=== PATIENT | male | born 1940 | race Caucasian/White ===

== ENCOUNTER 2021-03-08 20:44 | Inpatient (IN) | payer MEDICARE, OTHER ==
[~2021-03-08] VITALS: Ht 177.8 cm; Wt 97.4 kg
--- NOTE | 2021-03-08 20:55 | PDOC2 ---
CONSULT Date of Consult Date of Consult DATE: 03/08/21 TIME: 20:55 Reason for Consult Reason for Consult: Chest pain Referring Physician Referring Physician: Dr. Garcia Identification/Chief Complaint Chief Complaint Chest pain Source Source: Chart review, Patient History of Present Illness Reason for Visit: 80-year-old male without any previous cardiac history presented with chest pain, that he described as sharp in nature, worse with inspiration that began 4 days ago and has been there continuously. He complained of mild associated shortness of breath but denied any orthopnea/PND, palpitations or syncope. Past Medical History Past Medical History Gastroesophageal reflux disease Social History Social History Patient is a non-smoker and a nondrinker Allergies Allergies: Coded Allergies: No Known Drug Allergies (Unverified , 03/08/21) ROS PSYCHOLOGICAL ROS: No: Hallucinations Eyes: No Loss of vision HEENT: No: Epistaxis Respiratory: YES: Shortness of breath; No: Hemoptysis Cardiovascular: yes Chest Pain Gastrointestinal: No Vomiting, No Diarrhea Genitourinary: No Hematuria Neurological: No Seizures Skin: No Rash Physical Exam General: Alert, mild distress HEENT: Atraumatic Lungs: Clear to auscultation Heart: Regular rate Abdomen: Soft Extremities: No edema Neuro: Normal speech Psych/Mental Status: Mood NL Assessment/Plan Assessment/Plan Chest pain with pleuritic features. EKG showed sinus tachycardia with anterior ST depressions. Cannot rule out unstable angina or non-STEMI. Recommend CT chest to rule out PE due to pleuritic nature of his chest pain. Start heparin infusion per protocol. We will trend serial cardiac enzymes and if they are elevated, will consider cardiac catheterization. Thank you for your consultation. ELY TOLEDO MD Mar 08, 2021 20:55
[2021-03-08] MEDS ORDERED: HEPARIN 25,000UTS/250ML PREMIX 250 ML IV ONE (21:00)
[2021-03-08] MEDS ORDERED: fentaNYL PF VIAL 100 MCG/2 ML VIAL IVP ONE (21:00)
--- NOTE | 2021-03-08 21:05 | PHYS DOC ---
General Adult EDM: Chief Complaint: CHEST PAIN HPI: HPI: Patient is a 80 year old male brought in by EMS with report of chest pain which actually began 4 days ago. His pain was much subtle 4 days ago and became much worse this evening. He describes midsternal chest pain/pressure. He denies radiation of pain. He admits to nausea, dizziness and diaphoresis. He reports mild dyspnea and occasional mild pleuritic type chest pain, which is not persistent. He denies cough or hemoptysis. He denies fevers or chills. He denies leg pain or swelling. He denies syncope. He denies recent travel, surgery or hospitalization. He denies any previous similar symptoms. He denies any history of coronary artery disease, LA, or heart disease. He denies any previous history of cardiac evaluation. EMS gave him oral aspirin in route. He was noted to have ischemic changes on EKG. In route he was also noted to be tachycardic and hypotensive. He was given a 500 mL lactated Ringer's bolus in route with EMS. His blood pressure and heart rate are improved currently. EMS did indicate ST elevation in some anterior leads, with some ST depression in inferior leads. Therefore a STEMI was activated from the field. Dr. Machado was notified via phone of the patient's impending arrival, and he met the patient in the room shortly after the patient's arrival, examined him, examined the EKGs and assisted in direction of care. Review of Systems: Review of Systems: Constitutional: Denies fever or chills. [] Eyes: Denies change in visual acuity. [] HENT: Denies nasal congestion or sore throat. [] Respiratory: Denies cough, hemoptysis. Admits to some mild dyspnea. Cardiovascular: Reports chest pain. Denies peripheral edema. GI: Reports nausea and vomiting, though no vomiting in a few days. Denies abd ominal pain or diarrhea or constipation. : Denies urinary symptoms. Musculoskeletal: Denies back pain or joint pain. [] Integument: Denies rash. [] Neurologic: Denies headache, focal weakness or sensory changes. [] Endocrine: Denies polyuria or polydipsia. [] Lymphatic: Denies swollen glands. [] Psychiatric: Denies depression or anxiety. [] Heart Score: C/O Chest Pain: Yes HEART Score for Chest Pain: HEART Score for Chest Pain Response (Comments) Value History Highly Suspicious [address] Depression 2 Age > 65 2 Risk Factors 1 or 2 Risk Factors 1 Troponin >3 x Normal Limit 2 Total 9 Risk Factors: Risk Factors: DM, Current or recent (<one month) smoker, HTN, HLP, family history of CAD, obesity. Risk Scores: Score 0 - 3: 2.5% MACE over next 6 weeks - Discharge Home Score 4 - 6: 20.3% MACE over next 6 weeks - Admit for Clinical Observation Score 7 - 10: 72.7% MACE over next 6 weeks - Early Invasive Strategies Current Medications: Current Medications Medications (Trade) Dose Ordered Sig/Juan Start Time Stop Time Status Last Admin Dose Admin Fentanyl Citrate (Fentanyl 2ml Vial) 50 mcg 1X ONCE 03/08/21 21:00 03/08/21 21:01 UNV Heparin Sodium (Porcine) (Heparin Sodium) 4,000 unit 1X ONCE 03/08/21 21:00 10 21:01 UNV Heparin Sodium/ Dextrose 250 ml @ 0 mls/hr 1X ONCE 03/08/21 21:00 03/08/21 21:01 UNV Physical Exam: PE: Constitutional: Well developed, well nourished, nontoxic, mildly ill-appearing. Awake and alert and conversant on arrival. HENT: Normocephalic, atraumatic, bilateral external ears normal, oropharynx moist, no oral exudates, nose normal. [] Eyes: PERRLA, EOMI, conjunctiva normal, no discharge. [] Neck: Normal range of motion, no tenderness, supple, no stridor. [] Cardiovascular: Tachycardic, regular. +2 radial and posterior tibial pulses bilaterally. Cap refill is brisk, well-perfused appearing. Lungs & Thorax: Bilateral breath sounds clear to auscultation. No rales, rhonchi or wheezes. Equal chest rise. Speaks in full and clear sentences. No evidence of respiratory distress. Abdomen: Bowel sounds normal, soft, no tenderness, no masses, no pulsatile masses. [] Skin: Warm, dry, no erythema, no rash. [] Back: No tenderness, no CVA tenderness. [] Extremities: No tenderness, no cyanosis, no clubbing, ROM intact, no edema. No calf tenderness. Neurologic: Alert and oriented X 3, normal motor function, normal sensory function, no focal deficits noted. [] Psychologic: Affect normal, judgement normal, mood normal. [] EKG: EKG: EKG read at 2046. Rhythm is sinus tachycardia Rate is 113 bpm Frequent PVCs Incomplete right bundle branch block ST depression in anterior lateral leads No STEMI criteria. Second EKG read at 2232 Rhythm is sinus tachycardia Rate is 109 bpm Frequent PVCs No STEMI Radiology/Procedures: Radiology/Procedures: Chest x-ray is noted to demonstrate some mild cephalization, atelectasis in the left lower lobe. No other obvious acute process. Course & Med Decision Making: Course & Med Decision Making Pertinent Labs and Imaging studies reviewed. (See chart for details) Patient is given IV fentanyl and morphine for pain. He had already received oral aspirin. Dr. Machado had recommended heparin protocol, so heparin bolus and drip are initiated. IV magnesium, oral and IV potassium replacement are ordered. The patient is resting comfortably. His tachycardia is improving. His blood pressure is also improved. I have discussed the findings, differential diagnosis and plan of care with the patient. I have explained the plan for admission to the hospital. He verbalized understanding. Pat Disclaimer: Pat Disclaimer: This electronic medical record was generated, in whole or in part, using a voice recognition dictation system. Departure Departure Impression: Primary Impression: ACS (acute coronary syndrome) Disposition: ADMITTED INPATIENT Admitting Physician: SHAINA Condition: IMPROVED BRITTONGINGER DO Mar 08, 2021 21:05
[2021-03-08 21:21] LABS: BASO # 0.2 x10^3/uL (0.0-0.2); BASO % 1 % (0-3); EOS % 0 % (0-3); HEMOGLOBIN 12.4 g/dL (13.0-17.5); LYMPH # 1.6 x10^3/uL (1.0-4.8); LYMPH % 11 % (24-48); MEAN CORPUSCULAR HEMOGLOBIN 29 pg (25-35); MEAN CORPUSCULAR HGB CONC 34 g/dL (31-37); MEAN CORPUSCULAR VOLUME 86 fL (79-100); MONO # 0.9 x10^3/uL (0.0-1.1); MONO % 7 % (0-9); NEUT # 11.9 x10^3/uL (1.8-7.7); NEUT % 82 % (31-73); PLATELET COUNT 385 x10^3/uL (140-400); RED BLOOD COUNT 4.29 x10^6/uL (4.30-5.70); RED CELL DISTRIBUTION WIDTH 16.1 % (11.5-14.5); WHITE BLOOD COUNT 14.6 x10^3/uL (4.0-11.0)
[2021-03-08] MEDS ORDERED: HEPARIN for IV BOLUS 10,000 UNIT/10 ML VIAL. IV ONE (21:30)
[2021-03-08 21:36] LABS: ALBUMIN 2.5 g/dL (3.4-5.0); ALBUMIN/GLOBULIN RATIO 0.6 (1.0-1.7); CALCIUM 8.6 mg/dL (8.5-10.1); CREATININE 1.2 mg/dL (0.7-1.3); GFR 58.3; MAGNESIUM 1.6 mg/dL (1.8-2.4); TOTAL BILIRUBIN 0.7 mg/dL (0.2-1.0); TOTAL PROTEIN 6.7 g/dL (6.4-8.2)
[2021-03-08 21:39] LABS: POTASSIUM 2.6 mmol/L (3.5-5.1)
[2021-03-08] MEDS: HEPARIN 25,000UTS/250ML PREMIX 250 ML IV PRN (21:39)
[2021-03-08] MEDS ORDERED: POTASSIUM CHLORIDE 20MEQ 100 ML IV ONE (21:45)
[2021-03-08] MEDS ORDERED: POTASSIUM CHLORIDE 20 MEQ TABLET.ER. PO ONE (22:00)
[2021-03-08] MEDS ORDERED: MAGNESIUM SULFATE 1GM 100 ML IV ONE (22:00)
[2021-03-08] MEDS ORDERED: ONDANSETRON PF 4 MG/2 ML VIAL. IVP PRN (22:30)
[2021-03-08] MEDS ORDERED: MORPHINE SULFATE 4 MG/ML INJ. IVP ONE (23:00)
[2021-03-08] MEDS ORDERED: IV NORMAL SALINE 500ML BAG 500 ML IV ONE (23:00)
[2021-03-08] MEDS ORDERED: IV NORMAL SALINE 1000ML BAG 1,000 ML IV ONE (23:00)
--- NOTE | 2021-03-08 23:33 | EKG ---
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
--- NOTE | 2021-03-08 23:37 | EKG ---
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
--- NOTE | 2021-03-08 23:38 | RAD ---
INDICATION: Reason: chest pain / Spl. Instructions: / History: COMPARISON: August 2018 FINDINGS: Single view of chest obtained. Hypoexpanded exam. Linear opacity left lung base. Lead is seen projecting over the lower thoracic spi ne. Calcific atherosclerosis. Degenerative changes the spine. Severe degenerative changes left should er. Postoperative changes right shoulder with anchors seen. IMPRESSION: * Hypoexpanded exam with linear opacity at the left lung base which could be from atelectasis or inf iltrate. Electronically signed by: Rajiv Calderon MD (03/08/2021 11:36 PM) [id number]
[2021-03-08 23:40] VITALS: BP 99/75
[2021-03-08] MEDS: POTASSIUM CHLORIDE 10MEQ 100 ML IV SCH (23:54)
[2021-03-09] VITALS (11 sets, daily range): BP systolic 98–158; BP diastolic 61–89
[2021-03-09] MEDS: fentaNYL PF VIAL 100 MCG/2 ML VIAL IVP PRN ×3 (00:34→09:00)
[2021-03-09] MEDS: ANTI-COAG MONITOR BY PHARMACY. MC PRN ×2 (00:49→11:56)
[2021-03-09] MEDS: POTASSIUM CHLORIDE 10MEQ 100 ML IV SCH (01:03)
[2021-03-09] MEDS ORDERED: PRED2.5T PO (04:45)
[2021-03-09] MEDS ORDERED: MEMA10TA PO (04:45)
[2021-03-09] MEDS ORDERED: TRAM50TA PO (04:45)
[2021-03-09] MEDS ORDERED: OMEP20CA16 PO (04:45)
[2021-03-09] MEDS ORDERED: CHOL10004 PO (04:45)
[2021-03-09] MEDS ORDERED: MEGE40TA3 PO (04:45)
[2021-03-09] MEDS ORDERED: CYAN100072 PO (04:45)
[2021-03-09] MEDS ORDERED: ABIR250T PO (04:45)
[2021-03-09] MEDS ORDERED: FOLI0.4T5 PO (04:45)
[2021-03-09] MEDS ORDERED: CALC650T7 PO (04:45)
[2021-03-09 05:01] LABS: BASO % 0 % (0-3); EOS % 0 % (0-3); HEMATOCRIT 33.1 % (39.0-53.0); HEMOGLOBIN 11.2 g/dL (13.0-17.5); LYMPH # 0.8 x10^3/uL (1.0-4.8); LYMPH % 8 % (24-48); MEAN CORPUSCULAR HEMOGLOBIN 29 pg (25-35); MEAN CORPUSCULAR HGB CONC 34 g/dL (31-37); MEAN CORPUSCULAR VOLUME 87 fL (79-100); MONO # 0.8 x10^3/uL (0.0-1.1); MONO % 7 % (0-9); NEUT # 9.1 x10^3/uL (1.8-7.7); NEUT % 84 % (31-73); PLATELET COUNT 327 x10^3/uL (140-400); RED BLOOD COUNT 3.82 x10^6/uL (4.30-5.70); RED CELL DISTRIBUTION WIDTH 15.9 % (11.5-14.5); WHITE BLOOD COUNT 10.8 x10^3/uL (4.0-11.0)
[2021-03-09 05:18] LABS: CREATININE 1.2 mg/dL (0.7-1.3); GFR 58.3; MAGNESIUM 2.2 mg/dL (1.8-2.4)
[2021-03-09 05:34] LABS: CHOLESTEROL/HDL RATIO 5.4
[2021-03-09] MEDS: HEPARIN for IV BOLUS 10,000 UNIT/10 ML VIAL. IV PRN (09:19)
[2021-03-09] MEDS ORDERED: traMADol 50 MG TABLET PO PRN (09:30)
[2021-03-09] MEDS ORDERED: ONDANSETRON PF 4 MG/2 ML VIAL. IVP PRN (09:45)
[2021-03-09] MEDS ORDERED: CALCIUM CARBONATE 500 MG TAB.CHEW PO PRN (09:45)
[2021-03-09] MEDS ORDERED: ELECTROLYTE (NON-ICU) PROTOCOL. MC PRN (09:45)
[2021-03-09] MEDS ORDERED: IOHEXOL 350 MG/ML 100 ML VIAL. IV ONE (09:45)
--- NOTE | 2021-03-09 09:54 | PDOC1 ---
History and Physical Date of Service: DOS: DATE: 03/09/21 TIME: 09:37 Chief Complaint: Problems: (1) ACS (acute coronary syndrome) Chief Complain: Chest pain History of Present Illness: HPI: Patient is an 80-year-old white male was brought into the EMS overnight due to 4-day history of mid substernal chest pain. Says the pain started 4 days ago and at that point as it was not bothering her he just noticed that however last night he noticed it was getting much worse decided present. Describes the pain as more pleuritic than a crushing chest pain denies any recent illnesses. Denies any sort of cardiac history. He does report a history of prostate cancer currently in remission, he does have a lot of back pain from this. On presentation emergency room was found to have elevated troponin and some ST changes on his EKG thus heparin drip started cardiology consulted troponins t rended overnight appear to have peaked. Given pleuritic nature of chest pain will perform CTA of the chest. Continue heparin drip. Past Medical/Surgical History: PMH/PSH: Metastatic prostate cancer Allergies: Allergies: Coded Allergies: No Known Drug Allergies (Unverified , 03/08/21) Family History: Family History: Reviewed with patient no known Social History: Social History: Denies alcohol tobacco drug use Current Medications: Current Medications Current Medications Heparin Sodium (Porcine) (Heparin Sodium) 4,000 unit 1X ONCE IV Last administered on 03/08/21at 21:37; Start 03/08/21 at 21:30; Stop 03/08/21 at 21:31; Status DC Heparin Sodium/ Dextrose 250 ml @ 0 mls/hr 1X ONCE IV ; Start 03/08/21 at 21:00; Stop 03/08/21 at 21:01; Status UNV Fentanyl Citrate (Fentanyl 2ml Vial) 50 mcg 1X ONCE IVP Last administered on 03/08/21at 21:41; Start 03/08/21 at 21:00; Stop 03/08/21 at 21:21; Status DC Heparin Sodium/ Dextrose 250 ml @ 10 mls/hr CONT PRN IV PER PROTOCOL Last administered on 03/08/21at 21:39; Start 03/08/21 at 21:30 Heparin Sodium (Porcine) (Heparin Sodium) 2,250 unit PRN Q6HRS PRN IV FOR UFH LEVEL LESS THAN 0.2 Last administered on 03/09/21 09:19; Start 03/08/21 at 21:30 Info (Anti-Coagulation Monitoring By Pharmacy) 1 each PRN DAILY PRN MC PER PROTOCOL Last administered on 03/09/21at 00:49; Start 03/08/21 at 21:30 Potassium Chloride (Klor-Con) 40 meq 1X ONCE PO Last administered on 03/08/21 22:22; Start 03/08/21 at 22:00; Stop 03/08/21 at 22:01; Status DC Magnesium Sulfate/ Dextrose 100 ml @ 100 mls/hr 1X ONCE IV Last administered on 03/08/21 22:23; Start 03/08/21 at 22:00; Stop 03/08/21 at 22:59; Status DC Potassium Chloride/Water 100 ml @ 50 mls/hr 1X ONCE IV ; Start 03/08/21 at 21:45; Stop 03/08/21 at 23:44; Status UNV Potassium Chloride/Water 100 ml @ 100 mls/hr Q1H IV Last administered on 03/09/21at 01:03; Start 03/08/21 at 22:00; Stop 03/08/21 at 23:59; Status DC Ondansetron HCl (Zofran) 4 mg PRN Q8HRS PRN IVP NAUSEA/VOMITING 1ST CHOICE; Start 03/08/21 at 22:30; Stop 03/09/21 at 22:29 Fentanyl Citrate (Fentanyl 2ml Vial) 50 mcg PRN Q2HRS PRN IVP CHEST PAIN Last administered on 03/09/21 09:00; Start 03/08/21 at 22:30 Sodium Chloride 1,000 ml @ 75 mls/hr 1X ONCE IV Last administered on 03/09/21at 01:48; Start 03/08/21 at 23:00; Stop 03/09/21 at 12:19 Sodium Chloride 500 ml @ 500 mls/hr 1X ONCE IV Last administered on 03/08/21at 22:48; Start 03/08/21 at 23:00; Stop 03/08/21 at 23:59; Status DC Morphine Sulfate (Morphine Sulfate) 4 mg 1X ONCE IVP Last administered on 03/08/21at 22:47; Start 03/08/21 at 23:00; Stop 03/08/21 at 23:01; Status DC Vitamin D (Vitamin D3) 1,000 unit DAILY PO ; Start 03/09/21 at 10:00 Cyanocobalamin (Vitamin B-12) 1,000 mcg DAILY PO ; Start 03/09/21 at 10:00 Memantine (Namenda) 5 mg BID PO ; Start 03/09/21 at 10:00 Tramadol HCl (Ultram) 50 mg PRN BID PRN PO PAIN; Start 03/09/21 at 09:30; Stop 03/09/21 at 09:32; Status DC Megestrol Acetate (Megace) 40 mg BID PO ; Start 03/09/21 at 10:00 Pantoprazole Sodium (Protonix) 40 mg DAILYAC PO ; Start 03/09/21 at 10:00 Tramadol HCl (Ultram) 50 mg PRN Q6HRS PRN PO PAIN; Start 03/09/21 at 09:30 Ondansetron HCl (Zofran) 4 mg PRN Q6HRS PRN IVP NAUSEA/VOMITING; Start 03/09/21 at 09:45; Status UNV Calcium Carbonate/ Glycine (Tums) 500 mg PRN Q3HRS PRN PO UPSET STOMACH; Start 03/09/21 at 09:45; Status UNV Zolpidem Tartrate (Ambien) 5 mg PRN QHS PRN PO INSOMNIA, MAY REPEAT IN 1HR; Start 03/09/21 at 09:45; Status UNV Info (Non-Icu Electrolyte Protocol) 1 ea PRN DAILY PRN MC SEE COMMENTS; Start 03/09/21 at 09:45; Status UNV Oxycodone HCl (Roxicodone) 5 mg PRN Q3HRS PRN PO BREAKTHROUGH PAIN; Start 03/09/21 at 09:45; Status UNV Acetaminophen (Tylenol) 650 mg PRN Q6HRS PRN PO Headaches, Temp > 101.5F; Start 03/09/21 at 09:45; Status UNV Senna/Docusate Sodium (Senna Plus) 1 tab BID PO ; Start 03/09/21 at 21:00; Status UNV Iohexol (Omnipaque 350 Mg/ml) 90 ml 1X ONCE IV ; Start 03/09/21 at 09:45; Stop 03/09/21 at 09:46; Status UNV Active Scripts Active Reported Vitamin D3 (Vitamin D) 25 Mcg Tablet 25 Mcg PO DAILY 1,000 UNITS = 25 MCG B-12 (Cyanocobalamin (Vitamin B-12)) 1,000 Mcg Tablet 1,000 Mcg PO DAILY Folic Acid 0.4 Mg Tablet 1 Mg PO DAILY Tramadol Hcl 50 Mg Tablet 50 Mg PO PRN BID PRN Calcium Carbonate 650 Mg Tablet 2 Tab PO DAILY 30 Days Megestrol Acetate 40 Mg Tablet 40 Mg PO BID Namenda (Memantine Hcl) 10 Mg Tablet 5 Mg PO BID Omeprazole 20 Mg Capsule.dr 20 Mg PO DAILY Prednisone 2.5 Mg Tablet 5 Mg PO BID Zytiga (Abiraterone Acetate) 250 Mg Tablet 4 Tab PO DAILY 30 Days ROS: Review of Systems Review of System Unless noted in HPI 14 point review of systems was negative Physical Exam: Vital Signs: Vital Signs Date Time Temp Pulse Resp B/P (MAP) Pulse Ox O2 Delivery O2 Flow Rate FiO2 03/09/21 09:34 97 2.0 03/09/21 07:00 99.6 94 20 136/80 (98) Nasal Cannula 99.6 Physcial Exam: GEN: No apparent distress. Alert and oriented HEENT: Normal cephalic, atraumatic, external auditory canals are patent EYES: Extraocular muscles are intact, pupil are equally round and reactive to light and accommodation MUSCULOSKELETAL: Well developed , well nourished, good range of motion ENDOCRINE: No thyromegaly was palpated LYMPHATICS: No cervical chain or axillary nodes were noted HEMATOPOIETIC: No bruising NECK: Supple, no JVD, no thyromegaly was noted LUNGS: Clear to auscultation in all lung yancey without rhonchi or wheezing HEART: RRR, S!, S2 present. Peripheral pulses intact, no obvious murmurs noted ABDOMEN: Soft, nontender. Positive bowel sounds, no organomegaly, normal bowel sounds EXTREMITIES: Without clubbing, cyanosis, or edema. Pedal pulses intact. NEUROLOGIC: Normal speech and tone. A&O x 3, moves all extremities, no obvious focal deficits PSYCHIATRIC: Normal affect, normal mood. Stable SKIN: No ulcerations or rashes, good skin turgor, no jaundice VASCULAR: Good capillary refill, neurovascular bundle appears to be intact Labs: Labs: Laboratory Tests Test 03/08/21 20:45 03/08/21 23:08 03/09/21 01:00 03/09/21 04:30 White Blood Count 14.6 x10^3/uL (4.0-11.0) 10.8 x10^3/uL (4.0-11.0) Red Blood Count 4.29 x10^6/uL (4.30-5.70) 3.82 x10^6/uL (4.30-5.70) Hemoglobin 12.4 g/dL (13.0-17.5) 11.2 g/dL (13.0-17.5) Hematocrit 37.0 % (39.0-53.0) 33.1 % (39.0-53.0) Mean Corpuscular Volume 86 fL (79-100) 87 fL (79-100) Mean Corpuscular Hemoglobin 29 pg (25-35) 29 pg (25-35) Mean Corpuscular Hemoglobin Concent 34 g/dL (31-37) 34 g/dL (31-37) Red Cell Distribution Width 16.1 % (11.5-14.5) 15.9 % (11.5-14.5) Platelet Count 385 x10^3/uL (140-400) 327 x10^3/uL (140-400) Neutrophils (%) (Auto) 82 % (31-73) 84 % (31-73) Lymphocytes (%) (Auto) 11 % (24-48) 8 % (24-48) Monocytes (%) (Auto) 7 % (0-9) 7 % (0-9) Eosinophils (%) (Auto) 0 % (0-3) 0 % (0-3) Basophils (%) (Auto) 1 % (0-3) 0 % (0-3) Neutrophils # (Auto) 11.9 x10^3/uL (1.8-7.7) 9.1 x10^3/uL (1.8-7.7) Lymphocytes # (Auto) 1.6 x10^3/uL (1.0-4.8) 0.8 x10^3/uL (1.0-4.8) Monocytes # (Auto) 0.9 x10^3/uL (0.0-1.1) 0.8 x10^3/uL (0.0-1.1) Eosinophils # (Auto) 0.0 x10^3/uL (0.0-0.7) 0.0 x10^3/uL (0.0-0.7) Basophils # (Auto) 0.2 x10^3/uL (0.0-0.2) 0.0 x10^3/uL (0.0-0.2) D-Dimer (Belle) < 0.27 ug/mlFEU Sodium Level 140 mmol/L (136-145) 141 mmol/L (136-145) Potassium Level 2.6 mmol/L (3.5-5.1) 4.0 mmol/L (3.5-5.1) Chloride Level 103 mmol/L (98-107) 105 mmol/L (98-107) Carbon Dioxide Level 26 mmol/L (21-32) 27 mmol/L (21-32) Anion Gap 11 (6-14) 9 (6-14) Blood Urea Nitrogen 11 mg/dL (8-26) 14 mg/dL (8-26) Creatinine 1.2 mg/dL (0.7-1.3) 1.2 mg/dL (0.7-1.3) Estimated GFR (Cockcroft-Gault) 58.3 58.3 BUN/Creatinine Ratio 9 (6-20) Glucose Level 159 mg/dL (70-99) 121 mg/dL (70-99) Calcium Level 8.6 mg/dL (8.5-10.1) 8.0 mg/dL (8.5-10.1) Magnesium Level 1.6 mg/dL (1.8-2.4) 2.2 mg/dL (1.8-2.4) Total Bilirubin 0.7 mg/dL (0.2-1.0) Aspartate Amino Transf (AST/SGOT) 30 U/L (15-37) Alanine Aminotransferase (ALT/SGPT) 20 U/L (16-63) Alkaline Phosphatase 77 U/L (46-116) Troponin I Quantitative 9.188 ng/mL (0.000-0.055) 7.271 ng/mL (0.000-0.055) 6.557 ng/mL (0.000-0.055) VP-Ibq-M-Type Natriuretic Peptide 1228 pg/mL (0-449) Total Protein 6.7 g/dL (6.4-8.2) Albumin 2.5 g/dL (3.4-5.0) Albumin/Globulin Ratio 0.6 (1.0-1.7) Lipase 58 U/L (73-393) SARS-CoV-2 Antigen (Rapid) Negative (NEGATIVE) Heparin Anti-Xa Act, Unfractionated 0.17 IU/mL (0.30-0.70) Triglycerides Level 140 mg/dL (0-150) Cholesterol Level 166 mg/dL (0-200) LDL Cholesterol, Calculated 107 mg/dL (0-100) VLDL Cholesterol, Calculated 28 mg/dL (0-40) Non-HDL Cholesterol Calculated 135 mg/dL (0-129) HDL Cholesterol 31 mg/dL (40-60) Cholesterol/HDL Ratio 5.4 Laboratory Tests Test 03/08/21 20:45 03/08/21 23:08 03/09/21 01:00 03/09/21 04:30 White Blood Count 14.6 x10^3/uL (4.0-11.0) 10.8 x10^3/uL (4.0-11.0) Red Blood Count 4.29 x10^6/uL (4.30-5.70) 3.82 x10^6/uL (4.30-5.70) Hemoglobin 12.4 g/dL (13.0-17.5) 11.2 g/dL (13.0-17.5) Hematocrit 37.0 % (39.0-53.0) 33.1 % (39.0-53.0) Mean Corpuscular Volume 86 fL (79-100) 87 fL (79-100) Mean Corpuscular Hemoglobin 29 pg (25-35) 29 pg (25-35) Mean Corpuscular Hemoglobin Concent 34 g/dL (31-37) 34 g/dL (31-37) Red Cell Distribution Width 16.1 % (11.5-14.5) 15.9 % (11.5-14.5) Platelet Count 385 x10^3/uL (140-400) 327 x10^3/uL (140-400) Neutrophils (%) (Auto) 82 % (31-73) 84 % (31-73) Lymphocytes (%) (Auto) 11 % (24-48) 8 % (24-48) Monocytes (%) (Auto) 7 % (0-9) 7 % (0-9) Eosinophils (%) (Auto) 0 % (0-3) 0 % (0-3) Basophils (%) (Auto) 1 % (0-3) 0 % (0-3) Neutrophils # (Auto) 11.9 x10^3/uL (1.8-7.7) 9.1 x10^3/uL (1.8-7.7) Lymphocytes # (Auto) 1.6 x10^3/uL (1.0-4.8) 0.8 x10^3/uL (1.0-4.8) Monocytes # (Auto) 0.9 x10^3/uL (0.0-1.1) 0.8 x10^3/uL (0.0-1.1) Eosinophils # (Auto) 0.0 x10^3/uL (0.0-0.7) 0.0 x10^3/uL (0.0-0.7) Basophils # (Auto) 0.2 x10^3/uL (0.0-0.2) 0.0 x10^3/uL (0.0-0.2) D-Dimer (Belle) < 0.27 ug/mlFEU Sodium Level 140 mmol/L (136-145) 141 mmol/L (136-145) Potassium Level 2.6 mmol/L (3.5-5.1) 4.0 mmol/L (3.5-5.1) Chloride Level 103 mmol/L (98-107) 105 mmol/L (98-107) Carbon Dioxide Level 26 mmol/L (21-32) 27 mmol/L (21-32) Anion Gap 11 (6-14) 9 (6-14) Blood Urea Nitrogen 11 mg/dL (8-26) 14 mg/dL (8-26) Creatinine 1.2 mg/dL (0.7-1.3) 1.2 mg/dL (0.7-1.3) Estimated GFR (Cockcroft-Gault) 58.3 58.3 BUN/Creatinine Ratio 9 (6-20) Glucose Level 159 mg/dL (70-99) 121 mg/dL (70-99) Calcium Level 8.6 mg/dL (8.5-10.1) 8.0 mg/dL (8.5-10.1) Magnesium Level 1.6 mg/dL (1.8-2.4) 2.2 mg/dL (1.8-2.4) Total Bilirubin 0.7 mg/dL (0.2-1.0) Aspartate Amino Transf (AST/SGOT) 30 U/L (15-37) Alanine Aminotransferase (ALT/SGPT) 20 U/L (16-63) Alkaline Phosphatase 77 U/L (46-116) Troponin I Quantitative 9.188 ng/mL (0.000-0.055) 7.271 ng/mL (0.000-0.055) 6.557 ng/mL (0.000-0.055) VI-Bpk-Y-Type Natriuretic Peptide 1228 pg/mL (0-449) Total Protein 6.7 g/dL (6.4-8.2) Albumin 2.5 g/dL (3.4-5.0) Albumin/Globulin Ratio 0.6 (1.0-1.7) Lipase 58 U/L (73-393) SARS-CoV-2 Antigen (Rapid) Negative (NEGATIVE) Heparin Anti-Xa Act, Unfractionated 0.17 IU/mL (0.30-0.70) Triglycerides Level 140 mg/dL (0-150) Cholesterol Level 166 mg/dL (0-200) LDL Cholesterol, Calculated 107 mg/dL (0-100) VLDL Cholesterol, Calculated 28 mg/dL (0-40) Non-HDL Cholesterol Calculated 135 mg/dL (0-129) HDL Cholesterol 31 mg/dL (40-60) Cholesterol/HDL Ratio 5.4 Assessment/Plan Assessment/Plan ACS, history metastatic prostate cancer -Admitted after 4-day history of chest pain -EKG changes in emergency room, significantly elevated troponin. Cardiology consulted -Continue heparin drip. Received 325 aspirin in ED last night -Discussed case with Dr. Machado -CT PE ordered given patient's pleuritic nature of chest pain -Home meds resumed as indicated -Heparin drip starting as DVT prophylaxis -Cardiac diet I spent approximately 15 minutes discussing CODE STATUS and advanced care planning with patient and family member at bedside Justifications for Admission Other Justification ZENIA MIGUEL MD Mar 09, 2021 09:54
[2021-03-09] MEDS: MEGESTROL 20 MG TABLET. PO SCH ×2 (10:00→20:59)
--- NOTE | 2021-03-09 10:38 | RAD ---
Examination: CT angiography chest with IV contrast HISTORY: History of pulmonary embolism, shortness of breath COMPARISON: None available TECHNIQUE: Axial CT angiographic images of chest were performed with IV contrast. Coronal and sagitta l 3-D MIP reformats are performed Exposure: One or more of the following individualized dose reduction techniques were utilized for thi s examination: 1. Automated exposure control 2. Adjustment of the mA and/or kV according to patient size 3. Use of iterative reconstruction technique FINDINGS: Enlarged left lobe of the thyroid gland with large hypodensity measuring 4.6 cm likely large thyroid nodule. The central airways are patent. The caliber of the aorta grossly appears unremarkable. There is no evidence of filling defect identified in the main pulmonary arterial trunk and right and left m ain pulmonary arteries and the visualized lobar, segmental branches of the pulmonary arteries. Small pericardial effusion is identified. Mild bilateral lung emphysematous changes. There are mild patchy airspace opacities bibasilar lungs likely atelectasis or infiltrates. Small focal consolidation left lung base. There is a 1.2 cm hypodensity identified in the right lobe of the liver. The spleen, adren als grossly appears unremarkable. Moderate degenerative changes thoracic spine. Spinal stimulator projects in the mid thoracic vertebra l level IMPRESSION: 1. No evidence of pulmonary embolism. 2. Mild pericardial effusion. 3. Mild patchy airspace opacities bibasilar lungs likely atelectasis or infiltrates. Small focal con solidation left lung base could be atelectasis or pneumonia. Follow-up to resolution. 4. Enlarged left lobe of the thyroid gland with large hypodensity measuring 4.6 cm likely large thyr oid nodule. Follow-up nonemergent ultrasound thyroid gland can be considered. 5. 1.2 cm hypodensity identified in the right lobe of the liver could be a cyst or cystic lesion or hemangioma. Nonemergent MRI can be considered. Electronically signed by: Valentin العراقي MD (03/09/2021 10:36 AM) [id number]
--- NOTE | 2021-03-09 11:30 | PDOC ---
PROGRESS NOTES Date of Service: DATE: 03/09/21 TIME: 11:30 Subjective Subjective Continues to complain of atypical, sharp/stabbing chest pain worse with deep inspiration. Objective Objective Vital Signs Date Time Temp Pulse Resp B/P (MAP) Pulse Ox O2 Delivery O2 Flow Rate FiO2 03/09/21 09:34 97 2.0 03/09/21 07:00 99.6 94 20 136/80 (98) Nasal Cannula 99.6 Intake and Output 03/09/21 07:00 Intake Total 0 ml Balance 0 ml Intake Oral 0 ml Physical Exam Abdomen: Soft Heart: Regular rate Extremities: No edema General: Alert, mild distress HEENT: Atraumatic Lungs: Clear to auscultation Neuro: Normal speech Psych/Mental Status: Mood NL Assessment Assessment 1. Non-STEMI with atypical chest pain. His chest pain appears to be pleuritic. CT chest did not show any acute pulmonary embolism. Chest x-ray suggestive of pneumonia. Agree with initiation of intravenous antibiotics. Continue heparin infusion per protocol. Consider cardiac catheterization tomorrow/Thursday to rule out any significant coronary artery disease. 2. GERD: Continue proton pump inhibitors. 3. Dementia Plan Plan of Care Problems Medical Problems: (1) ACS (acute coronary syndrome) Status: Acute Comment Review of Relevant I have reviewed the following items lindy (where applicable) has been applied. Labs Laboratory Tests Test 03/08/21 20:45 03/08/21 23:08 03/09/21 01:00 03/09/21 04:30 White Blood Count 14.6 x10^3/uL (4.0-11.0) 10.8 x10^3/uL (4.0-11.0) Red Blood Count 4.29 x10^6/uL (4.30-5.70) 3.82 x10^6/uL (4.30-5.70) Hemoglobin 12.4 g/dL (13.0-17.5) 11.2 g/dL (13.0-17.5) Hematocrit 37.0 % (39.0-53.0) 33.1 % (39.0-53.0) Mean Corpuscular Volume 86 fL (79-100) 87 fL (79-100) Mean Corpuscular Hemoglobin 29 pg (25-35) 29 pg (25-35) Mean Corpuscular Hemoglobin Concent 34 g/dL (31-37) 34 g/dL (31-37) Red Cell Distribution Width 16.1 % (11.5-14.5) 15.9 % (11.5-14.5) Platelet Count 385 x10^3/uL (140-400) 327 x10^3/uL (140-400) Neutrophils (%) (Auto) 82 % (31-73) 84 % (31-73) Lymphocytes (%) (Auto) 11 % (24-48) 8 % (24-48) Monocytes (%) (Auto) 7 % (0-9) 7 % (0-9) Eosinophils (%) (Auto) 0 % (0-3) 0 % (0-3) Basophils (%) (Auto) 1 % (0-3) 0 % (0-3) Neutrophils # (Auto) 11.9 x10^3/uL (1.8-7.7) 9.1 x10^3/uL (1.8-7.7) Lymphocytes # (Auto) 1.6 x10^3/uL (1.0-4.8) 0.8 x10^3/uL (1.0-4.8) Monocytes # (Auto) 0.9 x10^3/uL (0.0-1.1) 0.8 x10^3/uL (0.0-1.1) Eosinophils # (Auto) 0.0 x10^3/uL (0.0-0.7) 0.0 x10^3/uL (0.0-0.7) Basophils # (Auto) 0.2 x10^3/uL (0.0-0.2) 0.0 x10^3/uL (0.0-0.2) D-Dimer (Belle) < 0.27 ug/mlFEU Sodium Level 140 mmol/L (136-145) 141 mmol/L (136-145) Potassium Level 2.6 mmol/L (3.5-5.1) 4.0 mmol/L (3.5-5.1) Chloride Level 103 mmol/L (98-107) 105 mmol/L (98-107) Carbon Dioxide Level 26 mmol/L (21-32) 27 mmol/L (21-32) Anion Gap 11 (6-14) 9 (6-14) Blood Urea Nitrogen 11 mg/dL (8-26) 14 mg/dL (8-26) Creatinine 1.2 mg/dL (0.7-1.3) 1.2 mg/dL (0.7-1.3) Estimated GFR (Cockcroft-Gault) 58.3 58.3 BUN/Creatinine Ratio 9 (6-20) Glucose Level 159 mg/dL (70-99) 121 mg/dL (70-99) Calcium Level 8.6 mg/dL (8.5-10.1) 8.0 mg/dL (8.5-10.1) Magnesium Level 1.6 mg/dL (1.8-2.4) 2.2 mg/dL (1.8-2.4) Total Bilirubin 0.7 mg/dL (0.2-1.0) Aspartate Amino Transf (AST/SGOT) 30 U/L (15-37) Alanine Aminotransferase (ALT/SGPT) 20 U/L (16-63) Alkaline Phosphatase 77 U/L (46-116) Troponin I Quantitative 9.188 ng/mL (0.000-0.055) 7.271 ng/mL (0.000-0.055) 6.557 ng/mL (0.000-0.055) TB-Jke-H-Type Natriuretic Peptide 1228 pg/mL (0-449) Total Protein 6.7 g/dL (6.4-8.2) Albumin 2.5 g/dL (3.4-5.0) Albumin/Globulin Ratio 0.6 (1.0-1.7) Lipase 58 U/L (73-393) SARS-CoV-2 Antigen (Rapid) Negative (NEGATIVE) Heparin Anti-Xa Act, Unfractionated 0.17 IU/mL (0.30-0.70) Triglycerides Level 140 mg/dL (0-150) Cholesterol Level 166 mg/dL (0-200) LDL Cholesterol, Calculated 107 mg/dL (0-100) VLDL Cholesterol, Calculated 28 mg/dL (0-40) Non-HDL Cholesterol Calculated 135 mg/dL (0-129) HDL Cholesterol 31 mg/dL (40-60) Cholesterol/HDL Ratio 5.4 Medications Current Medications Acetaminophen (Tylenol) 650 mg PRN Q6HRS PRN PO Headaches, Temp > 101.5F; Start 03/09/21 at 09:45 Calcium Carbonate/ Glycine (Tums) 500 mg PRN Q3HRS PRN PO UPSET STOMACH; Start 03/09/21 at 09:45 Cyanocobalamin (Vitamin B-12) 1,000 mcg DAILY PO ; Start 03/09/21 at 10:00 Fentanyl Citrate (Fentanyl 2ml Vial) 50 mcg 1X ONCE IVP Last administered on 03/08/21at 21:41; Start 03/08/21 at 21:00; Stop 03/08/21 at 21:21; Status DC Fentanyl Citrate (Fentanyl 2ml Vial) 50 mcg PRN Q2HRS PRN IVP CHEST PAIN Last administered on 03/09/21at 09:00; Start 03/08/21 at 22:30 Heparin Sodium (Porcine) (Heparin Sodium) 2,250 unit PRN Q6HRS PRN IV FOR UFH LEVEL LESS THAN 0.2 Last administered on 03/09/21at 09:19; Start 03/08/21 at 21:30 Heparin Sodium (Porcine) (Heparin Sodium) 4,000 unit 1X ONCE IV Last administered on 03/08/21at 21:37; Start 03/08/21 at 21:30; Stop 03/08/21 at 21:31; Status DC Heparin Sodium/ Dextrose 250 ml @ 10 mls/hr CONT PRN IV PER PROTOCOL Last ad ministered on 03/08/21at 21:39; Start 03/08/21 at 21:30 Heparin Sodium/ Dextrose 250 ml @ 0 mls/hr 1X ONCE IV ; Start 03/08/21 at 21:00; Stop 03/08/21 at 21:01; Status UNV Info (Anti-Coagulation Monitoring By Pharmacy) 1 each PRN DAILY PRN MC PER PROTOCOL Last administered on 03/09/21at 00:49; Start 03/08/21 at 21:30 Info (Non-Icu Electrolyte Protocol) 1 ea PRN DAILY PRN MC SEE COMMENTS; Start 03/09/21 at 09:45 Iohexol (Omnipaque 350 Mg/ml) 90 ml 1X ONCE IV Last administered on 03/09/21at 09:50; Start 03/09/21 at 09:45; Stop 03/09/21 at 09:46; Status DC Magnesium Sulfate/ Dextrose 100 ml @ 100 mls/hr 1X ONCE IV Last administered on 03/08/21at 22:23; Start 03/08/21 at 22:00; Stop 03/08/21 at 22:59; Status DC Megestrol Acetate (Megace) 40 mg BID PO ; Start 03/09/21 at 10:00 Memantine (Namenda) 5 mg BID PO ; Start 03/09/21 at 10:00 Morphine Sulfate (Morphine Sulfate) 4 mg 1X ONCE IVP Last administered on 03/08/21at 22:47; Start 03/08/21 at 23:00; Stop 03/08/21 at 23:01; Status DC Morphine Sulfate (Morphine Sulfate) 4 mg PRN Q2HR PRN IV PAIN; Start 03/09/21 at 09:45 Nitroglycerin (Nitro-Dur 0.4mg) 1 patch DAILY TD ; Start 03/09/21 at 10:00 Non-Formulary Medication (Abiraterone Acetate (Zytiga)) 4 tab DAILYAC PO ; Start 03/09/21 at 11:30 Ondansetron HCl (Zofran) 4 mg PRN Q6HRS PRN IVP NAUSEA/VOMITING; Start 03/09/21 at 09:45 Ondansetron HCl (Zofran) 4 mg PRN Q8HRS PRN IVP NAUSEA/VOMITING 1ST CHOICE; Start 03/08/21 at 22:30; Stop 03/09/21 at 22:29 Oxycodone HCl (Roxicodone) 5 mg PRN Q3HRS PRN PO BREAKTHROUGH PAIN; Start 03/09/21 at 09:45 Pantoprazole Sodium (Protonix) 40 mg DAILYAC PO ; Start 03/09/21 at 10:00 Potassium Chloride/Water 100 ml @ 50 mls/hr 1X ONCE IV ; Start 03/08/21 at 21:45; Stop 03/08/21 at 23:44; Status UNV Potassium Chloride/Water 100 ml @ 100 mls/hr Q1H IV Last administered on 03/09/21at 01:03; Start 03/08/21 at 22:00; Stop 03/08/21 at 23:59; Status DC Potassium Chloride (Klor-Con) 40 meq 1X ONCE PO Last administered on 03/08/21at 22:22; Start 03/08/21 at 22:00; Stop 03/08/21 at 22:01; Status DC Senna/Docusate Sodium (Senna Plus) 1 tab BID PO ; Start 03/09/21 at 21:00 Sodium Chloride 500 ml @ 500 mls/hr 1X ONCE IV Last administered on 03/08/21at 22:48; Start 03/08/21 at 23:00; Stop 03/08/21 at 23:59; Status DC Sodium Chloride 1,000 ml @ 75 mls/hr 1X ONCE IV Last administered on 03/09/21at 01:48; Start 03/08/21 at 23:00; Stop 03/09/21 at 12:19 Tramadol HCl (Ultram) 50 mg PRN BID PRN PO PAIN; Start 03/09/21 at 09:30; Stop 03/09/21 at 09:32; Status DC Tramadol HCl (Ultram) 50 mg PRN Q6HRS PRN PO PAIN; Start 03/09/21 at 09:30 Vitamin D (Vitamin D3) 1,000 unit DAILY PO ; Start 03/09/21 at 10:00 Zolpidem Tartrate (Ambien) 5 mg PRN QHS PRN PO INSOMNIA, MAY REPEAT IN 1HR; Start 03/09/21 at 09:45 Vitals/I & O Vital Sign - Last 24 Hours 03/08/21 03/08/21 03/08/21 03/08/21 20:44 21:09 21:39 21:41 Temp 98.4 98.4 Pulse 107 115 111 Resp 18 18 B/P (MAP) 107/73 (84) 101/68 (79) 102/73 (83) Pulse Ox 98 97 98 98 O2 Delivery Room Air Room Air Room Air Room Air 03/08/21 03/08/21 03/08/21 03/08/21 21:54 22:24 22:47 23:09 Pulse 110 103 104 Resp 22 B/P (MAP) 113/57 (75) 115/66 (82) 103/75 (84) Pulse Ox 98 97 97 97 O2 Delivery Room Air Room Air Room Air 03/08/21 03/08/21 03/09/21 03/09/21 23:24 23:40 00:34 03:30 Temp 98.4 98.4 98.4 98.4 Pulse 101 105 98 Resp 21 24 B/P (MAP) 113/71 (85) 99/75 (83) 134/84 (101) Pulse Ox 97 96 93 O2 Delivery Room Air Room Air Room Air Room Air 03/09/21 03/09/21 03/09/21 07:00 09:00 09:34 Temp 99.6 99.6 Pulse 94 Resp 20 B/P (MAP) 136/80 (98) Pulse Ox 97 97 97 O2 Delivery Nasal Cannula O2 Flow Rate 2.0 2.0 2.0 Intake and Output 03/08/21 03/08/21 03/09/21 15:00 23:00 07:00 Intake Total 0 ml Balance 0 ml ELY TOLEDO MD Mar 09, 2021 11:30
[2021-03-09] MEDS: CHOLECALCIFEROL (VITAMIN D3) 1,000 UNIT TABLET PO SCH (11:31)
[2021-03-09] MEDS: oxyCODONE IR 5 MG TABLET PO PRN ×3 (11:31→20:50)
[2021-03-09] MEDS: CYANOCOBALAMIN (VITAMIN B-12) 1,000 MCG TABLET. PO SCH (11:31)
[2021-03-09] MEDS: MEMANTINE 5 MG TABLET. PO SCH ×2 (11:31→20:49)
[2021-03-09] MEDS: PANTOPRAZOLE 40 MG TABLET.DR. PO SCH (11:41)
[2021-03-09] MEDS: ABIRATERONE ACETATE PO SCH (11:46)
[2021-03-09] MEDS: NITROGLYCERIN 0.4MG/HR PATCH. TD SCH (11:47)
[2021-03-09] MEDS: MORPHINE SULFATE 4 MG/ML INJ. IV PRN ×3 (11:58→20:51)
--- NOTE | 2021-03-09 13:06 | EKG ---
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
[2021-03-09] MEDS: AMPICILLIN/SULBACTAM 1.5 GM in IV NORMAL SALINE 50ML 50 ML IV SCH ×3 (13:19→23:48)
[2021-03-09] MEDS: DOXYCYCLINE HYCLATE 100 MG TABLET PO SCH ×2 (13:19→20:49)
[2021-03-09] MEDS: HEPARIN 25,000UTS/250ML PREMIX 250 ML IV PRN (17:52)
[2021-03-09] MEDS ORDERED: NITROGLYCERIN SUBLINGUAL 0.4 MG BOTTLE OF 25. SL PRN (18:00)
[2021-03-09] MEDS ORDERED: NITROGLYCERIN SUBLINGUAL 0.4 MG BOTTLE OF 25. SL ONE (18:02)
[2021-03-09] MEDS: traMADol 50 MG TABLET PO PRN (18:03)
[2021-03-09] MEDS ORDERED: NITROGLYCERIN PREMIX 250 ML IV PRN (18:30)
[2021-03-09] MEDS: SENNOSIDES/DOCUSATE 8.6/50MG TABLET. PO SCH (20:49)
[2021-03-09] MEDS: ZOLPIDEM 5 MG TABLET. PO PRN (20:49)
[2021-03-10] VITALS (35 sets, daily range): BP systolic 89–144; BP diastolic 53–81
[2021-03-10] MEDS ORDERED: DIGOXIN IV 500 MCG/2 ML AMPUL. IV ONE ×2 (03:30→05:00)
[2021-03-10] MEDS: AMPICILLIN/SULBACTAM 1.5 GM in IV NORMAL SALINE 50ML 50 ML IV SCH ×3 (04:52→18:29)
[2021-03-10 05:55] LABS: CALCIUM 8.4 mg/dL (8.5-10.1); CREATININE 1.1 mg/dL (0.7-1.3); GFR 64.4; POTASSIUM 3.2 mmol/L (3.5-5.1)
[2021-03-10 05:56] LABS: BASO % 1 % (0-3); EOS % 0 % (0-3); HEMATOCRIT 31.7 % (39.0-53.0); HEMOGLOBIN 10.4 g/dL (13.0-17.5); LYMPH # 1.2 x10^3/uL (1.0-4.8); LYMPH % 14 % (24-48); MEAN CORPUSCULAR HEMOGLOBIN 29 pg (25-35); MEAN CORPUSCULAR HGB CONC 33 g/dL (31-37); MEAN CORPUSCULAR VOLUME 87 fL (79-100); MONO # 0.8 x10^3/uL (0.0-1.1); MONO % 10 % (0-9); NEUT # 6.4 x10^3/uL (1.8-7.7); NEUT % 75 % (31-73); PLATELET COUNT 297 x10^3/uL (140-400); RED BLOOD COUNT 3.63 x10^6/uL (4.30-5.70); RED CELL DISTRIBUTION WIDTH 15.8 % (11.5-14.5); WHITE BLOOD COUNT 8.5 x10^3/uL (4.0-11.0)
[2021-03-10] MEDS: HEPARIN for IV BOLUS 10,000 UNIT/10 ML VIAL. IV PRN (06:46)
[2021-03-10] MEDS ORDERED: LIDOCAINE 1% PF 2 ML VIAL. ONE (07:56)
[2021-03-10] MEDS ORDERED: IODIXANOL 320 MG/ML 100 ML VIAL. ONE (07:56)
[2021-03-10] MEDS ORDERED: MIDAZOLAM HCL/PF 2 MG/2 ML VIAL. ONE (08:10)
[2021-03-10] MEDS ORDERED: fentaNYL PF VIAL 100 MCG/2 ML VIAL ONE (08:10)
[2021-03-10] MEDS ORDERED: NITROGLYCERIN 200 MCG/2 ML SYRINGE FOR CATH/VASC LAB. ONE (08:11)
[2021-03-10] MEDS ORDERED: HEPARIN for IV BOLUS 10,000 UNIT/10 ML VIAL. ONE (08:11)
[2021-03-10] MEDS ORDERED: VERAPAMIL 5 MG/2 ML VIAL. ONE (08:11)
[2021-03-10] MEDS ORDERED: HEPARIN for IV BOLUS 10,000 UNIT/10 ML VIAL. IART ONE (08:30)
[2021-03-10] MEDS ORDERED: VERAPAMIL 5 MG/2 ML VIAL. IART ONE (08:30)
[2021-03-10] MEDS ORDERED: fentaNYL PF VIAL 100 MCG/2 ML VIAL IV ONE (08:30)
[2021-03-10] MEDS ORDERED: LIDOCAINE 1% PF 2 ML VIAL. INJ ONE (08:30)
[2021-03-10] MEDS ORDERED: MIDAZOLAM HCL/PF 2 MG/2 ML VIAL. IV ONE (08:30)
[2021-03-10] MEDS ORDERED: IODIXANOL 320 MG/ML 100 ML VIAL. IART ONE (08:30)
[2021-03-10] MEDS ORDERED: NITROGLYCERIN 200 MCG/2 ML SYRINGE FOR CATH/VASC LAB. IART ONE (08:30)
--- NOTE | 2021-03-10 09:31 | PDOC ---
MODERATE SEDATION ASSESSMENT RISKS/ALTERNATIVES Risks/Alternatives Risks and alternatives of this type of sedation and procedure discussed with: RISK/ALTERNATIVES: Patient H & P ON CHART H & P H & P on chart and reviewed for co-morbid conditions and appropriate labs. H&P ON CHART: Yes STATUS PREG STATUS ASSESSED: N/A MEDS/ALLERGIES REVIEWED Meds/Allergies Reviewed Medications and Allergies including time and route of recently administered narcotics and sedatives. MEDS/ALLERGIES REVIEWED: Yes ASA RATING ASA RATING: II AIRWAY ASSESSMENT Airway Assessment Airway patency, oral function limitations, presence of caps, crowns, dentures, partials, and ability to extend neck assessed. AIRWAY ASSESSMENT: Yes MALLAMPATI SCORE MALLAMPATI SCORE: II PRE-SEDATION ASSESSMENT PRE-SEDATION ASSESSMENT: Yes ELY TOLEDO MD Mar 10, 2021 09:31
[2021-03-10] MEDS: MEMANTINE 5 MG TABLET. PO SCH ×2 (09:34→20:55)
[2021-03-10] MEDS: DOXYCYCLINE HYCLATE 100 MG TABLET PO SCH ×2 (09:34→20:55)
[2021-03-10] MEDS: PANTOPRAZOLE 40 MG TABLET.DR. PO SCH (09:34)
[2021-03-10] MEDS: CHOLECALCIFEROL (VITAMIN D3) 1,000 UNIT TABLET PO SCH (09:34)
[2021-03-10] MEDS: SENNOSIDES/DOCUSATE 8.6/50MG TABLET. PO SCH ×2 (09:34→20:55)
[2021-03-10] MEDS: MEGESTROL 20 MG TABLET. PO SCH ×2 (09:34→20:56)
[2021-03-10] MEDS: CYANOCOBALAMIN (VITAMIN B-12) 1,000 MCG TABLET. PO SCH (09:34)
[2021-03-10] MEDS: NITROGLYCERIN 0.4MG/HR PATCH. TD SCH (09:37)
[2021-03-10] MEDS: ABIRATERONE ACETATE PO SCH (09:38)
--- NOTE | 2021-03-10 09:43 | CARD ---
MR#: [id number] Date of Study: 03/10/2021 Ordering Physician: ELY TOLEDO, Referring Physician: ELY TOLEDO, Tech: RT Favian(R)() APPROVED REPORT Technologist: RT Favian(R)() Nurse: Alexandrea Zavala RN Procedure(s) performed: Left heart catheterization, selective coronary angiography and left ventricul ography via right transradial approach FLOURO TIME: 5.0 MINUTES DOSE: 76.37 Gycm2 CONTRAST: 93 CC'S VISIPAQUE MODERATE SEDATION: 32 MINUTES HISTORY The patient is a year-old : with a history of . INDICATION The indication(s) include : non-STEMI . [facility] Clinical Frailty Scale [facility] Clinical Frailty Scale: Moderately Frail Heart Failure Heart Failure: No CASE TECHNIQUE IV conscious sedation was used throughout procedure with appropriate monitoring and was performed in the presence of a registered nurse who was an independent trained observer other than the physician p erforming the procedure. During this case, Fluoroscopy and low osmolar contrast were used for imaging . Specimen(s) Removed: No Estimated Blood loss: 15 cc's. PROCEDURE NARRATIVE After explaining the risks, benefits and alternative options, informed consent was obtained from sebastian ent. Patient was brought to the cardiac Lithographic Retoucher Apprentice and right wrist was prepped and draped in the usual fashion after confirming a positive modified Fahad's test. Arterial access was obtained in the righ t radial artery and a 6 Eritrean sheath was inserted. 6 Eritrean Bib catheter was used to perform treva ective angiography of the left and right coronary arteries. 6 [place]rean pigtail catheter was used to pe rform left ventriculography. Patient tolerated the procedure well. Hemostasis was achieved using TR band. There were no immediate complications. The following findings were noted. FINDINGS 1. Hemodynamics: Left ventricular end-diastolic pressure of 12 mmHg. No pullback gradient across th e aortic valve. 2. Left ventriculography: Normal left ventricle systolic function with ejection fraction estimated at 55%. No significant mitral regurgitation seen. 3. Coronary angiography: a. The left main coronary artery arose from the left sinus of Valsalva, gave rise to the left anteri or descending and left circumflex arteries and did not show any significant stenosis. b. The left anterior descending artery did not show any significant stenosis. c. The left circumflex artery showed 100% occlusion in the mid segment of a small to medium caliber obtuse marginal branch. d. The right coronary artery was a large and dominant vessel arising from the right sinus of Valsalv a that showed 30% stenosis in the midsegment. Conclusion 1. 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 No other significant coronary artery stenosis was noted. 2. Normal left ventricle systolic function with ejection fraction estimated at 55%. Recommendations Due to late presentation of non-STEMI (4-6 days), troponin level trending down and the culprit vessel being small to medium caliber obtuse marginal branch, I would recommend medical management. The anna st pain patient is currently describing is very atypical and pleuritic in nature. Signed by : Ely Toledo, Electronically Approved : 03/10/2021 09:43:25
[2021-03-10] MEDS ORDERED: CLOPIDOGREL BISULFATE 75 MG TABLET PO ONE (09:45)
[2021-03-10] MEDS: IV 1/2 NORMAL SALINE 1,000 ML IV SCH ×2 (09:45→23:05)
[2021-03-10] MEDS: METOPROLOL TART IMMED RELEASE 25 MG TABLET. PO SCH ×2 (10:47→20:56)
--- NOTE | 2021-03-10 11:49 | PDOC ---
PROGRESS NOTES Date of Service: DATE: 03/10/21 TIME: 11:49 Subjective Subjective Continues to complain of atypical pleuritic chest pain. Had atrial fib with RVR last night but back in SR Objective Objective Vital Signs Date Time Temp Pulse Resp B/P (MAP) Pulse Ox O2 Delivery O2 Flow Rate FiO2 03/10/21 11:47 93 Nasal Cannula 2.0 03/10/21 11:10 97.9 106 22 97/75 (82) 97.9 Intake and Output 03/10/21 07:00 Intake Total 1650 ml Output Total 1800 ml Balance -150 ml Intake Oral 1650 ml Output Urine Total 1800 ml # Voids 1 Physical Exam Abdomen: Soft Heart: Regular rate Extremities: No edema General: Alert, mild distress HEENT: Atraumatic Lungs: Clear to auscultation Neuro: Normal speech Psych/Mental Status: Mood NL Assessment Assessment 1. Non-STEMI. Cardiac cath showed 100% occlusion of small to medium caliber obtuse marginal branch of LCX. Since this was late presentation, troponins were trending down and his CP was atypical and pleuritic, we will manage this medically. LVEF preserved. Continue ASA/Plavix. CT chest did not show any acute pulmonary embolism. Chest x-ray suggestive of pneumonia. Continue intravenous antibiotics. Continue heparin infusion per protocol. Consider cardiac catheterization tomorrow/Thursday to rule out any significant coronary artery disease. 2. Atrial fibrillation last night, presently back in SR. Stop CZM and start metoprolol. Plan outpatient event monitor recording to guide antiarrhythmic/anticoagulation therapies 3. GERD, Dementia: per IM Plan Plan of Care Problems Medical Problems: (1) ACS (acute coronary syndrome) Status: Acute Comment Review of Relevant I have reviewed the following items lindy (where applicable) has been applied. Labs Laboratory Tests Test 03/09/21 15:00 03/09/21 18:20 03/09/21 21:15 03/10/21 04:55 Heparin Anti-Xa Act, Unfractionated 0.37 IU/mL (0.30-0.70) 0.24 IU/mL (0.30-0.70) < 0.10 IU/mL (0.30-0.70) Troponin I Quantitative 7.231 ng/mL (0.000-0.055) 7.155 ng/mL (0.000-0.055) Test 03/10/21 05:00 White Blood Count 8.5 x10^3/uL (4.0-11.0) Red Blood Count 3.63 x10^6/uL (4.30-5.70) Hemoglobin 10.4 g/dL (13.0-17.5) Hematocrit 31.7 % (39.0-53.0) Mean Corpuscular Volume 87 fL (79-100) Mean Corpuscular Hemoglobin 29 pg (25-35) Mean Corpuscular Hemoglobin Concent 33 g/dL (31-37) Red Cell Distribution Width 15.8 % (11.5-14.5) Platelet Count 297 x10^3/uL (140-400) Neutrophils (%) (Auto) 75 % (31-73) Lymphocytes (%) (Auto) 14 % (24-48) Monocytes (%) (Auto) 10 % (0-9) Eosinophils (%) (Auto) 0 % (0-3) Basophils (%) (Auto) 1 % (0-3) Neutrophils # (Auto) 6.4 x10^3/uL (1.8-7.7) Lymphocytes # (Auto) 1.2 x10^3/uL (1.0-4.8) Monocytes # (Auto) 0.8 x10^3/uL (0.0-1.1) Eosinophils # (Auto) 0.0 x10^3/uL (0.0-0.7) Basophils # (Auto) 0.0 x10^3/uL (0.0-0.2) Sodium Level 140 mmol/L (136-145) Potassium Level 3.2 mmol/L (3.5-5.1) Chloride Level 104 mmol/L (98-107) Carbon Dioxide Level 28 mmol/L (21-32) Anion Gap 8 (6-14) Blood Urea Nitrogen 11 mg/dL (8-26) Creatinine 1.1 mg/dL (0.7-1.3) Estimated GFR (Cockcroft-Gault) 64.4 Glucose Level 130 mg/dL (70-99) Calcium Level 8.4 mg/dL (8.5-10.1) Troponin I Quantitative 6.468 ng/mL (0.000-0.055) Medications Current Medications Ampicillin Sodium/ Sulbactam Sodium 1.5 gm/Sodium Chloride 50 ml @ 100 mls/hr Q6HRS IV Last administered on 03/10/21at 10:48; Start 03/09/21 at 14:00 Aspirin (Ecotrin) 325 mg DAILYWBKFT PO ; Start 03/11/21 at 08:00 Atorvastatin Calcium (Lipitor) 40 mg QHS PO ; Start 03/10/21 at 21:00 Clopidogrel Bisulfate (Plavix) 75 mg DAILYWBKFT PO ; Start 03/11/21 at 08:00 Clopidogrel Bisulfate (Plavix) 300 mg 1X ONCE PO Last administered on 03/10/21at 09:43; Start 03/10/21 at 09:45; Stop 03/10/21 at 09:46; Status DC Digoxin (Lanoxin) 250 mcg 1X ONCE IV Last administered on 03/10/21at 04:51; Start 03/10/21 at 05:00; Stop 03/10/21 at 05:01; Status DC Digoxin (Lanoxin) 500 mcg 1X ONCE IV Last administered on 03/10/21at 03:13; Start 03/10/21 at 03:30; Stop 03/10/21 at 03:31; Status DC Diltiazem HCl 125 mg/Sodium Chloride 125 ml @ 5 mls/hr CONT PRN IV PER PROTOCOL Last administered on 03/10/21at 06:13; Start 03/10/21 at 04:45; Stop 03/10/21 at 09:36; Status DC Doxycycline Hyclate (Vibra-Tab) 100 mg BID PO Last administered on 03/10/21at 09:34; Start 03/09/21 at 13:00 Fentanyl Citrate (Fentanyl 2ml Vial) 100 mcg 1X ONCE IV Last administered on 03/10/21at 08:30; Start 03/10/21 at 08:30; Stop 03/10/21 at 08:31; Status DC Fentanyl Citrate (Fentanyl 2ml Vial) 100 mcg STK-MED ONCE .ROUTE ; Start 03/10/21 at 08:10; Stop 03/10/21 at 08:10; Status DC Heparin Sodium (Porcine) (Heparin Sodium) 2,500 unit 1X ONCE IART Last administered on 03/10/21at 08:30; Start 03/10/21 at 08:30; Stop 03/10/21 at 08:31; Status DC Heparin Sodium (Porcine) (Heparin Sodium) 10,000 unit STK-MED ONCE .ROUTE ; Start 03/10/21 at 08:11; Stop 03/10/21 at 08:11; Status DC Heparin Sodium/ Sodium Chloride 1,000 ml @ As Directed STK-MED ONCE .ROUTE ; Start 03/10/21 at 07:56; Stop 03/10/21 at 07:56; Status DC Heparin Sodium/ Sodium Chloride (HEPARIN for ARTERIAL LINE FLUSH) 1,000 unit 1X ONCE IART Last administered on 03/10/21at 08:30; Start 03/10/21 at 08:30; Stop 03/10/21 at 08:31; Status DC Iodixanol (Visipaque 320) 100 ml 1X ONCE IART Last administered on 03/10/21at 08:30; Start 03/10/21 at 08:30; Stop 03/10/21 at 08:31; Status DC Iodixanol (Visipaque 320) 100 ml STK-MED ONCE .ROUTE ; Start 03/10/21 at 07:56; Stop 03/10/21 at 07:56; Status DC Lidocaine HCl (Xylocaine-Mpf 1% 2ml Vial) 2 ml 1X ONCE INJ Last administered on 03/10/21at 08:30; Start 03/10/21 at 08:30; Stop 03/10/21 at 08:31; Status DC Lidocaine HCl (Xylocaine-Mpf 1% 2ml Vial) 2 ml STK-MED ONCE .ROUTE ; Start 03/10/21 at 07:56; Stop 03/10/21 at 07:56; Status DC Metoprolol Tartrate (Lopressor) 25 mg BID PO Last administered on 03/10/21at 10:47; Start 03/10/21 at 10:30 Midazolam HCl (Versed) 2 mg 1X ONCE IV Last administered on 03/10/21at 08:30; Start 03/10/21 at 08:30; Stop 03/10/21 at 08:31; Status DC Midazolam HCl (Versed) 2 mg STK-MED ONCE .ROUTE ; Start 03/10/21 at 08:10; Stop 03/10/21 at 08:11; Status DC Nitroglycerin (Nitroglycerin) 200 mcg 1X ONCE IART Last administered on 03/10/21at 08:30; Start 03/10/21 at 08:30; Stop 03/10/21 at 08:31; Status DC Nitroglycerin (Nitroglycerin) 200 mcg STK-MED ONCE .ROUTE ; Start 03/10/21 at 08:11; Stop 03/10/21 at 08:11; Status DC Nitroglycerin (Nitrostat) 0.4 mg PRN Q5MIN PRN SL CHEST PAIN Last administered on 03/09/21at 18:04; Start 03/09/21 at 18:00 Nitroglycerin (Nitrostat) 0.4 mg STK-MED ONCE SL ; Start 03/09/21 at 18:02; Stop 03/09/21 at 18:02; Status DC Nitroglycerin/ Dextrose 250 ml @ 1.5 mls/hr CONT PRN IV SEE I/O RECORD Last administered on 03/09/21at 20:52; Start 03/09/21 at 18:30 Senna/Docusate Sodium (Senna Plus) 1 tab BID PO Last administered on 03/10/21at 09:34; Start 03/09/21 at 21:00 Sodium Chloride 1,000 ml @ 75 mls/hr [id number] IV Last administered on 03/10/21at 09:45; Start 03/10/21 at 09:45 Verapamil HCl (Verapamil) 2.5 mg 1X ONCE IART Last administered on 03/10/21at 08:30; Start 03/10/21 at 08:30; Stop 03/10/21 at 08:31; Status DC Verapamil HCl (Verapamil) 5 mg STK-MED ONCE .ROUTE ; Start 03/10/21 at 08:11; Stop 03/10/21 at 08:11; Status DC Vitals/I & O Vital Sign - Last 24 Hours 03/09/21 03/09/21 03/09/21 03/09/21 11:58 12:25 12:25 15:27 Temp 99.8 99.8 Pulse 100 Resp 20 B/P (MAP) 108/68 (81) Pulse Ox 98 98 98 96 O2 Delivery Nasal Cannula O2 Flow Rate 2.0 2.0 2.0 2.0 03/09/21 03/09/21 03/09/21 03/09/21 16:11 16:11 16:43 16:43 Pulse Ox 96 96 96 96 O2 Flow Rate 2.0 2.0 2.0 2.0 03/09/21 03/09/21 03/09/21 03/09/21 18:03 18:04 19:40 20:14 Temp 99.8 99.8 Pulse 100 110 Resp 18 B/P (MAP) 108/68 152/78 (102) Pulse Ox 96 97 O2 Delivery Nasal Cannula Room Air Nasal Cannula O2 Flow Rate 2.0 2.0 03/09/21 03/09/21 03/09/21 03/09/21 20:50 20:51 21:00 21:15 Resp 20 20 B/P (MAP) 158/89 (112) 98/81 (87) O2 Delivery Room Air Room Air 03/09/21 03/09/21 03/09/21 03/09/21 21:30 21:45 22:00 22:30 Pulse 117 Resp 24 B/P (MAP) 119/76 (90) 120/70 (87) 120/77 (91) Pulse Ox 97 O2 Delivery Nasal Cannula O2 Flow Rate 2.0 03/09/21 03/10/21 03/10/21 03/10/21 23:00 00:01 01:00 02:00 B/P (MAP) 129/61 (83) 125/74 (91) 124/76 (92) 144/79 (100) 03/10/21 03/10/21 03/10/21 03/10/21 03:00 03:05 03:13 03:30 Temp 99.3 99.3 Pulse 148 142 165 161 Resp 24 B/P (MAP) 89/64 (72) 116/68 (84) 116/68 116/68 (84) Pulse Ox 90 O2 Delivery Nasal Cannula O2 Flow Rate 2.0 03/10/21 03/10/21 03/10/21 03/10/21 04:00 04:51 05:00 05:15 Pulse 154 160 156 154 B/P (MAP) 110/77 (88) 110/77 106/78 (87) 102/81 (88) 03/10/21 03/10/21 03/10/21 03/10/21 05:30 05:45 06:00 06:15 Pulse 150 150 148 160 B/P (MAP) 109/74 (86) 92/69 (77) 142/71 (94) 120/59 (79) 03/10/21 03/10/21 03/10/21 03/10/21 06:30 06:45 07:00 07:12 Temp 99.0 99.0 Pulse 100 158 158 155 Resp 22 B/P (MAP) 96/67 (77) 119/69 (86) 104/66 (79) 110/53 (72) Pulse Ox 92 O2 Delivery Nasal Cannula O2 Flow Rate 2.0 03/10/21 03/10/21 03/10/21 03/10/21 07:15 08:30 08:30 09:08 Pulse 150 98 95 Resp 18 17 B/P (MAP) 112/73 (86) Pulse Ox 97 96 O2 Delivery Nasal Cannula Nasal Cannula O2 Flow Rate 2.0 2.0 03/10/21 03/10/21 03/10/21 10:47 11:10 11:47 Temp 97.9 97.9 Pulse 78 106 Resp 22 B/P (MAP) 108/65 97/75 (82) Pulse Ox 93 93 O2 Delivery Nasal Cannula Nasal Cannula O2 Flow Rate 2.0 2.0 Intake and Output 03/09/21 03/09/21 03/10/21 15:00 23:00 07:00 Intake Total 300 ml 1200 ml 150 ml Output Total 1800 ml Balance 300 ml -600 ml 150 ml ELY TOLEDO MD Mar 10, 2021 11:49
[2021-03-10] MEDS ORDERED: POTASSIUM CHLORIDE 20 MEQ TABLET.ER. PO ONE (13:00)
--- NOTE | 2021-03-10 13:02 | PDOC ---
[facility] PROGRESS NOTE Date of Service DOS: DATE: 03/10/21 TIME: 13:00 Chief Complaint Chief Complaint Chest pain History of Present Illness History of Present Illness HPI: Patient is an 80-year-old white male was brought into the EMS overnight due to 4-day history of mid substernal chest pain. Says the pain started 4 days ago and at that point as it was not bothering her he just noticed that however last night he noticed it was getting much worse decided present. Describes the pain as more pleuritic than a crushing chest pain denies any recent illnesses. Denies any sort of cardiac history. He does report a history of prostate cancer currently in remission, he does have a lot of back pain from this. On presentation emergency room was found to have elevated troponin and some ST changes on his EKG thus heparin drip started cardiology consulted troponins trended overnight appear to have peaked. Given pleuritic nature of chest pain will perform CTA of the chest. Continue heparin drip. 03/10 Patient evaluated and examined at bedside. CTA performed yesterday negative for PE. Discussed with cardiology team today and agree that his chest pain sounds much more like pleurisy. Either way cardiology planning for cath today. Patient agreeable. Continue antibiotics. Will follow up after cath. Vitals/I&O Vitals/I&O: Vital Signs Date Time Temp Pulse Resp B/P (MAP) Pulse Ox O2 Delivery O2 Flow Rate FiO2 03/10/21 11:47 93 Nasal Cannula 2.0 03/10/21 11:10 97.9 106 22 97/75 (82) 97.9 I & O 03/09/21 03/09/21 03/10/21 15:00 23:00 07:00 Intake Total 300 ml 1200 ml 150 ml Output Total 1800 ml Balance 300 ml -600 ml 150 ml Physical Exam General: Alert, mild distress Heart: Regular rate Abdomen: Soft Extremities: No edema Labs Labs: Laboratory Tests Test 03/09/21 15:00 03/09/21 18:20 03/09/21 21:15 03/10/21 04:55 Heparin Anti-Xa Act, Unfractionated 0.37 IU/mL (0.30-0.70) 0.24 IU/mL (0.30-0.70) < 0.10 IU/mL (0.30-0.70) Troponin I Quantitative 7.231 ng/mL (0.000-0.055) 7.155 ng/mL (0.000-0.055) Test 03/10/21 05:00 White Blood Count 8.5 x10^3/uL (4.0-11.0) Red Blood Count 3.63 x10^6/uL (4.30-5.70) Hemoglobin 10.4 g/dL (13.0-17.5) Hematocrit 31.7 % (39.0-53.0) Mean Corpuscular Volume 87 fL (79-100) Mean Corpuscular Hemoglobin 29 pg (25-35) Mean Corpuscular Hemoglobin Concent 33 g/dL (31-37) Red Cell Distribution Width 15.8 % (11.5-14.5) Platelet Count 297 x10^3/uL (140-400) Neutrophils (%) (Auto) 75 % (31-73) Lymphocytes (%) (Auto) 14 % (24-48) Monocytes (%) (Auto) 10 % (0-9) Eosinophils (%) (Auto) 0 % (0-3) Basophils (%) (Auto) 1 % (0-3) Neutrophils # (Auto) 6.4 x10^3/uL (1.8-7.7) Lymphocytes # (Auto) 1.2 x10^3/uL (1.0-4.8) Monocytes # (Auto) 0.8 x10^3/uL (0.0-1.1) Eosinophils # (Auto) 0.0 x10^3/uL (0.0-0.7) Basophils # (Auto) 0.0 x10^3/uL (0.0-0.2) Sodium Level 140 mmol/L (136-145) Potassium Level 3.2 mmol/L (3.5-5.1) Chloride Level 104 mmol/L (98-107) Carbon Dioxide Level 28 mmol/L (21-32) Anion Gap 8 (6-14) Blood Urea Nitrogen 11 mg/dL (8-26) Creatinine 1.1 mg/dL (0.7-1.3) Estimated GFR (Cockcroft-Gault) 64.4 Glucose Level 130 mg/dL (70-99) Calcium Level 8.4 mg/dL (8.5-10.1) Troponin I Quantitative 6.468 ng/mL (0.000-0.055) Assessment and Plan Assessmemt and Plan Problems Medical Problems: (1) ACS (acute coronary syndrome) Status: Acute ACS, history metastatic prostate cancer -Admitted after 4-day history of chest pain -EKG changes in emergency room, significantly elevated troponin. Cardiology consulted -Continue heparin drip. Received 325 aspirin in ED last night -Discussed case with Dr. Machado --> planning for cardiac catheterization today -CT PE ordered given patient's pleuritic nature of chest pain -Home meds resumed as indicated -Heparin drip starting as DVT prophylaxis -Cardiac diet Comment Review of Relevant I have reviewed the following items lindy (where applicable) has been applied. Medications: Current Medications Medications (Trade) Dose Ordered Sig/Juan Route PRN Reason Start Time Stop Time Status Last Admin Dose Admin Senna/Docusate Sodium (Senna Plus) 1 tab BID PO 03/09/21 21:00 03/10/21 09:34 Ampicillin Sodium/ Sulbactam Sodium 1.5 gm/Sodium Chloride 50 ml @ 100 mls/hr Q6HRS IV 03/09/21 14:00 03/10/21 10:48 Nitroglycerin (Nitrostat) 0.4 mg PRN Q5MIN PRN SL CHEST PAIN 03/09/21 18:00 03/09/21 18:04 Nitroglycerin/ Dextrose 250 ml @ 1.5 mls/hr CONT PRN IV SEE I/O RECORD 03/09/21 18:30 03/09/21 20:52 Digoxin (Lanoxin) 500 mcg 1X ONCE IV 03/10/21 03:30 03/10/21 03:31 DC 03/10/21 03:13 Digoxin (Lanoxin) 250 mcg 1X ONCE IV 03/10/21 05:00 03/10/21 05:01 DC 03/10/21 04:51 Diltiazem HCl 125 mg/Sodium Chloride 125 ml @ 5 mls/hr CONT PRN IV PER PROTOCOL 03/10/21 04:45 03/10/21 09:36 DC 03/10/21 06:13 Nitroglycerin (Nitroglycerin) 200 mcg 1X ONCE IART 03/10/21 08:30 03/10/21 08:31 DC 03/10/21 08:30 Verapamil HCl (Verapamil) 2.5 mg 1X ONCE IART 03/10/21 08:30 03/10/21 08:31 DC 03/10/21 08:30 Heparin Sodium (Porcine) (Heparin Sodium) 2,500 unit 1X ONCE IART 03/10/21 08:30 03/10/21 08:31 DC 03/10/21 08:30 Heparin Sodium/ Sodium Chloride (HEPARIN for ARTERIAL LINE FLUSH) 1,000 unit 1X ONCE IART 03/10/21 08:30 03/10/21 08:31 DC 03/10/21 08:30 Midazolam HCl (Versed) 2 mg 1X ONCE IV 03/10/21 08:30 03/10/21 08:31 DC 03/10/21 08:30 Fentanyl Citrate (Fentanyl 2ml Vial) 100 mcg 1X ONCE IV 03/10/21 08:30 03/10/21 08:31 DC 03/10/21 08:30 Iodixanol (Visipaque 320) 100 ml 1X ONCE IART 03/10/21 08:30 03/10/21 08:31 DC 03/10/21 08:30 Lidocaine HCl (Xylocaine-Mpf 1% 2ml Vial) 2 ml 1X ONCE INJ 03/10/21 08:30 03/10/21 08:31 DC 03/10/21 08:30 Sodium Chloride 1,000 ml @ 75 mls/hr [id number] IV 03/10/21 09:45 03/10/21 09:45 Metoprolol Tartrate (Lopressor) 25 mg BID PO 03/10/21 10:30 03/10/21 10:47 Clopidogrel Bisulfate (Plavix) 300 mg 1X ONCE PO 03/10/21 09:45 03/10/21 09:46 DC 03/10/21 09:43 Justifications for Admission Other Justification ZENIA MIGUEL MD Mar 10, 2021 13:02
[2021-03-10] MEDS: ACETAMINOPHEN 325 MG TABLET. PO PRN (20:55)
[2021-03-10] MEDS: ATORVASTATIN CALCIUM 40 MG TABLET. PO SCH (20:55)
[2021-03-10] MEDS: ZOLPIDEM 5 MG TABLET. PO PRN (20:55)
[2021-03-11] MEDS: AMPICILLIN/SULBACTAM 1.5 GM in IV NORMAL SALINE 50ML 50 ML IV SCH ×3 (01:13→11:41)
[2021-03-11 03:20] VITALS: BP 126/72
[2021-03-11 07:00] VITALS: BP 133/68
[2021-03-11] MEDS: PANTOPRAZOLE 40 MG TABLET.DR. PO SCH (07:26)
[2021-03-11] MEDS: ABIRATERONE ACETATE PO SCH (07:28)
[2021-03-11] MEDS ORDERED: ASPIRIN ENTERIC COATED 325 MG TABLET.DR. PO SCH (08:00)
[2021-03-11] MEDS: CYANOCOBALAMIN (VITAMIN B-12) 1,000 MCG TABLET. PO SCH (08:44)
[2021-03-11] MEDS: CHOLECALCIFEROL (VITAMIN D3) 1,000 UNIT TABLET PO SCH (08:44)
[2021-03-11] MEDS: MEMANTINE 5 MG TABLET. PO SCH ×2 (08:44→21:52)
[2021-03-11] MEDS: NITROGLYCERIN 0.4MG/HR PATCH. TD SCH (08:44)
[2021-03-11] MEDS: DOXYCYCLINE HYCLATE 100 MG TABLET PO SCH ×2 (08:45→21:52)
[2021-03-11] MEDS: CLOPIDOGREL BISULFATE 75 MG TABLET PO SCH (08:45)
[2021-03-11] MEDS: MEGESTROL 20 MG TABLET. PO SCH ×2 (08:51→21:52)
[2021-03-11] MEDS: SENNOSIDES/DOCUSATE 8.6/50MG TABLET. PO SCH ×2 (08:51→21:52)
[2021-03-11] MEDS: METOPROLOL TART IMMED RELEASE 25 MG TABLET. PO SCH (09:00)
--- NOTE | 2021-03-11 10:04 | PDOC ---
HANS MOLINA [employer] 03/11/21 1004: CARDIO Progress Notes Date and Time Date of Service 03/11/21 Time of Evaluation 1000 Subjective Subjective: Other (s/o bilateral LE weakness,pain wtih R > L) Vitals Vitals Vital Signs Date Time Temp Pulse Resp B/P (MAP) Pulse Ox O2 Delivery O2 Flow Rate FiO2 03/11/21 07:00 98.1 109 20 133/68 (89) 96 Nasal Cannula 2.0 98.1 Weight Weight [ ] Input and Output Intake and Output Intake and Output 03/11/21 07:00 Intake Total 1150 ml Output Total 700 ml Balance 450 ml Intake Oral 1100 ml IV Total 50 ml Output Urine Total 700 ml # Voids 1 Physical Exam HEENT: Neck Supple W Full Motion Chest: Symmetric LUNGS: Clear to Auscultation Heart: RRR Abdomen: Soft N/T Extremities: No Edema, Other (right radial arteriotomy site soft, clean, and dry. no hematoma present. Neurovascualr status intact ) Neurology: alert, oriented, follow commands Assessment Assessment 1. Non-STEMI; trop peak 9 2. CAD; LHC showed 100% occlusion of small to medium caliber OM branch of LCX. Managed medically as this was late presentation, troponins were trending down, and his CP was atypical. LVEF preserved. CT chest negative for acute PE 3. PAFIB; having intermittent RVR. Also periods of sinus bradycardia and a pause of 4 seconds overnight on metoprolol. presently back in SR 4. Hyperlipidemia; statin 5. GERD 6. LE pain, weakness with h/o spinal stenosis. as per IM 7. Hypokalemia; replaced 8. Dyspnea with probable PNA. S/p recent COVID infection (01/19) Recommendations Discontinue metoprolol. Avoid AV landon blocking agents Start Amiodarone per protocol for rhythm maintenance Will start Eliquis for stroke prophylaxis Secondary prevention DAPT with ASA/Plavix. (ASA x 30 days then discontinue as patient is on Eliquis) Outpatient event monitor to guide therapy, assess for tachybrady Supportive care Cardiac rehab referral Justicifation of Admission Dx: Justifications for Admission: Justification of Admission Dx: Yes CHF: Cardiac Arrhythmias HI: Acute NSTEMI ELY TOLEDO MD 03/11/212: CARDIO Progress Notes Assessment Assessment Patient seen and examined. Agree with FOOD DEMONSTRATOR's assessment and plan. Patient continues to complain of atypical pleuritic CP Cardiac cath and echo results noted above - cont medical managment He continues to have AFib/flutter paroxysms on tele and some significant pauses suspicious for SSS Start amiodarone infusion per protocol for rhythm maintenance. Stop BB/CCB and start eliquis for stroke prophylaxis If he continues to have significant pauses, we will consider PPM implantation HANS MOLINA APRN Mar 11, 2021 10:04 ELY TOLEDO MD Mar 11, 2021 21:12
[2021-03-11 10:49] VITALS: BP 134/80
[2021-03-11] MEDS ORDERED: AMIODARONE 150 MG in IV DEXTROSE 5% 100ML 100 ML IV ONE (11:30)
[2021-03-11] MEDS ORDERED: ANTI-COAG MONITOR BY PHARMACY. MC PRN (11:45)
[2021-03-11] MEDS: IV 1/2 NORMAL SALINE 1,000 ML IV SCH (12:25)
[2021-03-11] MEDS: APIXABAN 5 MG TABLET. PO SCH ×2 (13:08→21:52)
[2021-03-11] MEDS: AMIODARONE 450 MG in IV DEXTROSE 5% 250 ML IV PRN ×2 (13:10→22:44)
[2021-03-11] MEDS: ACETAMINOPHEN 325 MG TABLET. PO PRN ×2 (14:16→23:30)
--- NOTE | 2021-03-11 14:49 | PDOC ---
[facility] PROGRESS NOTE Date of Service DOS: DATE: 03/11/21 TIME: 14:45 Chief Complaint Chief Complaint NSTEMI Atypical chest pain Community-acquired pneumonia, possibly gram-negative or possibly gram-positive organism History of Present Illness History of Present Illness HPI: Patient is an 80-year-old white male was brought into the EMS overnight due to 4-day history of mid substernal chest pain. Says the pain started 4 days ago and at that point as it was not bothering her he just noticed that however last night he noticed it was getting much worse decided present. Describes the pain as more pleuritic than a crushing chest pain denies any recent illnesses. Denies any sort of cardiac history. He does report a history of prostate cancer currently in remission, he does have a lot of back pain from this. On presentation emergency room was found to have elevated troponin and some ST changes on his EKG thus heparin drip started cardiology consulted troponins trended overnight appear to have peaked. Given pleuritic nature of chest pain will perform CTA of the chest. Continue heparin drip. 03/10 Patient evaluated and examined at bedside. CTA performed yesterday negative for PE. Discussed with cardiology team today and agree that his chest pain sounds much more like pleurisy. Either way cardiology planning for cath today. Patient agreeable. Continue antibiotics. Will follow up after cath. 03/11: Patient had left heart cath yesterday that showed 100% occlusion of a small to medium caliber obtuse marginal branch of left circumflex artery, normal left ventricle systolic function with ejection fraction estimated at 55%. Due to his late presentation of NSTEMI and culprit vessel being small to medium caliber obtuse marginal branch, he was recommended medical management. Will discontinue IV Unasyn and place on Augmentin. Obtain morning procalcitonin. Continue Eliquis and IV amiodarone, per cardiology. Patient with complaint of right lower extremity pain and weakness today. Reports pain in his right knee and right ankle with movement; also notes pain in his lumbar spine when he lays supine. He does admit to history of lumbar spinal due to his history of lumbar spinal stenosis, denies any prior history of similar right knee or right ankle pain. Febrile this afternoon with T-max 101.5 F. Given history of lumbar spinal stenosis, will obtain CT lumbar spine. Will obtain influenza A & B, blood cultures. Vitals/I&O Vitals/I&O: Vital Signs Date Time Temp Pulse Resp B/P (MAP) Pulse Ox O2 Delivery O2 Flow Rate FiO2 03/11/21 13:08 96 134/80 03/11/21 10:49 99.9 22 98 Nasal Cannula 2.0 99.9 I & O 03/10/21 03/10/21 03/11/21 15:00 23:00 07:00 Intake Total 450 ml 600 ml 100 ml Output Total 300 ml 400 ml Balance 150 ml 200 ml 100 ml Physical Exam General: Alert, No acute distress Heart: Regular rate Lungs: Crackles Abdomen: Soft Extremities: No edema Skin: No rashes, No breakdown Assessment and Plan Assessmemt and Plan Problems Medical Problems: (1) ACS (acute coronary syndrome) Status: Acute Comment Review of Relevant I have reviewed the following items lindy (where applicable) has been applied. Medications: Current Medications Medications (Trade) Dose Ordered Sig/Juan Route PRN Reason Start Time Stop Time Status Last Admin Dose Admin Aspirin (Ecotrin) 325 mg DAILYWBKFT PO 03/11/21 08:00 03/11/21 11:24 DC 03/11/21 08:44 Clopidogrel Bisulfate (Plavix) 75 mg DAILYWBKFT PO 03/11/21 08:00 03/11/21 08:45 Atorvastatin Calcium (Lipitor) 40 mg QHS PO 03/10/21 21:00 03/10/21 20:55 Amiodarone HCl 150 mg/Dextrose 103 ml @ 600 mls/hr 1X ONCE IV 03/11/21 11:30 03/11/21 11:40 DC 03/11/21 13:08 Amiodarone HCl 450 mg/Dextrose 259 ml @ 0 mls/hr CONT PRN IV SEE I/O RECORD 03/11/21 11:30 03/12/21 11:29 03/11/21 13:10 Apixaban (Eliquis) 5 mg BID PO 03/11/21 12:00 03/11/21 13:08 Justifications for Admission Other Justification TEOFILO TOUSSAINT MD Mar 11, 2021 14:49
[2021-03-11 14:50] VITALS: BP 137/76
--- NOTE | 2021-03-11 15:22 | NUR ---
SS following for discharge planning. SS reviewed pt chart and discussed with pt RN. Pt is from home with spouse and is currently requiring oxygen at two liters nasal canula. COVID19 negative. Pt has no home oxygen. Pt had heart cath on 03/10/2021. Pt on PO Augmentin and Amiodarone drip. PT/OT ordered. SS will continue to follow for discharge planning.
[2021-03-11] MEDS ORDERED: POTASSIUM CHLORIDE 20 MEQ TABLET.ER. PO ONE (17:00)
--- NOTE | 2021-03-11 17:23 | CARD ---
MR#: [id number] Date of Study: 03/11/2021 Ordering Physician: ELY MACHADO, Referring Physician: ELY MACHADO, Tech: Irene Gonzales [facility] APPROVED REPORT EXAM: Two-dimensional and M-mode echocardiogram with Doppler and color Doppler. Other Information Technically limited study due to INDICATION Non STEMI Elevated Troponin 2D DIMENSIONS Left Atrium(2D)2.9 (1.6-4.0cm)IVSd1.2 (0.7-1.1cm) Aortic Root(2D)3.0 (2.0-3.7cm)LVDd4.7 (3.9-5.9cm) LVOT Diameter2.2 (1.8-2.4cm)PWd1.0 (0.7-1.1cm) LVDs3.4 (2.5-4.0cm)FS (%) 27.4 % SV53.8 mlLVEF(%)53.3 (>50%) Aortic Valve AoV Peak Moisés.172.9cm/sAoV VTI26.7cm AO Peak GR.12.0mmHgLVOT VTI 20.74cm AO Mean GR.7mmHg Mitral Valve MV E Csbbnlds57.9cm/sMV E Peak Gr.3mmHg MV DECEL ANIB555csWK A Jxgivxlq96.2cm/s MV E Mean Gr.2mmHgE/A Ratio1.0 TDI Lateral E' P. V10.81cm/sMedial E' P. V13.26cm/s E/Lateral E'8.0E/Medial E'6.6 Tricuspid Valve TR P. Qkklbxki454zi/sRAP [id number] TR Peak Gr.40soQjAWPD92kwAk Pulmonary Vein S1 Fqevcgyr74.2cm/sS2 Uvjcglpk83.55cm/s D2 Woxodpfw65.5cm/sPVa ihwwtnle880hwhy LEFT VENTRICLE The left ventricle is normal size. There is borderline to mild concentric left ventricular hypertroph y. Posterobasal wall hypokinesis. The Ejection Fraction is 55-60%. Transmitral Doppler flow pattern i s Grade II-pseudonormal filling dynamics. RIGHT VENTRICLE The right ventricle is normal size. There is normal right ventricular wall thickness. The right ventr icular systolic function is normal. ATRIA The left atrium size is normal. The right atrium size is normal. The interatrial septum is intact wit h no evidence for an atrial septal defect or patent foramen ovale as noted on 2-D or Doppler imaging. AORTIC VALVE The aortic valve is not well visualized. Doppler and Color Flow revealed no significant aortic regurg itation. Calculated aortic valve area is 2.55 cm2 with maximum pressure gradient of 17 mmHg and mean pressure gradient of 8 mmHg. MITRAL VALVE The mitral valve is normal in structure and function. There is no evidence of mitral valve prolapse. There is no mitral valve stenosis. Doppler and Color Flow revealed no mitral valve regurgitation note d. TRICUSPID VALVE The tricuspid valve is normal in structure and function. Doppler and Color Flow revealed trace tricus pid regurgitation with an estimated PAP of 51 mmHg. There is no tricuspid valve stenosis. PULMONIC VALVE The pulmonic valve is not well visualized. GREAT VESSELS The aortic root is normal in size. The ascending aorta is normal in size. The IVC is dilated and areli apses <50% with inspiration. PERICARDIAL EFFUSION There is a trace pericardial effusion. Critical Notification Critical Value: No <Conclusion> Posterobasal wall hypokinesis. The Ejection Fraction is 55-60%. Trace tricuspid regurgitation with an estimated PAP of 51 mmHg. There is a trace pericardial effusion. Signed by : Ely Machado, Electronically Approved : 03/11/2021 17:23:09
[2021-03-11 18:21] LABS: INFLUENZA A PATIENT NEGATIVE (NEGATIVE); INFLUENZA B PATIENT NEGATIVE (NEGATIVE)
[2021-03-11 19:40] VITALS: BP 142/71
[2021-03-11] MEDS ORDERED: AMOXICILLIN/K CLAV 875/125MG TABLET. PO SCH (21:00)
[2021-03-11] MEDS: ATORVASTATIN CALCIUM 40 MG TABLET. PO SCH (21:52)
[2021-03-11 23:15] VITALS: BP 93/64
[2021-03-12] MEDS: IV 1/2 NORMAL SALINE 1,000 ML IV SCH ×3 (01:45→23:54)
[2021-03-12 03:25] VITALS: BP 118/60
[2021-03-12] MEDS: PANTOPRAZOLE 40 MG TABLET.DR. PO SCH (06:13)
[2021-03-12] MEDS: ABIRATERONE ACETATE PO SCH (06:14)
[2021-03-12] MEDS ORDERED: PIP/TAZO PER PHARMACY MC PRN (06:45)
--- NOTE | 2021-03-12 06:50 | PDOC ---
[employer] PROGRESS NOTE Date of Service DOS: DATE: 03/12/21 TIME: 06:47 Chief Complaint Chief Complaint NSTEMI Atypical chest pain Community-acquired pneumonia, possibly gram-negative or possibly gram-positive organism History of Present Illness History of Present Illness HPI: Patient is an 80-year-old white male was brought into the EMS overnight due to 4-day history of mid substernal chest pain. Says the pain started 4 days ago and at that point as it was not bothering her he just noticed that however last night he noticed it was getting much worse decided present. Describes the pain as more pleuritic than a crushing chest pain denies any recent illnesses. Denies any sort of cardiac history. He does report a history of prostate cancer currently in remission, he does have a lot of back pain from this. On presentation emergency room was found to have elevated troponin and some ST changes on his EKG thus heparin drip started cardiology consulted troponins trended overnight appear to have peaked. Given pleuritic nature of chest pain will perform CTA of the chest. Continue heparin drip. 03/10 Patient evaluated and examined at bedside. CTA performed yesterday negative for PE. Discussed with cardiology team today and agree that his chest pain sounds much more like pleurisy. Either way cardiology planning for cath today. Patient agreeable. Continue antibiotics. Will follow up after cath. 03/11: Patient had left heart cath yesterday that showed 100% occlusion of a small to medium caliber obtuse marginal branch of left circumflex artery, normal left ventricle systolic function with ejection fraction estimated at 55%. Due to his late presentation of NSTEMI and culprit vessel being small to medium caliber obtuse marginal branch, he was recommended medical management. Will discontinue IV Unasyn and place on Augmentin. Obtain morning procalcitonin. Continue Eliquis and IV amiodarone, per cardiology. Patient with complaint of right lower extremity pain and weakness today. Reports pain in his right knee and right ankle with movement; also notes pain in his lumbar spine when he lays supine. He does admit to history of lumbar spinal due to his history of lumbar spinal stenosis, denies any prior history of similar right knee or right ankle pain. Febrile this afternoon with T-max 101.5 F. Given history of lumbar spinal stenosis, will obtain CT lumbar spine. Will obtain influenza A & B, blood cultures. 03/12: Febrile overnight, T-max 101.7F. Given persistent fever will repeat COVID-19 testing and broaden antibiotic coverage with Zosyn; continue doxycycline to cover for atypical organisms. Influenza A&B negative; UA, MRSA PCR, and blood cultures pending, although patient has being on antibiotics since 03/09. Will obtain right knee and right ankle x-ray, as well as CT lumbar spine today. Per cardiology, continue amiodarone infusion for A. fib/flutter paroxysms; stop beta-evy due to significant pauses and concern for SSS. Continue Eliquis for stroke prophylaxis. Hypokalemia and hypomagnesemia noted today, will replace. Is curious why he has not been getting his home prednisone; he takes for his back pain related to his history of prostate cancer. Resume home prednisone. Vitals/I&O Vitals/I&O: Vital Signs Date Time Temp Pulse Resp B/P (MAP) Pulse Ox O2 Delivery O2 Flow Rate FiO2 03/12/21 03:25 98.8 80 20 118/60 (79) 97 Nasal Cannula 2.0 98.8 I & O 03/11/21 03/11/21 03/12/21 15:00 23:00 07:00 Intake Total 175 ml 360 ml 400 ml Output Total 800 ml 200 ml Balance 175 ml -440 ml 200 ml Physical Exam General: Alert, Oriented X3, Cooperative, No acute distress Heart: Regular rate Lungs: Crackles Abdomen: Soft Extremities: No edema Skin: No rashes, No breakdown Labs Labs: Laboratory Tests Test 03/11/21 17:40 Influenza Type A Antigen Negative (NEGATIVE) Influenza Type B Antigen Negative (NEGATIVE) Assessment and Plan Assessmemt and Plan Problems Medical Problems: (1) ACS (acute coronary syndrome) Status: Acute Comment Review of Relevant I have reviewed the following items lindy (where applicable) has been applied. Medications: Current Medications Medications (Trade) Dose Ordered Sig/Juan Route PRN Reason Start Time Stop Time Status Last Admin Dose Admin Aspirin (Ecotrin) 325 mg DAILYWBKFT PO 03/11/21 08:00 03/11/21 11:24 DC 03/11/21 08:44 Clopidogrel Bisulfate (Plavix) 75 mg DAILYWBKFT PO 03/11/21 08:00 03/11/21 08:45 Amiodarone HCl 150 mg/Dextrose 103 ml @ 600 mls/hr 1X ONCE IV 03/11/21 11:30 03/11/21 11:40 DC 03/11/21 13:08 Amiodarone HCl 450 mg/Dextrose 259 ml @ 0 mls/hr CONT PRN IV SEE I/O RECORD 03/11/21 11:30 03/12/21 11:29 03/11/21 22:44 Apixaban (Eliquis) 5 mg BID PO 03/11/21 12:00 03/11/21 21:52 Amoxicillin/ Clavulanate Potassium (Augmentin 875/ 125mg) 1 tab BID PO 03/11/21 21:00 03/16/21 20:59 03/11/21 21:52 Justifications for Admission Other Justification TEOFILO TOUSSAINT MD Mar 12, 2021 06:50
[2021-03-12 07:00] VITALS: BP 107/74
[2021-03-12 07:56] LABS: BASO % 0 % (0-3); EOS % 0 % (0-3); HEMATOCRIT 28.5 % (39.0-53.0); HEMOGLOBIN 9.5 g/dL (13.0-17.5); LYMPH # 0.7 x10^3/uL (1.0-4.8); LYMPH % 7 % (24-48); MEAN CORPUSCULAR HEMOGLOBIN 29 pg (25-35); MEAN CORPUSCULAR HGB CONC 33 g/dL (31-37); MEAN CORPUSCULAR VOLUME 87 fL (79-100); MONO # 0.7 x10^3/uL (0.0-1.1); MONO % 8 % (0-9); NEUT # 7.5 x10^3/uL (1.8-7.7); NEUT % 84 % (31-73); PLATELET COUNT 328 x10^3/uL (140-400); RED BLOOD COUNT 3.28 x10^6/uL (4.30-5.70); RED CELL DISTRIBUTION WIDTH 15.2 % (11.5-14.5); WHITE BLOOD COUNT 8.9 x10^3/uL (4.0-11.0)
[2021-03-12 08:55] LABS: CALCIUM 7.7 mg/dL (8.5-10.1); GFR 71.9; MAGNESIUM 1.6 mg/dL (1.8-2.4)
[2021-03-12] MEDS: SENNOSIDES/DOCUSATE 8.6/50MG TABLET. PO SCH ×3 (09:00→20:28)
[2021-03-12 09:02] LABS: POTASSIUM 2.8 mmol/L (3.5-5.1)
--- NOTE | 2021-03-12 09:24 | RAD ---
EXAM: Right ankle, 2 views. HISTORY: Pain. COMPARISON: None. FINDINGS: 2 views of the right ankle are obtained. There is diffuse soft tissue swelling. There are c orticated ossicles inferior to the medial and lateral malleolus, likely due to the sequela of remote injury. The ankle mortise is intact. There is no osteochondral lesion. There is a small amount calcif ication along the plantar fascia. There are vascular calcifications. IMPRESSION: 1. Soft tissue edema. 2. Suspected tiny chronic avulsion fracture fragment inferior to the medial and lateral malleoli and small amount calcification along the plantar fascia suggesting plantar fasciitis. Electronically signed by: Rajwinder Courtney MD (03/12/2021 9:21 AM) [facility]
[2021-03-12] MEDS ORDERED: POTASSIUM CHLORIDE 20 MEQ TABLET.ER. PO ONE (09:30)
[2021-03-12] MEDS: PIPERACILLIN/TAZOBACTAM 4.5 GM in IV NORMAL SALINE 100ML 100 ML IV SCH ×4 (09:36→23:53)
[2021-03-12] MEDS: NITROGLYCERIN 0.4MG/HR PATCH. TD SCH (09:36)
[2021-03-12] MEDS: APIXABAN 5 MG TABLET. PO SCH ×2 (09:37→20:28)
[2021-03-12] MEDS: CYANOCOBALAMIN (VITAMIN B-12) 1,000 MCG TABLET. PO SCH (09:37)
[2021-03-12] MEDS: MEGESTROL 20 MG TABLET. PO SCH ×2 (09:38→20:27)
[2021-03-12] MEDS: DOXYCYCLINE HYCLATE 100 MG TABLET PO SCH ×2 (09:38→20:28)
[2021-03-12] MEDS: CHOLECALCIFEROL (VITAMIN D3) 1,000 UNIT TABLET PO SCH (09:38)
[2021-03-12] MEDS: CLOPIDOGREL BISULFATE 75 MG TABLET PO SCH (09:38)
[2021-03-12] MEDS: MEMANTINE 5 MG TABLET. PO SCH ×2 (09:38→20:28)
[2021-03-12] MEDS ORDERED: MAGNESIUM SULFATE 1GM 100 ML IV ONE (10:00)
[2021-03-12] MEDS ORDERED: METOPROLOL IV PUSH 5 MG/5 ML VIAL. IVP ONE (11:00)
--- NOTE | 2021-03-12 11:08 | RAD ---
EXAM: AP and lateral views of the right knee. DATE: 03/12/2021 8:53 AM INDICATION: Reason: Nontraumatic knee pain / Spl. Instructions: / History: COMPARISON: No Prior FINDINGS: No acute fracture or dislocation. Moderate joint effusion. Moderate medial compartment joint space na rrowing with tricompartmental osteophytes. Chondrocalcinosis. Atherosclerotic vascular calcifications are seen. Small joint body in the suprapatellar recess. Decreased bone mineral density. IMPRESSION: 1. No acute fracture or dislocation. 2. Moderate right knee joint effusion. 3. Severe right knee joint osteoarthritis. Chondrocalcinosis suggests component of CPPD arthropathy. Electronically signed by: Bigg Lowe MD (03/12/2021 11:05 AM) [id number]
[2021-03-12 11:11] VITALS: BP 115/79
--- NOTE | 2021-03-12 11:48 | PDOC ---
HANS MOLINA LEGAL RESEARCH ANALYST 03/12/21 1148: CARDIO Progress Notes Date and Time Date of Service 03/12/21 Time of Evaluation 1130 Subjective Subjective: No Chest Pain, No shortness of breath, Other (c/o right ankle pain ) Vitals Vitals Vital Signs Date Time Temp Pulse Resp B/P (MAP) Pulse Ox O2 Delivery O2 Flow Rate FiO2 03/12/21 11:12 140 115/79 03/12/21 11:11 101.3 20 97 Nasal Cannula 2.0 101.3 Weight Weight [ ] Input and Output Intake and Output Intake and Output 03/12/21 07:00 Intake Total 935 ml Output Total 1000 ml Balance -65 ml Intake Oral 935 ml Output Urine Total 1000 ml # Voids 1 Laboratory Labs Laboratory Tests Test 03/11/21 17:40 03/12/21 06:55 03/12/21 10:20 Influenza Type A Antigen Negative (NEGATIVE) Influenza Type B Antigen Negative (NEGATIVE) White Blood Count 8.9 x10^3/uL (4.0-11.0) Red Blood Count 3.28 x10^6/uL (4.30-5.70) Hemoglobin 9.5 g/dL (13.0-17.5) Hematocrit 28.5 % (39.0-53.0) Mean Corpuscular Volume 87 fL (79-100) Mean Corpuscular Hemoglobin 29 pg (25-35) Mean Corpuscular Hemoglobin Concent 33 g/dL (31-37) Red Cell Distribution Width 15.2 % (11.5-14.5) Platelet Count 328 x10^3/uL (140-400) Neutrophils (%) (Auto) 84 % (31-73) Lymphocytes (%) (Auto) 7 % (24-48) Monocytes (%) (Auto) 8 % (0-9) Eosinophils (%) (Auto) 0 % (0-3) Basophils (%) (Auto) 0 % (0-3) Neutrophils # (Auto) 7.5 x10^3/uL (1.8-7.7) Lymphocytes # (Auto) 0.7 x10^3/uL (1.0-4.8) Monocytes # (Auto) 0.7 x10^3/uL (0.0-1.1) Eosinophils # (Auto) 0.0 x10^3/uL (0.0-0.7) Basophils # (Auto) 0.0 x10^3/uL (0.0-0.2) Sodium Level 137 mmol/L (136-145) Potassium Level 2.8 mmol/L (3.5-5.1) Chloride Level 101 mmol/L (98-107) Carbon Dioxide Level 24 mmol/L (21-32) Anion Gap 12 (6-14) Blood Urea Nitrogen 6 mg/dL (8-26) Creatinine 1.0 mg/dL (0.7-1.3) Estimated GFR (Cockcroft-Gault) 71.9 Glucose Level 153 mg/dL (70-99) Calcium Level 7.7 mg/dL (8.5-10.1) Magnesium Level 1.6 mg/dL (1.8-2.4) Procalcitonin 0.22 ng/mL (0.00-0.10) Thyroid Stimulating Hormone (TSH) 0.513 uIU/mL (0.358-3.74) SARS-CoV-2 Antigen (Rapid) Negative (NEGATIVE) Physical Exam HEENT: Neck Supple W Full Motion Chest: Symmetric LUNGS: Clear to Auscultation Heart: RRR Abdomen: Soft N/T Extremities: No Edema, Other (right radial arteriotomy site soft, clean, and dry. no hematoma present. Neurovascualr status intact ) Neurology: alert, oriented, follow commands, other (forgetful ) Assessment Assessment 1. Non-STEMI; trop peak 9 2. CAD; LHC showed 100% occlusion of small to medium caliber OM branch of LCX. Managed medically as this was late presentation, troponins were trending down, and his CP was atypical. LVEF preserved. CT chest negative for acute PE 3. PAFIB; on amiodarone gtt. went back into AFIB with RVR this am. s/p IV metoprolol x1. Converted back to SR. paroxysmal RVR likely in the setting of fevers, infection 4. Bradycardia, ? SSS; sinus bradycardia and a pause of 4 seconds on scheduled metoprolol. presently back in SR. 4. Hyperlipidemia; statin 5. GERD 6. LE pain, weakness with h/o spinal stenosis. as per IM 7. Hypokalemia, hypomagnesemia; replace 8. Dyspnea with probable PNA. S/p recent COVID infection (01/19) 9. Dementia Recommendations Start oral amiodarone when 24hr loading protocol complete Unable to start scheduled BB due to periods of bradycardia, pause Monitor tele. May ultimately require PPM implantation Eliquis for stroke prophylaxis Secondary prevention DAPT with ASA/Plavix. (ASA x 30 days then discontinue as patient is on Eliquis) Supportive care Ongoing antibiotic therapy, lung optimization Justicifation of Admission Dx: Justifications for Admission: Justification of Admission Dx: Yes CHF: Cardiac Arrhythmias CO: Acute NSTEMI ELY TOLEDO MD 03/13/21 0641: CARDIO Progress Notes Assessment Assessment Patient seen and examined 03/12/21. Agree with SOAKER's assessment and plan. NSTEMI with pleuritic CP, Cardiac cath and echo results noted above - cont medical managment He continues to have AFib/flutter paroxysms on tele - continue to monitor for significant pauses Continue amiodarone for rhythm maintenance and eliquis for stroke prophylaxis If he continues to have significant pauses, we will consider PPM implantation HANS MOLINA APRN Mar 12, 2021 11:48 ELY TOLEDO MD Mar 13, 2021 06:41
[2021-03-12] MEDS: ACETAMINOPHEN 325 MG TABLET. PO PRN ×2 (12:28→20:30)
--- NOTE | 2021-03-12 12:42 | NUR ---
SS following up with discharge planning. SS reviewed pt chart and discussed with pt RN. Pt is currently requiring oxygen at two liters nasal canula. COVID19 negative. Pt has no home oxygen. Pt had heart cath on 03/10/2021. Pt on IV Zosyn and PO Doxycycline. Amiodarone drip being discontinued. PT/OT ordered. SS will continue to follow for discharge planning.
[2021-03-12 12:58] LABS: C-REACTIVE PROTEIN 310.1 mg/L (0-3.3)
[2021-03-12] MEDS: predniSONE 5 MG TABLET PO SCH ×2 (13:05→20:27)
[2021-03-12 15:00] VITALS: BP 119/76
--- NOTE | 2021-03-12 15:12 | RAD ---
EXAM: Lumbar spine CT without contrast. HISTORY: Pain and right lower extremity weakness. Spinal stenosis. TECHNIQUE: Computed tomographic images of the lumbar spine were obtained without contrast. Multiplana r reformatting was performed. *One or more of the following individualized dose reduction techniques were utilized for this examina tion: 1. Automated exposure control. 2. Adjustment of the mA and/or kV according to patient size. 3. Use of iterative reconstruction technique. COMPARISON: 06/08/2020. FINDINGS: There is moderate levoscoliosis centered at L3. There is slight leftward lateral translatio n of L4 on L5. There is near complete loss of the disc space and associated disc space calcification at L5-S1. There is severe degenerative endplate remodeling at the remainder of the lower thoracic and lumbar levels. There is vacuum phenomenon at multiple levels. There is 3 mm grade 1 anterolisthesis of T11 on T12, 2 mm grade 1 anterolisthesis of L1 on L2, 3 mm retrolisthesis of L2 on L3 and 2 mm ret rolisthesis of L3 on L4. There are stable small sclerotic lesions within the left superior aspect of T11. There is a stable sm all lucent lesion within the posterior inferior left aspect of T12. There is cortical trabecular thic kening throughout the entire L1 vertebral body and posterior elements and chronic mild decreased vert ebral body height at L1, stable in appearance. There are dorsal column stimulator leads entering the dorsal aspect of the central canal at T11-T12 and exiting cephalad beyond the ktyaq-ap-ziat. There is bone demineralization. There is a left pleural effusion, partially included on the jwxvm-xj-uauv. There is degenerative subc hondral sclerosis and vacuum phenomenon involving the sacroiliac joints. There is instrumentation wit hin both hips. There is a small left bladder diverticulum, partially included on the [id number]-fiwp. At T10-T11, there is a left paracentral to lateral recess disc protrusion and osteophyte complex supe rimposed on a left lateral predominant disc bulge and endplate osteophytosis. There is mild right and severe left facet arthropathy. There is moderate right and severe left foraminal stenosis. There is moderate central canal stenosis. At T11-T12, there is a left foraminal to extraforaminal disc protrusion superimposed on a left latera l predominant disc bulge and endplate osteophytosis. There is severe left greater than right facet ar thropathy. There is severe left foraminal stenosis. There is moderate to severe central canal stenosi s. At T12-L1, there is a left lateral predominant disc bulge and endplate osteophytosis. There is mild b ilateral facet arthropathy. There is fjif-ph-ktirxcpc left foraminal stenosis. There is moderate cent ral canal stenosis. At L1-L2, there is a disc bulge and endplate remodeling. There is moderate right and mild left facet arthropathy. There is mild right foraminal stenosis. At L2-L3, there is a right foraminal to lateral disc protrusion superimposed on a right lateral predo minant disc bulge and endplate osteophytosis. There is mild bilateral facet arthropathy. There is sev ere right and moderate left foraminal stenosis. There is moderate to severe central canal stenosis. At L3-L4, there is a right lateral recess to lateral disc protrusion superimposed on a right lateral predominant disc bulge and endplate osteophytosis. There is severe right greater than left facet arth ropathy. There is severe right and moderate left foraminal stenosis. There is severe central canal st enosis. At L4-L5, there is a disc bulge and endplate osteophytosis. There is severe bilateral facet arthropat hy. There is moderate to severe bilateral foraminal stenosis. There is moderate to severe central can al stenosis. At L5-S1, there is near complete loss of the disc space. There is endplate osteophytosis. There is mi ld to moderate lateral facet arthropathy. There is moderate left foraminal stenosis. IMPRESSION: 1. Multilevel degenerative change involving the lumbar spine, described in detail above. This results in significant stenosis at the aforementioned levels. These findings are not significantly changed c ompared to the prior study. 2. Lumbar scoliosis and multilevel degenerative listhesis. 3. Stable diffuse cortical and trabecular thickening involving the L1 vertebral segment and chronic m ild L1 compression deformity. The imaging appearance favors Paget's disease. There are additional scl erotic and lucent lesions within the vertebral column which may be due to osseous metastases in this patient with a history of prostate cancer. Correlate with PSA levels and bone scintigraphy. 4. Partial visualization of a dorsal column stimulator, extending cephalad beyond the rmgeg-xn-oflt. Electronically signed by: Rajwinder Courtney MD (03/12/2021 3:10 PM) [facility]
[2021-03-12 16:18] LABS: BILIRUBIN,URINE SMALL (NEG); CLARITY,URINE TURBID; COLOR,URINE YELLOW; NITRITE,URINE NEGATIVE (NEG); PH,URINE 5.5 (<5.0-8.0); PROTEIN,URINE 100 mg/dL (NEG-TRACE)
[2021-03-12] MEDS: AMIODARONE HCL 200 MG TABLET. PO SCH (16:39)
[2021-03-12 16:48] LABS: GRANULAR CASTS,URINE OCCASIONAL /HPF
[2021-03-12 16:49] LABS: AMORPHOUS SEDIMENT,UR PRESENT /HPF; BACTERIA,URINE 0 /HPF (0-FEW); RBC,URINE OCC /HPF (0-2); WBC,URINE OCC /HPF (0-4)
--- NOTE | 2021-03-12 18:25 | RAD ---
AP chest. HISTORY: Pneumonia AP view of the chest was compared with a study from March 08. Right lung appears clear. There are le ft perihilar and basilar infiltrates. There is a small left pleural effusion. There is arthritis in b oth shoulders. Heart is normal in size. IMPRESSION: 1. Persistent left lung infiltrates. 2. Small left effusion. Electronically signed by: Zachery Cadena MD (03/12/2021 6:22 PM) [facility]
[2021-03-12] MEDS ORDERED: IV NORMAL SALINE 1000ML BAG 1,000 ML IV ONE (19:30)
[2021-03-12 19:35] VITALS: BP 111/65
[2021-03-12] MEDS: ATORVASTATIN CALCIUM 40 MG TABLET. PO SCH (20:28)
[2021-03-12 23:10] VITALS: BP 119/66
[2021-03-13 03:35] VITALS: BP 109/73
[2021-03-13 04:25] LABS: BASO % 0 % (0-3); EOS % 0 % (0-3); LYMPH # 0.5 x10^3/uL (1.0-4.8); LYMPH % 4 % (24-48); MEAN CORPUSCULAR HEMOGLOBIN 28 pg (25-35); MEAN CORPUSCULAR HGB CONC 33 g/dL (31-37); MEAN CORPUSCULAR VOLUME 85 fL (79-100); MONO # 0.8 x10^3/uL (0.0-1.1); MONO % 7 % (0-9); NEUT # 10.6 x10^3/uL (1.8-7.7); NEUT % 89 % (31-73); PLATELET COUNT 393 x10^3/uL (140-400); RED BLOOD COUNT 3.52 x10^6/uL (4.30-5.70); RED CELL DISTRIBUTION WIDTH 15.4 % (11.5-14.5); WHITE BLOOD COUNT 11.9 x10^3/uL (4.0-11.0)
[2021-03-13 04:40] LABS: CALCIUM 7.9 mg/dL (8.5-10.1); GFR 71.9
[2021-03-13 04:49] LABS: POTASSIUM 2.7 mmol/L (3.5-5.1)
[2021-03-13] MEDS: POTASSIUM CHLORIDE 20 MEQ TABLET.ER. PO SCH ×2 (05:00→08:20)
[2021-03-13 05:18] LABS: % LYMPHS 4 % (24-48); % MONOS 2 % (0-10); % SEGS 94 % (35-66); PLT ESTIMATE ADEQUATE (ADEQUATE); TOXIC GRANULATION SLIGHT
[2021-03-13] MEDS: PIPERACILLIN/TAZOBACTAM 4.5 GM in IV NORMAL SALINE 100ML 100 ML IV SCH ×3 (06:00→19:00)
[2021-03-13] MEDS: ABIRATERONE ACETATE PO SCH (06:28)
[2021-03-13] MEDS: PANTOPRAZOLE 40 MG TABLET.DR. PO SCH (06:28)
[2021-03-13 07:00] VITALS: BP 119/62
[2021-03-13] MEDS ORDERED: VANCOMYCIN PER PHARMACY MC PRN (08:00)
[2021-03-13] MEDS: MEMANTINE 5 MG TABLET. PO SCH ×2 (08:12→21:46)
[2021-03-13] MEDS: CHOLECALCIFEROL (VITAMIN D3) 1,000 UNIT TABLET PO SCH (08:13)
[2021-03-13] MEDS: CLOPIDOGREL BISULFATE 75 MG TABLET PO SCH (08:13)
[2021-03-13] MEDS: ASPIRIN ENTERIC COATED 81 MG TABLET.DR. PO SCH (08:13)
[2021-03-13] MEDS: CYANOCOBALAMIN (VITAMIN B-12) 1,000 MCG TABLET. PO SCH (08:13)
[2021-03-13] MEDS: APIXABAN 5 MG TABLET. PO SCH ×2 (08:13→21:46)
[2021-03-13] MEDS: MEGESTROL 20 MG TABLET. PO SCH ×2 (08:13→21:00)
[2021-03-13] MEDS: DOXYCYCLINE HYCLATE 100 MG TABLET PO SCH ×2 (08:14→21:46)
[2021-03-13] MEDS: predniSONE 5 MG TABLET PO SCH ×2 (08:14→21:44)
[2021-03-13] MEDS: AMIODARONE HCL 200 MG TABLET. PO SCH (08:19)
[2021-03-13] MEDS: NITROGLYCERIN 0.4MG/HR PATCH. TD SCH (08:20)
[2021-03-13] MEDS: ACETAMINOPHEN 325 MG TABLET. PO PRN ×2 (08:21→21:45)
--- NOTE | 2021-03-13 08:26 | RAD ---
EXAM: THYROID ULTRASOUND. HISTORY: Thyroid nodule. COMPARISON: 03/09/2021 CT. FINDINGS: Sonographic evaluation of the thyroid gland was performed and evaluated using ACR TI-RADS c riteria. Right lobe: The right lobe measures 2.7 x 2.6 cm. The parenchyma is heterogeneous and hyperechoic. Left lobe: The left lobe measures 7.4 x 3.9 x 3.8. It contains a solid dominant nodule measuring 3.5 x 3.1 x 2.9 cm cm. The parenchyma is heterogeneous and hypoechoic. Isthmus: The isthmus measures 8 mm. A 2.8 x 2.4 cm nodule along the inferior aspect of the isthmus on CT is not well visualized currently. IMPRESSION/RECOMMENDATION: 1. Solid nodules within the left thyroid lobe and along the inferior aspect of the isthmus are TI-RAD S 4. Ultrasound-guided fine-needle aspiration is recommended to confirm benignity at the size. Electronically signed by: Margarita Gomez MD (03/13/2021 8:23 AM) [id number]
--- NOTE | 2021-03-13 08:57 | NUR ---
Pharmacy Vancomycin Dosing Note S:Consulted to monitor and dose vancomycin started 03/13/21. O:SAMANTHA CAMPBELL is a 80 year old M with Pneumonia. Height: 5 feet, 10 inches Weight: 94.6 kg [place] Body Weight: 73.00 Adjusted Body Weight: 81.64 Dosing Weight: Actual Other Antibiotics: zosyn LABS: Last BUN: 7 Last Creatinine: 1 Creatinine Clearance: 68 mL/min Last WBC: 11.9 Last Procalcitonin: 0.22 Tmax (past 24 hours): 101.2 Microbiology: 03/11 blood cx: NGTD I/O: 939 /570 Last dose given 03/13/21 at 0819 Vancomycin Dosing: Loading Dose: 2000 mg x1 Dosing Weight: Actual Target Trough: 15-20 A: Based on: patient's age, weight and renal function. P: 1. Begin Vancomycin 1500 mg IV q12h. 2. Follow up Trough level on 03/14/21 at 1930. 3. Pharmacy will continue to monitor, follow and adjust therapy as needed. [facility], 03/13/21 0857
[2021-03-13] MEDS: SENNOSIDES/DOCUSATE 8.6/50MG TABLET. PO SCH ×2 (09:00→21:45)
[2021-03-13] MEDS ORDERED: VANCOMYCIN 2 GM in IV NORMAL SALINE 500ML BAG 500 ML IV ONE (09:00)
[2021-03-13 10:58] VITALS: BP 126/66
--- NOTE | 2021-03-13 11:15 | PDOC ---
HANS MOLINA [employer]IVER 03/13/21 1115: CARDIO Progress Notes Date and Time Date of Service 03/13/21 Time of Evaluation 1112 Subjective Subjective: No Chest Pain, No shortness of breath, No Palpitations Vitals Vitals Vital Signs Date Time Temp Pulse Resp B/P (MAP) Pulse Ox O2 Delivery O2 Flow Rate FiO2 03/13/21 10:58 98.5 86 20 126/66 (86) 96 Nasal Cannula 2.0 98.5 Weight Weight [ ] Input and Output Intake and Output Intake and Output 03/13/21 07:00 Intake Total 939 ml Output Total 570 ml Balance 369 ml Intake Oral 580 ml IV Total 359 ml Output Urine Total 570 ml # Voids 2 # Bowel Movements 1 Laboratory Labs Laboratory Tests Test 03/12/21 16:00 03/13/21 03:40 Urine Collection Type Unknown Urine Color Yellow Urine Clarity Turbid Urine pH 5.5 (<5.0-8.0) Urine Specific [place] 1.025 (1.000-1.030) Urine Protein 100 mg/dL (NEG-TRACE) Urine Glucose (UA) Negative mg/dL (NEG) Urine Ketones (Stick) 40 mg/dL (NEG) Urine Blood Small (NEG) Urine Nitrite Negative (NEG) Urine Bilirubin Small (NEG) Urine Urobilinogen Dipstick 1.0 mg/dL (0.2 mg/dL) Urine Leukocyte Esterase Negative (NEG) Urine RBC Occ /HPF (0-2) Urine WBC Occ /HPF (0-4) Urine Amorphous Sediment Present /HPF Urine Bacteria 0 /HPF (0-FEW) Urine Granular Casts Occasional /HPF Urine Mucus Mod /LPF White Blood Count 11.9 x10^3/uL (4.0-11.0) Red Blood Count 3.52 x10^6/uL (4.30-5.70) Hemoglobin 10.0 g/dL (13.0-17.5) Hematocrit 30.0 % (39.0-53.0) Mean Corpuscular Volume 85 fL (79-100) Mean Corpuscular Hemoglobin 28 pg (25-35) Mean Corpuscular Hemoglobin Concent 33 g/dL (31-37) Red Cell Distribution Width 15.4 % (11.5-14.5) Platelet Count 393 x10^3/uL (140-400) Neutrophils (%) (Auto) 89 % (31-73) Lymphocytes (%) (Auto) 4 % (24-48) Monocytes (%) (Auto) 7 % (0-9) Eosinophils (%) (Auto) 0 % (0-3) Basophils (%) (Auto) 0 % (0-3) Neutrophils # (Auto) 10.6 x10^3/uL (1.8-7.7) Lymphocytes # (Auto) 0.5 x10^3/uL (1.0-4.8) Monocytes # (Auto) 0.8 x10^3/uL (0.0-1.1) Eosinophils # (Auto) 0.0 x10^3/uL (0.0-0.7) Basophils # (Auto) 0.0 x10^3/uL (0.0-0.2) Segmented Neutrophils % 94 % (35-66) Lymphocytes % 4 % (24-48) Monocytes % 2 % (0-10) Toxic Granulation Slight Platelet Estimate Adequate (ADEQUATE) Sodium Level 139 mmol/L (136-145) Potassium Level 2.7 mmol/L (3.5-5.1) Chloride Level 105 mmol/L (98-107) Carbon Dioxide Level 25 mmol/L (21-32) Anion Gap 9 (6-14) Blood Urea Nitrogen 7 mg/dL (8-26) Creatinine 1.0 mg/dL (0.7-1.3) Estimated GFR (Cockcroft-Gault) 71.9 Glucose Level 108 mg/dL (70-99) Calcium Level 7.9 mg/dL (8.5-10.1) Microbiology Micro Microbiology 03/11/21 Blood Culture - Preliminary, Resulted NO GROWTH AFTER 1 DAY Physical Exam HEENT: Neck Supple W Full Motion Chest: Symmetric LUNGS: Clear to Auscultation Heart: RRR Abdomen: Soft N/T Extremities: No Edema, Other (right radial arteriotomy site soft. no hematoma present. Neurovascualr status intact ) Neurology: alert, oriented, follow commands, other (forgetful ) Assessment Assessment 1. Non-STEMI; trop peak 9 2. CAD; LHC showed 100% occlusion of small to medium caliber OM branch of LCX. Managed medically as this was late presentation, troponins were trending down, and his CP was atypical. LVEF preserved. CT chest negative for acute PE 3. PAFIB; on amiodarone gtt. continues to periods of AFIB with RVR intermittently. presently SR 4. Bradycardia, ? SSS; sinus bradycardia and pause noted on scheduled metoprolol. No further pauses overnight noted or reports by nursing staff 4. Hyperlipidemia; statin 5. GERD 6. LE pain, weakness with h/o spinal stenosis. as per IM 7. Hypokalemia, hypomagnesemia; replace 8. Dyspnea with probable PNA. S/p recent COVID infection (01/19) 9. Fevers 10. Dementia 11. Thyroid nodule Recommendations Continue amiodarone for rhythm maintenance Unable to start scheduled BB due to periods of bradycardia, pause Monitor tele. May ultimately require PPM implantation, but not ideal at this time due to persistent fevers. Eliquis for stroke prophylaxis. Secondary prevention DAPT with ASA/Plavix. (ASA x 30 days then discontinue as patient is on Eliquis) Ongoing antibiotic therapy, lung optimization Justicifation of Admission Dx: Justifications for Admission: Justification of Admission Dx: Yes CHF: Cardiac Arrhythmias OR: Acute NSTEMI ELY TOLEDO MD 03/13/212057: CARDIO Progress Notes Assessment Assessment Patient seen and examined. Agree with CLINICAL INFORMATICS EDUCATOR's assessment and plan. NSTEMI with pleuritic CP, Cardiac cath and echo results noted above - cont medical management He continues to have AFib/flutter paroxysms on tele - presently in SR - continue to monitor for significant pauses Continue amiodarone for rhythm maintenance and eliquis for stroke prophylaxis Patient might need PPM implantation for tachy-jn syndrome but will have to wait till he remains afebrile OK for transfer to per patient's family's wishes HANS MOLINA APRN Mar 13, 2021 11:15 ELY TOLEOD MD Mar 13, 2021 20:58
--- NOTE | 2021-03-13 13:14 | PDOC ---
[facility] PROGRESS NOTE Date of Service DOS: DATE: 03/13/21 TIME: 13:10 Chief Complaint Chief Complaint NSTEMI Atypical chest pain Community-acquired pneumonia, possibly gram-negative or possibly gram-positive organism History of Present Illness History of Present Illness HPI: Patient is an 80-year-old white male was brought into the EMS overnight due to 4-day history of mid substernal chest pain. Says the pain started 4 days ago and at that point as it was not bothering her he just noticed that however last night he noticed it was getting much worse decided present. Describes the pain as more pleuritic than a crushing chest pain denies any recent illnesses. Denies any sort of cardiac history. He does report a history of prostate cancer currently in remission, he does have a lot of back pain from this. On presentation emergency room was found to have elevated troponin and some ST changes on his EKG thus heparin drip started cardiology consulted troponins trended overnight appear to have peaked. Given pleuritic nature of chest pain will perform CTA of the chest. Continue heparin drip. 03/10 Patient evaluated and examined at bedside. CTA performed yesterday negative for PE. Discussed with cardiology team today and agree that his chest pain sounds much more like pleurisy. Either way cardiology planning for cath today. Patient agreeable. Continue antibiotics. Will follow up after cath. 03/11: Patient had left heart cath yesterday that showed 100% occlusion of a small to medium caliber obtuse marginal branch of left circumflex artery, normal left ventricle systolic function with ejection fraction estimated at 55%. Due to his late presentation of NSTEMI and culprit vessel being small to medium caliber obtuse marginal branch, he was recommended medical management. Will discontinue IV Unasyn and place on Augmentin. Obtain morning procalcitonin. Continue Eliquis and IV amiodarone, per cardiology. Patient with complaint of right lower extremity pain and weakness today. Reports pain in his right knee and right ankle with movement; also notes pain in his lumbar spine when he lays supine. He does admit to history of lumbar spinal due to his history of lumbar spinal stenosis, denies any prior history of similar right knee or right ankle pain. Febrile this afternoon with T-max 101.5 F. Given history of lumbar spinal stenosis, will obtain CT lumbar spine. Will obtain influenza A & B, blood cultures. 03/12: Febrile overnight, T-max 101.7F. Given persistent fever will repeat COVID-19 testing and broaden antibiotic coverage with Zosyn; continue doxycycline to cover for atypical organisms. Influenza A&B negative; UA, MRSA PCR, and blood cultures pending, although patient has being on antibiotics since 03/09. Will obtain right knee and right ankle x-ray, as well as CT lumbar spine today. Per cardiology, continue amiodarone infusion for A. fib/flutter paroxysms; stop beta-evy due to significant pauses and concern for SSS. Continue Eliquis for stroke prophylaxis. Hypokalemia and hypomagnesemia noted today, will replace. Is curious why he has not been getting his home prednisone; he takes for his back pain related to his history of prostate cancer. Resume home prednisone. 03/13: Afebrile today. Patient states he feels well. and family have some concerns about his right lower extremity pain and mobility. X-ray showed extensive osteoarthritis, but no fractures or new concerning findings. Patient admits to some worsening swelling in his knee and foot for the past several months prior to admission. Discussed with family that these could be consistent with worsening osteoarthritis as well. would like to speak with social secretary to see if it would be possible to have him transferred to or [facility] where his election watcher is located. Continue treatment with IV antibiotics. Vitals/I&O Vitals/I&O: Vital Signs Date Time Temp Pulse Resp B/P (MAP) Pulse Ox O2 Delivery O2 Flow Rate FiO2 03/13/21 10:58 98.5 86 20 126/66 (86) 96 Nasal Cannula 2.0 98.5 I & O 03/12/21 03/12/21 03/13/21 15:00 23:00 07:00 Intake Total 719 ml 100 ml 120 ml Output Total 470 ml 100 ml Balance 719 ml -370 ml 20 ml Physical Exam General: Alert, Oriented X3, Cooperative, No acute distress Heart: Regular rate Lungs: Crackles Abdomen: Soft Extremities: No edema Skin: No rashes, No breakdown Labs Labs: Laboratory Tests Test 03/12/21 16:00 03/13/21 03:40 Urine Collection Type Unknown Urine Color Yellow Urine Clarity Turbid Urine pH 5.5 (<5.0-8.0) Urine Specific [place] 1.025 (1.000-1.030) Urine Protein 100 mg/dL (NEG-TRACE) Urine Glucose (UA) Negative mg/dL (NEG) Urine Ketones (Stick) 40 mg/dL (NEG) Urine Blood Small (NEG) Urine Nitrite Negative (NEG) Urine Bilirubin Small (NEG) Urine Urobilinogen Dipstick 1.0 mg/dL (0.2 mg/dL) Urine Leukocyte Esterase Negative (NEG) Urine RBC Occ /HPF (0-2) Urine WBC Occ /HPF (0-4) Urine Amorphous Sediment Present /HPF Urine Bacteria 0 /HPF (0-FEW) Urine Granular Casts Occasional /HPF Urine Mucus Mod /LPF White Blood Count 11.9 x10^3/uL (4.0-11.0) Red Blood Count 3.52 x10^6/uL (4.30-5.70) Hemoglobin 10.0 g/dL (13.0-17.5) Hematocrit 30.0 % (39.0-53.0) Mean Corpuscular Volume 85 fL (79-100) Mean Corpuscular Hemoglobin 28 pg (25-35) Mean Corpuscular Hemoglobin Concent 33 g/dL (31-37) Red Cell Distribution Width 15.4 % (11.5-14.5) Platelet Count 393 x10^3/uL (140-400) Neutrophils (%) (Auto) 89 % (31-73) Lymphocytes (%) (Auto) 4 % (24-48) Monocytes (%) (Auto) 7 % (0-9) Eosinophils (%) (Auto) 0 % (0-3) Basophils (%) (Auto) 0 % (0-3) Neutrophils # (Auto) 10.6 x10^3/uL (1.8-7.7) Lymphocytes # (Auto) 0.5 x10^3/uL (1.0-4.8) Monocytes # (Auto) 0.8 x10^3/uL (0.0-1.1) Eosinophils # (Auto) 0.0 x10^3/uL (0.0-0.7) Basophils # (Auto) 0.0 x10^3/uL (0.0-0.2) Segmented Neutrophils % 94 % (35-66) Lymphocytes % 4 % (24-48) Monocytes % 2 % (0-10) Toxic Granulation Slight Platelet Estimate Adequate (ADEQUATE) Sodium Level 139 mmol/L (136-145) Potassium Level 2.7 mmol/L (3.5-5.1) Chloride Level 105 mmol/L (98-107) Carbon Dioxide Level 25 mmol/L (21-32) Anion Gap 9 (6-14) Blood Urea Nitrogen 7 mg/dL (8-26) Creatinine 1.0 mg/dL (0.7-1.3) Estimated GFR (Cockcroft-Gault) 71.9 Glucose Level 108 mg/dL (70-99) Calcium Level 7.9 mg/dL (8.5-10.1) Magnesium Level 1.9 mg/dL (1.8-2.4) Assessment and Plan Assessmemt and Plan Problems Medical Problems: (1) ACS (acute coronary syndrome) Status: Acute Comment Review of Relevant I have reviewed the following items lindy (where applicable) has been applied. Medications: Current Medications Medications (Trade) Dose Ordered Sig/Juan Route PRN Reason Start Time Stop Time Status Last Admin Dose Admin Aspirin (Ecotrin) 81 mg DAILYWBKFT PO 03/13/21 08:00 03/13/21 08:13 Amiodarone HCl (Cordarone) 200 mg DAILY PO 03/12/21 16:00 03/13/21 08:19 Sodium Chloride 1,000 ml @ 100 mls/hr 1X ONCE IV 03/12/21 19:30 03/13/21 05:29 DC 03/12/21 20:30 Potassium Chloride (Klor-Con) 40 meq Q4H PO 03/13/21 05:00 03/13/21 09:01 DC 03/13/21 08:20 Piperacillin Sod/ Tazobactam Sod 4.5 gm/Sodium Chloride 100 ml @ 200 mls/hr Q6HRS IV 03/13/21 12:00 03/13/21 13:06 Vancomycin HCl (Vanco Per Pharmacy) 1 each PRN DAILY PRN MC SEE COMMENTS 03/13/21 08:00 03/13/21 08:56 Vancomycin HCl 2 gm/Sodium Chloride 500 ml @ 250 mls/hr 1X ONCE IV 03/13/21 09:00 03/13/21 10:59 DC 03/13/21 08:19 Justifications for Admission Other Justification TEOFILO TOUSSAINT MD Mar 13, 2021 13:14
--- NOTE | 2021-03-13 14:03 | RAD ---
EXAM: Right lower extremity venous Doppler. HISTORY: Right lower extremity pain/swelling. COMPARISON: None. FINDINGS: Grayscale and Doppler analysis of the right lower extremity deep venous system was performe d with graded compression and augmentation. The common femoral, greater saphenous, superficial femora l, popliteal and calf veins were assessed. There is no evidence of deep venous thrombosis. IMPRESSION: 1. No evidence of deep venous thrombosis. Electronically signed by: Margarita Gomez MD (03/13/2021 2:01 PM) [id number]
--- NOTE | 2021-03-13 14:29 | NUR ---
SS following up with discharge planning. SS reviewed pt chart and discussed with pt RN. Pt is currently requiring oxygen at two liters nasal canula. COVID19 negative. Pt on IV Vancomycin, IV Zosyn, and PO Doxycycline. PT/OT recommended fpc unit. Physician met with pt and spouse in room and pt and spouse requesting transfer to or [facility] at this time. SS contacted transfer team, , and spoke with Kellee, [phone]; fax [phone], and made request for transfer. Images clouded to . SS faxed records as requested. SS contacted [facility] transfer team, ; fax [phone], and made request for transfer. Images clouded to [facility]. SS faxed records as requested. Packet placed on chart. SS will continue to follow for discharge planning. Addendum: 03/13/21 at 1556 by ZI WILLARD [facility] reported that they have no beds available at this time. reported that they are closed to inpatient transfers at this time.
[2021-03-13 14:33] VITALS: BP 115/73
[2021-03-13] MEDS: IV 1/2 NORMAL SALINE 1,000 ML IV SCH (16:26)
[2021-03-13 19:00] VITALS: BP 92/72
[2021-03-13] MEDS ORDERED: POTASSIUM CHLORIDE 20 MEQ TABLET.ER. PO ONE (20:00)
[2021-03-13] MEDS ORDERED: VANCOMYCIN 1.5 GM in IV NORMAL SALINE 500ML BAG 500 ML IV SCH (20:00)
[2021-03-13] MEDS: ATORVASTATIN CALCIUM 40 MG TABLET. PO SCH (21:45)
[2021-03-13 22:08] LABS: THYROPEROXIDASE ANTIBODY 7 IU/mL (0-34)
[2021-03-13 23:00] VITALS: BP 121/73
[2021-03-14 03:00] VITALS: BP 103/72
[2021-03-14 04:53] LABS: BASO % 0 % (0-3); EOS % 0 % (0-3); HEMATOCRIT 27.6 % (39.0-53.0); HEMOGLOBIN 9.4 g/dL (13.0-17.5); LYMPH # 0.5 x10^3/uL (1.0-4.8); LYMPH % 5 % (24-48); MEAN CORPUSCULAR HEMOGLOBIN 29 pg (25-35); MEAN CORPUSCULAR HGB CONC 34 g/dL (31-37); MEAN CORPUSCULAR VOLUME 85 fL (79-100); MONO # 0.5 x10^3/uL (0.0-1.1); MONO % 5 % (0-9); NEUT # 9.2 x10^3/uL (1.8-7.7); NEUT % 90 % (31-73); PLATELET COUNT 401 x10^3/uL (140-400); RED BLOOD COUNT 3.25 x10^6/uL (4.30-5.70); RED CELL DISTRIBUTION WIDTH 15.5 % (11.5-14.5); WHITE BLOOD COUNT 10.2 x10^3/uL (4.0-11.0)
[2021-03-14 05:09] LABS: CALCIUM 7.5 mg/dL (8.5-10.1); CREATININE 0.9 mg/dL (0.7-1.3); GFR 81.2; POTASSIUM 3.1 mmol/L (3.5-5.1)
[2021-03-14] MEDS: PIPERACILLIN/TAZOBACTAM 4.5 GM in IV NORMAL SALINE 100ML 100 ML IV SCH ×5 (06:00→23:36)
--- NOTE | 2021-03-14 06:16 | PDOC ---
[employer] [facility] PROGRESS NOTE Date of Service DOS: DATE: 03/14/21 TIME: 06:11 Chief Complaint Chief Complaint NSTEMI Atypical chest pain Community-acquired pneumonia, possibly gram-negative or possibly gram-positive organism History of Present Illness History of Present Illness HPI: Patient is an 80-year-old white male was brought into the EMS overnight due to 4-day history of mid substernal chest pain. Says the pain started 4 days ago and at that point as it was not bothering her he just noticed that however last night he noticed it was getting much worse decided present. Describes the pain as more pleuritic than a crushing chest pain denies any recent illnesses. Denies any sort of cardiac history. He does report a history of prostate cancer currently in remission, he does have a lot of back pain from this. On presentation emergency room was found to have elevated troponin and some ST changes on his EKG thus heparin drip started cardiology consulted troponins trended overnight appear to have peaked. Given pleuritic nature of chest pain will perform CTA of the chest. Continue heparin drip. 03/10 Patient evaluated and examined at bedside. CTA performed yesterday negative for PE. Discussed with cardiology team today and agree that his chest pain sounds much more like pleurisy. Either way cardiology planning for cath today. Patient agreeable. Continue antibiotics. Will follow up after cath. 03/11: Patient had left heart cath yesterday that showed 100% occlusion of a small to medium caliber obtuse marginal branch of left circumflex artery, normal left ventricle systolic function with ejection fraction estimated at 55%. Due to his late presentation of NSTEMI and culprit vessel being small to medium caliber obtuse marginal branch, he was recommended medical management. Will discontinue IV Unasyn and place on Augmentin. Obtain morning procalcitonin. Continue Eliquis and IV amiodarone, per cardiology. Patient with complaint of right lower extremity pain and weakness today. Reports pain in his right knee and right ankle with movement; also notes pain in his lumbar spine when he lays supine. He does admit to history of lumbar spinal due to his history of lumbar spinal stenosis, denies any prior history of similar right knee or right ankle pain. Febrile this afternoon with T-max 101.5 F. Given history of lumbar spinal stenosis, will obtain CT lumbar spine. Will obtain influenza A & B, blood cultures. 03/12: Febrile overnight, T-max 101.7F. Given persistent fever will repeat COVID-19 testing and broaden antibiotic coverage with Zosyn; continue doxycycline to cover for atypical organisms. Influenza A&B negative; UA, MRSA PCR, and blood cultures pending, although patient has being on antibiotics since 03/09. Will obtain right knee and right ankle x-ray, as well as CT lumbar spine today. Per cardiology, continue amiodarone infusion for A. fib/flutter paroxysms; stop beta-evy due to significant pauses and concern for SSS. Continue Eliquis for stroke prophylaxis. Hypokalemia and hypomagnesemia noted today, will replace. Is curious why he has not been getting his home prednisone; he takes for his back pain related to his history of prostate cancer. Resume home prednisone. 03/13: Afebrile today. Patient states he feels well. and family have some concerns about his right lower extremity pain and mobility. X-ray showed extensive osteoarthritis, but no fractures or new concerning findings. Patient admits to some worsening swelling in his knee and foot for the past several months prior to admission. Discussed with family that these could be consistent with worsening osteoarthritis as well. 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 Continue treatment with IV antibiotics. 03/14: Afebrile overnight, still breathing on 2 L nasal cannula. Had ultrasound yesterday of right lower extremity was negative for DVT. Potassium remains persistently low secondary to diarrhea. Still with complaint of right knee i mmobility. X-ray suggestive of severe osteoarthritis. Consulted Dr. Cervantes and we evaluated the patient together bedside. Patient's mobility has improved. Right knee joint injection planned for today, per Dr. Cervantes. Will also obtain CT of right ankle. Will obtain uric acid to evaluate possible gout. MRSA screen negative, will discontinue vancomycin. PT notes recommending SNU. Will continue treatment of pneumonia with IV antibiotics. Continue medical management of CAD, per cardiology. Vitals/I&O Vitals/I&O: Vital Signs Date Time Temp Pulse Resp B/P (MAP) Pulse Ox O2 Delivery O2 Flow Rate FiO2 03/14/21 03:00 99.1 122 20 103/72 (82) 95 Nasal Cannula 2.0 99.1 I & O 03/13/21 03/13/21 03/14/21 15:00 23:00 07:00 Intake Total 1050 ml 300 ml Output Total 250 ml 300 ml Balance 1050 ml 50 ml -300 ml Physical Exam General: Alert, Oriented X3, Cooperative, No acute distress Heart: Regular rate Lungs: Crackles Abdomen: Soft Extremities: Other (Mild edema to right foot and right knee) Skin: No rashes, No breakdown Labs Labs: Laboratory Tests Test 03/13/21 17:45 03/14/21 04:05 Potassium Level 3.3 mmol/L (3.5-5.1) 3.1 mmol/L (3.5-5.1) White Blood Count 10.2 x10^3/uL (4.0-11.0) Red Blood Count 3.25 x10^6/uL (4.30-5.70) Hemoglobin 9.4 g/dL (13.0-17.5) Hematocrit 27.6 % (39.0-53.0) Mean Corpuscular Volume 85 fL (79-100) Mean Corpuscular Hemoglobin 29 pg (25-35) Mean Corpuscular Hemoglobin Concent 34 g/dL (31-37) Red Cell Distribution Width 15.5 % (11.5-14.5) Platelet Count 401 x10^3/uL (140-400) Neutrophils (%) (Auto) 90 % (31-73) Lymphocytes (%) (Auto) 5 % (24-48) Monocytes (%) (Auto) 5 % (0-9) Eosinophils (%) (Auto) 0 % (0-3) Basophils (%) (Auto) 0 % (0-3) Neutrophils # (Auto) 9.2 x10^3/uL (1.8-7.7) Lymphocytes # (Auto) 0.5 x10^3/uL (1.0-4.8) Monocytes # (Auto) 0.5 x10^3/uL (0.0-1.1) Eosinophils # (Auto) 0.0 x10^3/uL (0.0-0.7) Basophils # (Auto) 0.0 x10^3/uL (0.0-0.2) Sodium Level 140 mmol/L (136-145) Chloride Level 108 mmol/L (98-107) Carbon Dioxide Level 25 mmol/L (21-32) Anion Gap 7 (6-14) Blood Urea Nitrogen 7 mg/dL (8-26) Creatinine 0.9 mg/dL (0.7-1.3) Estimated GFR (Cockcroft-Gault) 81.2 Glucose Level 102 mg/dL (70-99) Calcium Level 7.5 mg/dL (8.5-10.1) Assessment and Plan Assessmemt and Plan Problems Medical Problems: (1) ACS (acute coronary syndrome) Status: Acute Comment Review of Relevant I have reviewed the following items lindy (where applicable) has been applied. Medications: Current Medications Medications (Trade) Dose Ordered Sig/Juan Route PRN Reason Start Time Stop Time Status Last Admin Dose Admin Aspirin (Ecotrin) 81 mg DAILYWBKFT PO 03/13/21 08:00 03/13/21 08:13 Piperacillin Sod/ Tazobactam Sod 4.5 gm/Sodium Chloride 100 ml @ 200 mls/hr Q6HRS IV 03/13/21 12:00 03/14/21 00:00 Vancomycin HCl (Vanco Per Pharmacy) 1 each PRN DAILY PRN MC SEE COMMENTS 03/13/21 08:00 03/13/21 08:56 Vancomycin HCl 2 gm/Sodium Chloride 500 ml @ 250 mls/hr 1X ONCE IV 03/13/21 09:00 03/13/21 10:59 DC 03/13/21 08:19 Vancomycin HCl 1.5 gm/Sodium Chloride 500 ml @ 250 mls/hr Q12H IV 03/13/21 20:00 03/13/21 22:03 Potassium Chloride (Klor-Con) 20 meq 1X ONCE PO 03/13/21 20:00 03/13/21 20:12 DC 03/13/21 22:03 Justifications for Admission Other Justification TEOFILO TOUSSAINT MD Mar 14, 2021 06:16
[2021-03-14 07:00] VITALS: BP 101/63
[2021-03-14] MEDS: IV 1/2 NORMAL SALINE 1,000 ML IV SCH ×2 (07:05→20:25)
[2021-03-14] MEDS: ABIRATERONE ACETATE PO SCH (07:24)
[2021-03-14] MEDS: PANTOPRAZOLE 40 MG TABLET.DR. PO SCH (07:28)
[2021-03-14] MEDS: SENNOSIDES/DOCUSATE 8.6/50MG TABLET. PO SCH ×2 (07:50→21:19)
[2021-03-14] MEDS: ASPIRIN ENTERIC COATED 81 MG TABLET.DR. PO SCH (08:44)
[2021-03-14] MEDS: MEMANTINE 5 MG TABLET. PO SCH ×2 (08:44→21:18)
[2021-03-14] MEDS: DOXYCYCLINE HYCLATE 100 MG TABLET PO SCH ×2 (08:44→21:19)
[2021-03-14] MEDS: CLOPIDOGREL BISULFATE 75 MG TABLET PO SCH (08:44)
[2021-03-14] MEDS: CHOLECALCIFEROL (VITAMIN D3) 1,000 UNIT TABLET PO SCH (08:44)
[2021-03-14] MEDS: AMIODARONE HCL 200 MG TABLET. PO SCH (08:45)
[2021-03-14] MEDS: MEGESTROL 20 MG TABLET. PO SCH ×2 (08:45→21:19)
[2021-03-14] MEDS: APIXABAN 5 MG TABLET. PO SCH (08:45)
[2021-03-14] MEDS: predniSONE 5 MG TABLET PO SCH ×2 (08:45→21:18)
[2021-03-14] MEDS: CYANOCOBALAMIN (VITAMIN B-12) 1,000 MCG TABLET. PO SCH (08:45)
[2021-03-14] MEDS: NITROGLYCERIN 0.4MG/HR PATCH. TD SCH (09:00)
[2021-03-14] MEDS ORDERED: methylPREDNISolone ACETATE 40 MG/ML VIAL. IM ONE (10:00)
[2021-03-14] MEDS ORDERED: BUPIVACAINE MPF 0.25% 10 ML VIAL. IJ ONE (10:00)
[2021-03-14] MEDS ORDERED: POTASSIUM CHLORIDE 20 MEQ TABLET.ER. PO ONE (10:45)
[2021-03-14 11:00] VITALS: BP 119/69
--- NOTE | 2021-03-14 11:59 | PDOC ---
HANS MOLINA ALENA 03/14/21 1159: CARDIO Progress Notes Date and Time Date of Service 03/14/21 Time of Evaluation 1200 Subjective Subjective: No Chest Pain, No shortness of breath, No Palpitations, Other (c/o RLE edema ) Vitals Vitals Vital Signs Date Time Temp Pulse Resp B/P (MAP) Pulse Ox O2 Delivery O2 Flow Rate FiO2 03/14/21 11:00 98.9 93 18 119/69 (86) 94 Room Air 98.9 03/14/21 03:00 2.0 Weight Weight [ ] Input and Output Intake and Output Intake and Output 03/14/21 07:00 Intake Total 1350 ml Output Total 550 ml Balance 800 ml Intake Oral 450 ml IV Total 900 ml Output Urine Total 550 ml # Voids 3 # Bowel Movements 2 Laboratory Labs Laboratory Tests Test 03/13/21 17:45 03/14/21 04:05 Potassium Level 3.3 mmol/L (3.5-5.1) 3.1 mmol/L (3.5-5.1) White Blood Count 10.2 x10^3/uL (4.0-11.0) Red Blood Count 3.25 x10^6/uL (4.30-5.70) Hemoglobin 9.4 g/dL (13.0-17.5) Hematocrit 27.6 % (39.0-53.0) Mean Corpuscular Volume 85 fL (79-100) Mean Corpuscular Hemoglobin 29 pg (25-35) Mean Corpuscular Hemoglobin Concent 34 g/dL (31-37) Red Cell Distribution Width 15.5 % (11.5-14.5) Platelet Count 401 x10^3/uL (140-400) Neutrophils (%) (Auto) 90 % (31-73) Lymphocytes (%) (Auto) 5 % (24-48) Monocytes (%) (Auto) 5 % (0-9) Eosinophils (%) (Auto) 0 % (0-3) Basophils (%) (Auto) 0 % (0-3) Neutrophils # (Auto) 9.2 x10^3/uL (1.8-7.7) Lymphocytes # (Auto) 0.5 x10^3/uL (1.0-4.8) Monocytes # (Auto) 0.5 x10^3/uL (0.0-1.1) Eosinophils # (Auto) 0.0 x10^3/uL (0.0-0.7) Basophils # (Auto) 0.0 x10^3/uL (0.0-0.2) Sodium Level 140 mmol/L (136-145) Chloride Level 108 mmol/L (98-107) Carbon Dioxide Level 25 mmol/L (21-32) Anion Gap 7 (6-14) Blood Urea Nitrogen 7 mg/dL (8-26) Creatinine 0.9 mg/dL (0.7-1.3) Estimated GFR (Cockcroft-Gault) 81.2 Glucose Level 102 mg/dL (70-99) Uric Acid 2.3 mg/dL (3.5-7.2) Calcium Level 7.5 mg/dL (8.5-10.1) Microbiology Micro Microbiology 03/11/21 Blood Culture - Preliminary, Resulted NO GROWTH AFTER 2 DAYS Physical Exam HEENT: Neck Supple W Full Motion Chest: Symmetric LUNGS: Clear to Auscultation Heart: RRR (SR, intermittent AFIB with RVR overnight ) Abdomen: Soft N/T Extremities: No Edema Neurology: alert, oriented, follow commands Assessment Assessment 1. Non-STEMI; trop peak 9 2. CAD; LHC showed 100% occlusion of small to medium caliber OM branch of LCX. Managed medically as this was late presentation, troponins were trending down, and his CP was atypical. LVEF preserved. CT chest negative for acute PE 3. PAFIB; on amiodarone gtt. continues to periods of AFIB with RVR intermittently. presently SR 4. SSS, tachybrady; sinus bradycardia and pause noted on scheduled metoprolol, but continue to have periods of AFIB with RVR despite metoprolol 4. Hyperlipidemia; statin 5. GERD 6. LE pain, weakness with h/o spinal stenosis. as per IM 7. Hypokalemia, hypomagnesemia; replace 8. Dyspnea with probable PNA. S/p recent COVID infection (01/19) 9. Fevers 10. Dementia 11. Thyroid nodule Recommendations Continue amiodarone for rhythm maintenance Unable to start scheduled BB due to periods of bradycardia, pause Will need pacemaker implantation for SSS. R/b/a discussed with and patient and they are agreeable. Will ask for clearance from ID given recent fevers. Hold Eliquis Secondary prevention Ongoing antibiotic therapy, lung optimization Supportive care NPO p MN Justicifation of Admission Dx: Justifications for Admission: Justification of Admission Dx: Yes CHF: Cardiac Arrhythmias AL: Acute NSTEMI ELY TOLEDO MD 03/14/212033: CARDIO Progress Notes Assessment Assessment Patient seen and examined. Agree with [facility]'s assessment and plan. NSTEMI with pleuritic CP, Cardiac cath and echo results noted above - cont medical management He continues to have AFib/flutter paroxysms with RVR on tele despite being on amiodarone Any rate controlling agents causing jn/pauses c/w tachy/jn syndrome/SSS Option of PPM implantation followed by titrating rate lowering agents discussed and patient and family agreeable We will get clearance from ID team due to intermittent fevers AHNS MOLINA APRN Mar 14, 2021 11:59 ELY TOLEDO MD Mar 14, 2021 20:34
[2021-03-14] MEDS: ACETAMINOPHEN 325 MG TABLET. PO PRN (14:56)
[2021-03-14 15:00] VITALS: BP 116/73
--- NOTE | 2021-03-14 15:11 | CONS ---
DATE OF CONSULTATION: 03/14/2021 LOCATION: He is in room 669. I saw him at the request of Dr. Ashford. HISTORY OF PRESENT ILLNESS: This is an 80-year-old right-handed male admitted to the Emergency Room with 4-day history of midsternal chest pain on 03/09/2021. He felt pain is getting worse, described as more pleuritic than a crushing chest pain. Denies any recent illness. Denies any sort of cardiac history. He had a history of carcinoma of prostate, currently in remission. He had chronic lower back pain and he notes that he had metastasis to bone. The patient was found with elevated troponin and some ST segment changes on EKG, thus he was started on heparin drip. Cardiology saw him. The patient had a cardiac catheterization, which revealed 100% occlusion of small to medium caliber, obtuse marginal branch of left circumflex artery. Normal left ventricular systolic function with ejection fraction estimated to be at 55%. Due to his late presentation of non-ST segment elevated myocardial infarction and culprit vessel being small to medium caliber obtuse marginal branch, he was recommended medical management. The patient received IV antibiotics for his pleuritic chest pain. He started having right ankle and knee pain with associated weakness starting on 03/11. The patient admits lower back pain mainly while he is lying supine. He had diagnosis of lumbar spinal stenosis. He had cruciate ligament surgery to his right knee and left total knee arthroplasty done in the past. He also developed temperature of 101.5 degrees Fahrenheit on 03/11. Patient was negative for influenza A and B. He received amiodarone infusion for atrial fibrillation and flutter paroxysms. Stopped beta evy due to significant pauses and concern for sick sinus syndrome. He received Eliquis for stroke prophylaxis. He was treated for hypomagnesemia and hypokalemia. The patient was started on prednisone 5 mg, which he has been taking for his back pain. On 03/13, he was afebrile, continued with right lower extremity pain with movement. X-rays revealed osteoarthritis of the right knee and CT scan showed multilevel degenerative disc disease and degenerative joint disease of lumbar vertebrae with associated spinal stenosis and concern for dianna disease or metastatic disease to the spine. X-rays of his right ankle done on 03/12 revealed suspected tiny chronic avulsion fracture fragment inferior to the medial and lateral malleoli and small amount of calcification along the plantar fascia suggestive of plantar fascitis and soft tissue edema. The patient had significant pain while trying to stand with physical therapy. ALLERGIES: The patient is not known allergic to any medication. SOCIAL HISTORY: He is retired, lives with his family and usually walks without any assistive device inside the house. Outside the house, he uses a cane or walker as needed. PHYSICAL EXAMINATION: GENERAL: Today revealed an elderly male. He is alert, oriented to time, place, person and circumstance and follows commands appropriately. NEUROLOGIC: Moves all 4 extremities voluntarily. He is protecting his right shoulder to some extent where he had previous frozen shoulder and also he had cardiac catheterization in his right arm. The patient had some dependent edema of his right arm. He had some edema of his right foot. He had crepitus on range of motion of his right knee joint with knee joint effusion and tenderness to palpation over medial knee joint line and he had tenderness to palpation over right ankle medial and lateral aspect and pain on range of motion of right ankle. No tenderness to palpation over medial or lateral malleolus or plantar aspect of his right foot or right tendo-Achilles was noted. He had equal perception of touch and pinprick sensation bilaterally. Deep tendon reflexes are decreased overall with absent knee and ankle jerks. He had pain free range of motion of his hip joints. Minimal tenderness to palpation over right to sacroiliac joint area. He had palpable stimulator over left sacroiliac joint area. He is independent rolling from side to side. I have not tested his transfers or ambulation skills at this time. 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 Doubt any new fracture, right ankle as reported in the x-ray to obtain CT scan to rule out. Chronic frozen shoulder, right. Clinical evidence of peripheral neuropathy. RECOMMENDATIONS: To proceed with injecting painful right knee joint, which I performed under aseptic skin technique after skin preparation, using alcohol swab with 2 mL of 0.25% Marcaine solution mixed with 1 mL of Depo-Medrol 40 mg per 1 mL solution, and he tolerated the procedure satisfactorily without any side effects, to get him a Cam boot if right ankle pain keep bothering him. Dr. Ashford, I appreciate asking me to participate in the care of this interesting patient. I will be glad to see him for followup with you on as needed basis. MICHAEL/YENNY DR: Aubree TID: [id number]
--- NOTE | 2021-03-14 16:41 | RAD ---
EXAM: CT of the right ankle and foot without contrast. HISTORY: Right ankle pain. TECHNIQUE: CT of the right foot and ankle was performed without intravenous contrast. One or more of the following individualized dose reduction techniques were utilized for this examination: 1. Automated exposure control. 2. Adjustment of the mA and/or kV according to patient size. 3. Use of iterative reconstruction technique. COMPARISON: None. FINDINGS: Small ossicles at the tips of the medial and lateral malleolar line most likely reflect chr onic avulsion injuries. No acute fracture is identified. The alignment of the mortise is maintained. There is mild asymmetry of the mortise joint space, sligh tly wider medially. The talar dome appears intact with mild degenerative changes. Osteopenia appears moderate. First metatarsophalangeal osteoarthritis is mild. Alignment is maintained. There are calcifications o f the plantar fascia. Diffuse atherosclerotic calcifications are noted. IMPRESSION: 1. Changes of chronic ligamentous injuries medially and laterally. No acute fracture. 2. Mild first metatarsophalangeal osteoarthritis. 3. Changes of chronic plantar fasciitis. Electronically signed by: Margarita Gomez MD (03/14/2021 4:38 PM) [id number]
[2021-03-14 19:00] VITALS: BP 173/67
[2021-03-14] MEDS: ATORVASTATIN CALCIUM 40 MG TABLET. PO SCH (21:18)
[2021-03-14] MEDS: traMADol 50 MG TABLET PO PRN (21:19)
[2021-03-14 22:35] LABS: HEMOGLOBIN A1C 5.8 % (4.8-5.6)
[2021-03-14 23:00] VITALS: BP 120/79
[2021-03-15] VITALS (8 sets, daily range): BP systolic 93–141; BP diastolic 65–96
[2021-03-15] MEDS: PIPERACILLIN/TAZOBACTAM 4.5 GM in IV NORMAL SALINE 100ML 100 ML IV SCH (05:19)
[2021-03-15] MEDS: PANTOPRAZOLE 40 MG TABLET.DR. PO SCH (07:30)
[2021-03-15] MEDS: ABIRATERONE ACETATE PO SCH (07:30)
--- NOTE | 2021-03-15 07:41 | PDOC ---
Infectious Disease Note Vital Sign Vital Signs Vital Signs Date Time Temp Pulse Resp B/P (MAP) Pulse Ox O2 Delivery O2 Flow Rate FiO2 03/15/21 02:59 97.7 92 18 141/72 (95) 97 Room Air 97.7 Labs Micro Microbiology 03/11/21 Blood Culture - Preliminary, Resulted NO GROWTH AFTER 3 DAYS Objective Assessment pt seen, consult dictated Plan Plan of Care ok to proceed with pacemaker as rec by cardiology ERICA SINGER MD Mar 15, 2021 07:41
[2021-03-15] MEDS: ASPIRIN ENTERIC COATED 81 MG TABLET.DR. PO SCH (08:00)
--- NOTE | 2021-03-15 08:17 | CONS ---
DATE OF CONSULTATION: 03/15/2021 REASON FOR CONSULTATION: ID clearance for pacemaker. INDICATIONS: This is an 80-year-old gentleman who came in with 1-day history of sickness with chest pain. It was a sharp chest pain. On further questioning, the patient does admit to have about two or three days before then, he was sick and he had significant nausea and vomiting few times. The patient did not feel any fever at home, but when he came in here, he did have fever up to 101.7. The patient has been receiving right now Zosyn, doxycycline and appears to have received vancomycin at some point. The patient's initial white count was 14,000 and now down to 10,000. Chest x-ray showed pneumonia. The patient also had cardiac cath done and it is showing 100% occlusion of the OM branch of the LCx. The patient also has tachybrady syndrome with AFib with RVR and then bradycardia, hence recommended to have pacemaker. He feels still little fever, but is down to 97 and yesterday T-max was 99.4. The patient denies any nausea or vomiting. Denies any chest pain. He does have some shortness of breath, but he is able to walk and he is not on any oxygen. Denies any urinary symptoms, abdominal pain, headache or visual symptoms. PAST MEDICAL HISTORY: The patient has had bilateral hip replacement, left knee replacement, some back problem, coronary artery disease, has prostate cancer, diabetes, hypertension, hyperlipidemia. SOCIAL HISTORY: Negative for smoking, alcohol, illicit drug use. The patient has no animals. No outdoor activity. ALLERGIES: No known drug allergies. CURRENT MEDICATIONS: Reviewed. REVIEW OF SYSTEMS: As in HPI. All other systems reviewed are negative. PHYSICAL EXAMINATION: GENERAL: Alert, oriented gentleman, not in distress. VITAL SIGNS: Stable. T-max is 99.4. HEENT: Both pupils are round and reacting. No conjunctival lesion, no lesion in the mouth. NECK: Supple, no JVP, no lymphadenopathy. LUNGS: Clear. HEART S1, S2 regular, nontender, no organomegaly. EXTREMITIES: No edema, cyanosis. SKIN: Unremarkable. NEUROLOGIC: The patient is alert, awake, and appropriate. No focal neurologic deficit. LABORATORY DATA: White count is 10.2. BUN and creatinine is normal. Urinalysis unremarkable. He is COVID negative. Strep pneumoantigen negative. Blood cultures done on is negative. He had a chest CT, no embolism, mild pericardial effusion, mild patchy airspace opacity of the bilateral lungs, likely atelectasis or infiltrate, small focal consolidation in left lung base, could be atelectasis or pneumonia, enlarged thyroid and liver lesion, cyst versus hemangioma. All other x-rays and CTs reviewed. IMPRESSION: 1. Pneumonia, most likely aspiration from his vomiting 3 days before his presentation. 2. Coronary artery disease. 3. Tachybrady syndrome, needing pacemaker. 4. Fever and leukocytosis, which has improved. 5. Diabetes. 6. Hypertension. 7. Atrial fibrillation. RECOMMENDATION: 1. I do not see any contraindication to go for pacemaker as indicated by Cardiology. 2. Continue Zosyn and doxycycline and use preop either vancomycin or daptomycin. 8. Once the procedure is done, antibiotic can be switched over to p.o. Augmentin for possible discharge. Thank you very much, Dr. Rosa and Dr. Ashford for giving me opportunity to participate in this patient's care. We will sign off please call if any questions or concerns. SIMA/MARCELA WILKS: ISMA/unique TID: [id number]
--- NOTE | 2021-03-15 08:43 | PDOC ---
[facility] [facility] PROGRESS NOTE Date of Service DOS: DATE: 03/15/21 TIME: 08:41 Chief Complaint Chief Complaint NSTEMI Atypical chest pain Community-acquired pneumonia, possibly gram-negative or possibly gram-positive organism A. fib/a flutter Pacemaker implantation for SSS. History of metastatic prostate cancer History of Present Illness History of Present Illness HPI: Patient is an 80-year-old white male was brought into the EMS overnight due to 4-day history of mid substernal chest pain. Says the pain started 4 days ago an d at that point as it was not bothering her he just noticed that however last night he noticed it was getting much worse decided present. Describes the pain as more pleuritic than a crushing chest pain denies any recent illnesses. Denies any sort of cardiac history. He does report a history of prostate cancer currently in remission, he does have a lot of back pain from this. On presentation emergency room was found to have elevated troponin and some ST changes on his EKG thus heparin drip started cardiology consulted troponins trended overnight appear to have peaked. Given pleuritic nature of chest pain will perform CTA of the chest. Continue heparin drip. 03/10 Patient evaluated and examined at bedside. CTA performed yesterday negative for PE. Discussed with cardiology team today and agree that his chest pain sounds much more like pleurisy. Either way cardiology planning for cath today. Patient agreeable. Continue antibiotics. Will follow up after cath. 03/11: Patient had left heart cath yesterday that showed 100% occlusion of a small to medium caliber obtuse marginal branch of left circumflex artery, normal left ventricle systolic function with ejection fraction estimated at 55%. Due to his late presentation of NSTEMI and culprit vessel being small to medium caliber obtuse marginal branch, he was recommended medical management. Will discontinue IV Unasyn and place on Augmentin. Obtain morning procalcitonin. Continue Eliquis and IV amiodarone, per cardiology. Patient with complaint of right lower extremity pain and weakness today. Reports pain in his right knee and right ankle with movement; also notes pain in his lumbar spine when he lays supine. He does admit to history of lumbar spinal due to his history of lumbar spinal stenosis, denies any prior history of similar right knee or right ankle pain. Febrile this afternoon with T-max 101.5 F. Given history of lumbar spinal stenosis, will obtain CT lumbar spine. Will obtain influenza A & B, blood cultures. 03/12: Febrile overnight, T-max 101.7F. Given persistent fever will repeat COVID-19 testing and broaden antibiotic coverage with Zosyn; continue doxycycline to cover for atypical organisms. Influenza A&B negative; UA, MRSA PCR, and blood cultures pending, although patient has being on antibiotics since 03/09. Will obtain right knee and right ankle x-ray, as well as CT lumbar spine today. Per cardiology, continue amiodarone infusion for A. fib/flutter paroxysms; stop beta-evy due to significant pauses and concern for SSS. Continue Eliquis for stroke prophylaxis. Hypokalemia and hypomagnesemia noted today, will replace. Is curious why he has not been getting his home prednisone; he takes for his back pain related to his history of prostate cancer. Resume home prednisone. 03/13: Afebrile today. Patient states he feels well. and family have some concerns about his right lower extremity pain and mobility. X-ray showed extensive osteoarthritis, but no fractures or new concerning findings. Patient admits to some worsening swelling in his knee and foot for the past several months prior to admission. Discussed with family that these could be consistent with worsening osteoarthritis as well. would like to speak with social services director to see if it would be possible to have him transferred to or [facility] where his supervisor [employer] is located. Continue treatment with IV antibiotics. 03/14: Afebrile overnight, still breathing on 2 L nasal cannula. Had ultrasound yesterday of right lower extremity was negative for DVT. Potassium remains persistently low secondary to diarrhea. Still with complaint of right knee immobility. X-ray suggestive of severe osteoarthritis. Consulted Dr. Cervantes and we evaluated the patient together bedside. Patient's mobility has improved. Right knee joint injection planned for today, per Dr. Cervantes. Will also obtain CT of right ankle. Will obtain uric acid to evaluate possible gout. MRSA screen negative, will discontinue vancomycin. PT notes recommending SNU. Will continue treatment of pneumonia with IV antibiotics. Continue medical management of CAD, per cardiology. 03/15: Afebrile, breathing on room air. States he is feeling better, but just complained of some chest congestion. Denies any further diarrhea. Denies any nausea or vomiting. He is to have pacemaker placed today. Will likely transition to p.o. antibiotics tomorrow. Physical therapy recommending SNU, but anxious to go to the hospital. Had knee injection yesterday with slight improvement in pain. Depending on physical therapy course, anticipate discharge soon with home health or SNU. Vitals/I&O Vitals/I&O: Vital Signs Date Time Temp Pulse Resp B/P (MAP) Pulse Ox O2 Delivery O2 Flow Rate FiO2 03/15/21 07:00 99.0 132 18 117/67 (84) 94 Room Air 99.0 I & O 03/14/21 03/14/21 03/15/21 15:00 23:00 07:00 Intake Total 950 ml 500 ml 400 ml Output Total 400 ml 600 ml Balance 950 ml 100 ml -200 ml Physical Exam General: Alert, Oriented X3, Cooperative, No acute distress Heart: Regular rate Lungs: Crackles Abdomen: Soft Extremities: Other (Mild edema to right foot and right knee) Skin: No rashes, No breakdown Assessment and Plan Assessmemt and Plan Problems Medical Problems: (1) ACS (acute coronary syndrome) Status: Acute Comment Review of Relevant I have reviewed the following items lindy (where applicable) has been applied. Medications: Current Medications Medications (Trade) Dose Ordered Sig/Juan Route PRN Reason Start Time Stop Time Status Last Admin Dose Admin Methylprednisolone Acetate (DEPO-Medrol 40MG VIAL) 40 mg 1X ONCE IM 03/14/21 10:00 03/14/21 10:01 DC 03/14/21 10:00 Bupivacaine HCl (Sensorcaine-Mpf 0.25%) 10 ml 1X ONCE IJ 03/14/21 10:00 03/14/21 10:01 DC 03/14/21 10:00 Potassium Chloride (Klor-Con) 40 meq 1X ONCE PO 03/14/21 10:45 03/14/21 10:46 DC 03/14/21 14:37 Justifications for Admission Other Justification TEOFILO TOUSSAINT MD Mar 15, 2021 08:43
[2021-03-15] MEDS ORDERED: ceFAZolin SODIUM 1 GM in IV NORMAL SALINE 100ML 100 ML IRR ONE (08:45)
[2021-03-15] MEDS: MEGESTROL 20 MG TABLET. PO SCH ×2 (09:00→21:34)
[2021-03-15] MEDS: guaiFENesin DM 600/30MG 1 TAB TAB.ER.12H PO SCH ×2 (09:00→21:33)
[2021-03-15] MEDS: AMIODARONE HCL 200 MG TABLET. PO SCH (09:00)
[2021-03-15] MEDS: CYANOCOBALAMIN (VITAMIN B-12) 1,000 MCG TABLET. PO SCH (09:00)
[2021-03-15] MEDS: MEMANTINE 5 MG TABLET. PO SCH ×2 (09:00→21:35)
[2021-03-15] MEDS: NITROGLYCERIN 0.4MG/HR PATCH. TD SCH (09:00)
[2021-03-15] MEDS: CHOLECALCIFEROL (VITAMIN D3) 1,000 UNIT TABLET PO SCH (09:00)
[2021-03-15] MEDS: predniSONE 5 MG TABLET PO SCH ×2 (09:00→21:35)
[2021-03-15] MEDS: SENNOSIDES/DOCUSATE 8.6/50MG TABLET. PO SCH ×2 (09:00→21:37)
--- NOTE | 2021-03-15 09:40 | PDOC ---
PROGRESS NOTES Date of Service DATE: 03/15/21 TIME: 09:36 Subjective Subjective He feels better without any significant pain in his right knee and ankle. Objective Objective Vital Signs Date Time Temp Pulse Resp B/P (MAP) Pulse Ox O2 Delivery O2 Flow Rate FiO2 03/15/21 07:00 99.0 132 18 117/67 (84) 94 Room Air 99.0 03/14/21 03:00 2.0 Intake and Output 03/15/21 07:00 Intake Total 1850 ml Output Total 1000 ml Balance 850 ml Intake Oral 950 ml IV Total 900 ml Output Urine Total 1000 ml # Voids 2 # Bowel Movements 2 Physical Exam Physical Exam He is alert,supine in bed and seems to be comfortable. He is to have pacemaker placement today. 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 Serum uric acid level is low. Assessment Assessment Problems Medical Problems: (1) ACS (acute coronary syndrome) Status: Acute Plan Plan of Care To get him up as tolerated after pacemaker placement and hopefully home when medically stable,early next week. Comment Review of Relevant I have reviewed the following items lindy (where applicable) has been applied. Labs Laboratory Tests Test 03/13/21 17:45 03/14/21 04:05 Potassium Level 3.3 mmol/L (3.5-5.1) 3.1 mmol/L (3.5-5.1) White Blood Count 10.2 x10^3/uL (4.0-11.0) Red Blood Count 3.25 x10^6/uL (4.30-5.70) Hemoglobin 9.4 g/dL (13.0-17.5) Hematocrit 27.6 % (39.0-53.0) Mean Corpuscular Volume 85 fL (79-100) Mean Corpuscular Hemoglobin 29 pg (25-35) Mean Corpuscular Hemoglobin Concent 34 g/dL (31-37) Red Cell Distribution Width 15.5 % (11.5-14.5) Platelet Count 401 x10^3/uL (140-400) Neutrophils (%) (Auto) 90 % (31-73) Lymphocytes (%) (Auto) 5 % (24-48) Monocytes (%) (Auto) 5 % (0-9) Eosinophils (%) (Auto) 0 % (0-3) Basophils (%) (Auto) 0 % (0-3) Neutrophils # (Auto) 9.2 x10^3/uL (1.8-7.7) Lymphocytes # (Auto) 0.5 x10^3/uL (1.0-4.8) Monocytes # (Auto) 0.5 x10^3/uL (0.0-1.1) Eosinophils # (Auto) 0.0 x10^3/uL (0.0-0.7) Basophils # (Auto) 0.0 x10^3/uL (0.0-0.2) Sodium Level 140 mmol/L (136-145) Chloride Level 108 mmol/L (98-107) Carbon Dioxide Level 25 mmol/L (21-32) Anion Gap 7 (6-14) Blood Urea Nitrogen 7 mg/dL (8-26) Creatinine 0.9 mg/dL (0.7-1.3) Estimated GFR (Cockcroft-Gault) 81.2 Glucose Level 102 mg/dL (70-99) Hemoglobin A1c 5.8 % (4.8-5.6) Uric Acid 2.3 mg/dL (3.5-7.2) Calcium Level 7.5 mg/dL (8.5-10.1) Microbiology 03/11/21 Blood Culture - Preliminary, Resulted NO GROWTH AFTER 3 DAYS Medications Current Medications Heparin Sodium (Porcine) (Heparin Sodium) 4,000 unit 1X ONCE IV Last administered on 03/08/21at 21:37; Start 03/08/21 at 21:30; Stop 03/08/21 at 21:31; Status DC Heparin Sodium/ Dextrose 250 ml @ 0 mls/hr 1X ONCE IV ; Start 03/08/21 at 21:00; Stop 03/08/21 at 21:01; Status UNV Fentanyl Citrate (Fentanyl 2ml Vial) 50 mcg 1X ONCE IVP Last administered on 03/08/21at 21:41; Start 03/08/21 at 21:00; Stop 03/08/21 at 21:21; Status DC Heparin Sodium/ Dextrose 250 ml @ 10 mls/hr CONT PRN IV PER PROTOCOL Last administered on 03/09/21at 17:52; Start 03/08/21 at 21:30; Stop 03/10/21 at 09:37; Status DC Heparin Sodium (Porcine) (Heparin Sodium) 2,250 unit PRN Q6HRS PRN IV FOR UFH LEVEL LESS THAN 0.2 Last administered on 03/10/21at 06:46; Start 03/08/21 at 21:30; Stop 03/10/21 at 09:37; Status DC Info (Anti-Coagulation Monitoring By Pharmacy) 1 each PRN DAILY PRN MC PER PROTOCOL Last administered on 03/09/21at 11:56; Start 03/08/21 at 21:30; Stop 03/10/21 at 14:51; Status DC Potassium Chloride (Klor-Con) 40 meq 1X ONCE PO Last administered on 03/08/21at 22:22; Start 03/08/21 at 22:00; Stop 03/08/21 at 22:01; Status DC Magnesium Sulfate/ Dextrose 100 ml @ 100 mls/hr 1X ONCE IV Last administered on 03/08/21at 22:23; Start 03/08/21 at 22:00; Stop 03/08/21 at 22:59; Status DC Potassium Chloride/Water 100 ml @ 50 mls/hr 1X ONCE IV ; Start 03/08/21 at 21:45; Stop 03/08/21 at 23:44; Status UNV Potassium Chloride/Water 100 ml @ 100 mls/hr Q1H IV Last administered on 03/09/21at 01:03; Start 03/08/21 at 22:00; Stop 03/08/21 at 23:59; Status DC Ondansetron HCl (Zofran) 4 mg PRN Q8HRS PRN IVP NAUSEA/VOMITING 1ST CHOICE; Start 03/08/21 at 22:30; Stop 03/09/21 at 11:45; Status DC Fentanyl Citrate (Fentanyl 2ml Vial) 50 mcg PRN Q2HRS PRN IVP CHEST PAIN Last administered on 03/09/21at 09:00; Start 03/08/21 at 22:30 Sodium Chloride 1,000 ml @ 75 mls/hr 1X ONCE IV Last administered on 03/09/21at 01:48; Start 03/08/21 at 23:00; Stop 03/09/21 at 12:19; Status DC Sodium Chloride 500 ml @ 500 mls/hr 1X ONCE IV Last administered on 03/08/21at 22:48; Start 03/08/21 at 23:00; Stop 03/08/21 at 23:59; Status DC Morphine Sulfate (Morphine Sulfate) 4 mg 1X ONCE IVP Last administered on 03/08/21at 22:47; Start 03/08/21 at 23:00; Stop 03/08/21 at 23:01; Status DC Vitamin D (Vitamin D3) 1,000 unit DAILY PO Last administered on 03/14/21at 08:44; Start 03/09/21 at 10:00 Cyanocobalamin (Vitamin B-12) 1,000 mcg DAILY PO Last administered on 03/14/21at 08:45; Start 03/09/21 at 10:00 Memantine (Namenda) 5 mg BID PO Last administered on 03/14/21at 21:18; Start 03/09/21 at 10:00 Tramadol HCl (Ultram) 50 mg PRN BID PRN PO PAIN; Start 03/09/21 at 09:30; Stop 03/09/21 at 09:32; Status DC Megestrol Acetate (Megace) 40 mg BID PO Last administered on 03/14/21at 21:19; Start 03/09/21 at 10:00 Pantoprazole Sodium (Protonix) 40 mg DAILYAC PO Last administered on 03/14/21at 07:28; Start 03/09/21 at 10:00 Tramadol HCl (Ultram) 50 mg PRN Q6HRS PRN PO PAIN Last administered on 03/14/21at 21:19; Start 03/09/21 at 09:30 Ondansetron HCl (Zofran) 4 mg PRN Q6HRS PRN IVP NAUSEA/VOMITING; Start 03/09/21 at 09:45 Calcium Carbonate/ Glycine (Tums) 500 mg PRN Q3HRS PRN PO UPSET STOMACH; Start 03/09/21 at 09:45 Zolpidem Tartrate (Ambien) 5 mg PRN QHS PRN PO INSOMNIA, MAY REPEAT IN 1HR Last administered on 03/10/21at 20:55; Start 03/09/21 at 09:45 Info (Non-Icu Electrolyte Protocol) 1 ea PRN DAILY PRN MC SEE COMMENTS; Start 03/09/21 at 09:45 Oxycodone HCl (Roxicodone) 5 mg PRN Q3HRS PRN PO BREAKTHROUGH PAIN Last administered on 03/09/21at 20:50; Start 03/09/21 at 09:45 Acetaminophen (Tylenol) 650 mg PRN Q6HRS PRN PO Headaches, Temp > 101.5F Last administered on 03/14/21at 14:56; Start 03/09/21 at 09:45 Senna/Docusate Sodium (Senna Plus) 1 tab BID PO Last administered on 03/14/21at 21:19; Start 03/09/21 at 21:00 Iohexol (Omnipaque 350 Mg/ml) 90 ml 1X ONCE IV Last administered on 03/09/21at 09:50; Start 03/09/21 at 09:45; Stop 03/09/21 at 09:46; Status DC Nitroglycerin (Nitro-Dur 0.4mg) 1 patch DAILY TD Last administered on 03/13/21 at 08:20; Start 03/09/21 at 10:00 Morphine Sulfate (Morphine Sulfate) 4 mg PRN Q2HR PRN IV PAIN Last administered on 03/09/21at 20:51; Start 03/09/21 at 09:45 Non-Formulary Medication (Abiraterone Acetate (Zytiga)) 4 tab DAILYAC PO Last administered on 03/14/21at 07:24; Start 03/09/21 at 11:30 Doxycycline Hyclate (Vibra-Tab) 100 mg BID PO Last administered on 03/14/21at 21:19; Start 03/09/21 at 13:00; Stop 03/15/21 at 08:54; Status DC Ampicillin Sodium/ Sulbactam Sodium 1.5 gm/Sodium Chloride 50 ml @ 100 mls/hr Q6HRS IV Last administered on 03/11/21at 11:41; Start 03/09/21 at 14:00; Stop 03/11/21 at 14:52; Status DC Nitroglycerin (Nitrostat) 0.4 mg PRN Q5MIN PRN SL CHEST PAIN Last administered on 03/09/21at 18:04; Start 03/09/21 at 18:00 Nitroglycerin (Nitrostat) 0.4 mg STK-MED ONCE SL ; Start 03/09/21 at 18:02; Stop 03/09/21 at 18:02; Status DC Nitroglycerin/ Dextrose 250 ml @ 1.5 mls/hr CONT PRN IV SEE I/O RECORD Last administered on 03/09/21at 20:52; Start 03/09/21 at 18:30 Digoxin (Lanoxin) 500 mcg 1X ONCE IV Last administered on 03/10/21at 03:13; Start 03/10/21 at 03:30; Stop 03/10/21 at 03:31; Status DC Digoxin (Lanoxin) 250 mcg 1X ONCE IV Last administered on 03/10/21at 04:51; Start 03/10/21 at 05:00; Stop 03/10/21 at 05:01; Status DC Diltiazem HCl 125 mg/Sodium Chloride 125 ml @ 5 mls/hr CONT PRN IV PER PROTOCOL Last administered on 03/10/21at 06:13; Start 03/10/21 at 04:45; Stop 03/10/21 at 09:36; Status DC Iodixanol (Visipaque 320) 100 ml STK-MED ONCE .ROUTE ; Start 03/10/21 at 07:56; Stop 03/10/21 at 07:56; Status DC Lidocaine HCl (Xylocaine-Mpf 1% 2ml Vial) 2 ml STK-MED ONCE .ROUTE ; Start 03/10/21 at 07:56; Stop 03/10/21 at 07:56; Status DC Heparin Sodium/ Sodium Chloride 1,000 ml @ As Directed STK-MED ONCE .ROUTE ; S tart 03/10/21 at 07:56; Stop 03/10/21 at 07:56; Status DC Fentanyl Citrate (Fentanyl 2ml Vial) 100 mcg STK-MED ONCE .ROUTE ; Start 03/10/21 at 08:10; Stop 03/10/21 at 08:10; Status DC Midazolam HCl (Versed) 2 mg STK-MED ONCE .ROUTE ; Start 03/10/21 at 08:10; Stop 03/10/21 at 08:11; Status DC Heparin Sodium (Porcine) (Heparin Sodium) 10,000 unit STK-MED ONCE .ROUTE ; Start 03/10/21 at 08:11; Stop 03/10/21 at 08:11; Status DC Verapamil HCl (Verapamil) 5 mg STK-MED ONCE .ROUTE ; Start 03/10/21 at 08:11; Stop 03/10/21 at 08:11; Status DC Nitroglycerin (Nitroglycerin) 200 mcg STK-MED ONCE .ROUTE ; Start 03/10/21 at 08:11; Stop 03/10/21 at 08:11; Status DC Nitroglycerin (Nitroglycerin) 200 mcg 1X ONCE IART Last administered on 03/10/21at 08:30; Start 03/10/21 at 08:30; Stop 03/10/21 at 08:31; Status DC Verapamil HCl (Verapamil) 2.5 mg 1X ONCE IART Last administered on 03/10/21at 08:30; Start 03/10/21 at 08:30; Stop 03/10/21 at 08:31; Status DC Heparin Sodium (Porcine) (Heparin Sodium) 2,500 unit 1X ONCE IART Last administered on 03/10/21 08:30; Start 03/10/21 at 08:30; Stop 03/10/21 at 08:31; Status DC Heparin Sodium/ Sodium Chloride (HEPARIN for ARTERIAL LINE FLUSH) 1,000 unit 1X ONCE IART Last administered on 03/10/21 08:30; Start 03/10/21 at 08:30; Stop 03/10/21 at 08:31; Status DC Midazolam HCl (Versed) 2 mg 1X ONCE IV Last administered on 03/10/21 08:30; Start 03/10/21 at 08:30; Stop 03/10/21 at 08:31; Status DC Fentanyl Citrate (Fentanyl 2ml Vial) 100 mcg 1X ONCE IV Last administered on 03/10/21 08:30; Start 03/10/21 at 08:30; Stop 03/10/21 at 08:31; Status DC Iodixanol (Visipaque 320) 100 ml 1X ONCE IART Last administered on 03/10/21at 08:30; Start 03/10/21 at 08:30; Stop 03/10/21 at 08:31; Status DC Lidocaine HCl (Xylocaine-Mpf 1% 2ml Vial) 2 ml 1X ONCE INJ Last administered on 03/10/21 08:30; Start 03/10/21 at 08:30; Stop 03/10/21 at 08:31; Status DC Sodium Chloride 1,000 ml @ 75 mls/hr [id number] IV Last administered on 03/10/21at 09:45; Start 03/10/21 at 09:45 Aspirin (Ecotrin) 325 mg DAILYWBKFT PO Last administered on 03/11/21at 08:44; Start 03/11/21 at 08:00; Stop 03/11/21 at 11:24; Status DC Clopidogrel Bisulfate (Plavix) 75 mg DAILYWBKFT PO Last administered on 03/14/21at 08:44; Start 03/11/21 at 08:00; Stop 03/14/21 at 15:06; Status DC Metoprolol Tartrate (Lopressor) 25 mg BID PO Last administered on 03/10/21at 20:56; Start 03/10/21 at 10:30; Stop 03/11/21 at 11:24; Status DC Atorvastatin Calcium (Lipitor) 40 mg QHS PO Last administered on 03/14/21at 21:18; Start 03/10/21 at 21:00 Clopidogrel Bisulfate (Plavix) 300 mg 1X ONCE PO Last administered on 03/10/21at 09:43; Start 03/10/21 at 09:45; Stop 03/10/21 at 09:46; Status DC Potassium Chloride (Klor-Con) 40 meq 1X ONCE PO Last administered on 03/10/21at 13:14; Start 03/10/21 at 13:00; Stop 03/10/21 at 13:01; Status DC Amiodarone HCl 150 mg/Dextrose 103 ml @ 600 mls/hr 1X ONCE IV Last administered on 03/11/21at 13:08; Start 03/11/21 at 11:30; Stop 03/11/21 at 11:40; Status DC Amiodarone HCl 450 mg/Dextrose 259 ml @ 0 mls/hr CONT PRN IV SEE I/O RECORD Last administered on 03/11/21at 22:44; Start 03/11/21 at 11:30; Stop 03/12/21 at 11:29; Status DC Apixaban (Eliquis) 5 mg BID PO Last administered on 03/14/21at 08:45; Start 03/11/21 at 12:00; Stop 03/14/21 at 15:06; Status DC Info (Anti-Coagulation Monitoring By Pharmacy) 1 each PRN DAILY PRN MC PER PROTOCOL; Start 03/11/21 at 11:45 Amoxicillin/ Clavulanate Potassium (Augmentin 875/ 125mg) 1 tab BID PO Last administered on 03/11/21at 21:52; Start 03/11/21 at 21:00; Stop 03/12/21 at 06:51; Status DC Potassium Chloride (Klor-Con) 40 meq 1X ONCE PO ; Start 03/11/21 at 17:00; Stop 03/11/21 at 17:01; Status UNV Piperacillin Sod/ Tazobactam Sod (Zosyn Per Pharmacy) 1 each PRN DAILY PRN MC SEE COMMENTS; Start 03/12/21 at 06:45; Stop 03/15/21 at 08:54; Status DC Piperacillin Sod/ Tazobactam Sod 4.5 gm/Sodium Chloride 100 ml @ 200 mls/hr Q8HRS IV Last administered on 03/13/21at 06:00; Start 03/12/21 at 07:00; Stop 03/13/21 at 07:16; Status DC Magnesium Sulfate/ Dextrose 100 ml @ 100 mls/hr 1X ONCE IV Last administered on 03/12/21at 11:51; Start 03/12/21 at 10:00; Stop 03/12/21 at 10:59; Status DC Potassium Chloride (Klor-Con) 40 meq 1X ONCE PO Last administered on 03/12/21at 09:37; Start 03/12/21 at 09:30; Stop 03/12/21 at 09:32; Status DC Prednisone (Prednisone) 5 mg BID PO Last administered on 03/14/21at 21:18; Start 03/12/21 at 12:00 Metoprolol Tartrate (Lopressor Vial) 5 mg 1X ONCE IVP Last administered on 03/12/21at 11:12; Start 03/12/21 at 11:00; Stop 03/12/21 at 11:04; Status DC Aspirin (Ecotrin) 81 mg DAILYWBKFT PO Last administered on 03/14/21at 08:44; Start 03/13/21 at 08:00 Amiodarone HCl (Cordarone) 200 mg DAILY PO Last administered on 03/14/21at 08:45; Start 03/12/21 at 16:00 Sodium Chloride 1,000 ml @ 100 mls/hr 1X ONCE IV Last administered on 03/12/21at 20:30; Start 03/12/21 at 19:30; Stop 03/13/21 at 05:29; Status DC Potassium Chloride (Klor-Con) 40 meq Q4H PO Last administered on 03/13/21at 08:20; Start 03/13/21 at 05:00; Stop 03/13/21 at 09:01; Status DC Piperacillin Sod/ Tazobactam Sod 4.5 gm/Sodium Chloride 100 ml @ 200 mls/hr Q6HRS IV Last administered on 03/15/21at 05:19; Start 03/13/21 at 12:00; Stop 03/15/21 at 08:54; Status DC Vancomycin HCl (Vanco Per Pharmacy) 1 each PRN DAILY PRN MC SEE COMMENTS Last administered on 03/13/21at 08:56; Start 03/13/21 at 08:00; Stop 03/14/21 at 06:14; Status DC Vancomycin HCl 2 gm/Sodium Chloride 500 ml @ 250 mls/hr 1X ONCE IV Last administered on 03/13/21at 08:19; Start 03/13/21 at 09:00; Stop 03/13/21 at 10:59; Status DC Vancomycin HCl 1.5 gm/Sodium Chloride 500 ml @ 250 mls/hr Q12H IV Last administered on 03/13/21at 22:03; Start 03/13/21 at 20:00; Stop 03/14/21 at 06:14; Status DC Vancomycin HCl (Vancomycin Trough Level) 1 each 1X ONCE MC ; Start 03/14/21 at 19:30; Stop 03/14/21 at 06:20; Status DC Potassium Chloride (Klor-Con) 20 meq 1X ONCE PO Last administered on 03/13/21at 22:03; Start 03/13/21 at 20:00; Stop 03/13/21 at 20:12; Status DC Methylprednisolone Acetate (DEPO-Medrol 40MG VIAL) 40 mg 1X ONCE IM Last administered on 03/14/21at 10:00; Start 03/14/21 at 10:00; Stop 03/14/21 at 10:01; Status DC Bupivacaine HCl (Sensorcaine-Mpf 0.25%) 10 ml 1X ONCE IJ Last administered on 03/14/21at 10:00; Start 03/14/21 at 10:00; Stop 03/14/21 at 10:01; Status DC Potassium Chloride (Klor-Con) 40 meq 1X ONCE PO Last administered on 03/14/21at 14:37; Start 03/14/21 at 10:45; Stop 03/14/21 at 10:46; Status DC Apixaban (Eliquis) 5 mg BID PO ; Start 03/16/21 at 09:00 Clopidogrel Bisulfate (Plavix) 75 mg DAILYWBKFT PO ; Start 03/15/21 at 16:00 Cefazolin Sodium/ Dextrose 50 ml @ 100 mls/hr 1X ONCE IV ; Start 03/15/21 at 06:00; Stop 03/15/21 at 08:43; Status DC Daptomycin 500 mg/ Sodium Chloride 50 ml @ 100 mls/hr 1X ONCE IV ; Start 03/15/21 at 10:00; Stop 03/15/21 at 10:29 Cefazolin Sodium 1 gm/Sodium Chloride 100 ml @ 600 mls/hr 1X ONCE IRR ; Start 03/15/21 at 08:45; Stop 03/15/21 at 08:54; Status DC Guaifenesin (MUCINEX ER with DM) 1 tab BID PO ; Start 03/15/21 at 09:00 Amoxicillin/ Clavulanate Potassium (Augmentin 875/ 125mg) 1 tab BID PO ; Start 03/15/21 at 12:00 Active Scripts Active Reported Vitamin D3 (Vitamin D) 25 Mcg Tablet 25 Mcg PO DAILY 1,000 UNITS = 25 MCG B-12 (Cyanocobalamin (Vitamin B-12)) 1,000 Mcg Tablet 1,000 Mcg PO DAILY Folic Acid 0.4 Mg Tablet 1 Mg PO DAILY Tramadol Hcl 50 Mg Tablet 50 Mg PO PRN BID PRN Calcium Carbonate 650 Mg Tablet 2 Tab PO DAILY 30 Days Megestrol Acetate 40 Mg Tablet 40 Mg PO BID Namenda (Memantine Hcl) 10 Mg Tablet 5 Mg PO BID Omeprazole 20 Mg Capsule.dr 20 Mg PO DAILY Prednisone 2.5 Mg Tablet 5 Mg PO BID Zytiga (Abiraterone Acetate) 250 Mg Tablet 4 Tab PO DAILY 30 Days Vitals/I & O Vital Sign - Last 24 Hours 03/14/21 03/14/21 03/14/21 03/14/21 11:00 15:00 19:00 20:00 Temp 98.9 99.4 99.3 98.9 99.4 99.3 Pulse 93 90 88 Resp 18 18 18 B/P (MAP) 119/69 (86) 116/73 (87) 173/67 (102) Pulse Ox 94 96 97 O2 Delivery Room Air Room Air Room Air Room Air 03/14/21 03/15/21 03/15/21 23:00 02:59 07:00 Temp 98.4 97.7 99.0 98.4 97.7 99.0 Pulse 91 92 132 Resp 18 18 18 B/P (MAP) 120/79 (93) 141/72 (95) 117/67 (84) Pulse Ox 97 97 94 O2 Delivery Room Air Room Air Room Air Intake and Output 03/14/21 03/14/21 03/15/21 15:00 23:00 07:00 Intake Total 950 ml 500 ml 400 ml Output Total 400 ml 600 ml Balance 950 ml 100 ml -200 ml Justifications for Admission Other Justification TAMI ANN MD Mar 15, 2021 09:40
[2021-03-15] MEDS: IV 1/2 NORMAL SALINE 1,000 ML IV SCH ×2 (09:45→16:48)
[2021-03-15] MEDS ORDERED: DAPTOmycin (GENERIC) IVPB 500 MG in IV NORMAL SALINE 50ML 50 ML IV ONE (10:00)
[2021-03-15 10:05] LABS: BASO # 0.1 x10^3/uL (0.0-0.2); BASO % 1 % (0-3); EOS % 0 % (0-3); HEMOGLOBIN 9.1 g/dL (13.0-17.5); LYMPH # 0.8 x10^3/uL (1.0-4.8); LYMPH % 8 % (24-48); MEAN CORPUSCULAR HEMOGLOBIN 29 pg (25-35); MEAN CORPUSCULAR HGB CONC 34 g/dL (31-37); MEAN CORPUSCULAR VOLUME 85 fL (79-100); MONO # 0.7 x10^3/uL (0.0-1.1); MONO % 7 % (0-9); NEUT # 8.1 x10^3/uL (1.8-7.7); NEUT % 83 % (31-73); PLATELET COUNT 440 x10^3/uL (140-400); RED BLOOD COUNT 3.16 x10^6/uL (4.30-5.70); RED CELL DISTRIBUTION WIDTH 15.7 % (11.5-14.5); WHITE BLOOD COUNT 9.7 x10^3/uL (4.0-11.0)
[2021-03-15 10:24] LABS: CALCIUM 7.9 mg/dL (8.5-10.1); GFR 71.9; POTASSIUM 3.1 mmol/L (3.5-5.1)
[2021-03-15] MEDS ORDERED: fentaNYL PF VIAL 100 MCG/2 ML VIAL ONE (10:56)
[2021-03-15] MEDS ORDERED: MIDAZOLAM HCL/PF 2 MG/2 ML VIAL. ONE ×2 (10:56→11:36)
[2021-03-15] MEDS ORDERED: LIDOCAINE 2%/EPI 1:100,000 20 ML VIAL. ONE (11:22)
[2021-03-15] MEDS: AMOXICILLIN/K CLAV 875/125MG TABLET. PO SCH ×2 (12:00→21:34)
[2021-03-15] MEDS ORDERED: ceFAZolin 2GM PREMIX 2 GM/50 ML BAG IV ONE (12:00)
[2021-03-15] MEDS ORDERED: fentaNYL PF VIAL 100 MCG/2 ML VIAL IV ONE (12:15)
[2021-03-15] MEDS ORDERED: MIDAZOLAM HCL/PF 2 MG/2 ML VIAL. IV ONE (12:15)
[2021-03-15] MEDS ORDERED: LIDOCAINE 2%/EPI 1:100,000 20 ML VIAL. IJ ONE (12:15)
--- NOTE | 2021-03-15 12:18 | NUR ---
SS following up with discharge planning. SS reviewed pt chart and discussed with pt RN. Pt is currently on room air. COVID19 negative. Pt on PO Augmentin. Pacemaker placement today. PT/OT recommended retirement unit on 03/12/2021. Pt's family requesting to go to [facility], ; fax [phone]. Pt needing updated PT/OT notes for referral. SS will continue to follow for discharge planning.
--- NOTE | 2021-03-15 12:57 | PDOC ---
MODERATE SEDATION ASSESSMENT RISKS/ALTERNATIVES Risks/Alternatives Risks and alternatives of this type of sedation and procedure discussed with: RISK/ALTERNATIVES: Patient H & P ON CHART H & P H & P on chart and reviewed for co-morbid conditions and appropriate labs. H&P ON CHART: Yes STATUS PREG STATUS ASSESSED: N/A MEDS/ALLERGIES REVIEWED Meds/Allergies Reviewed Medications and Allergies including time and route of recently administered narcotics and sedatives. MEDS/ALLERGIES REVIEWED: Yes ASA RATING ASA RATING: III AIRWAY ASSESSMENT Airway Assessment Airway patency, oral function limitations, presence of caps, crowns, dentures, partials, and ability to extend neck assessed. AIRWAY ASSESSMENT: Yes MALLAMPATI SCORE MALLAMPATI SCORE: II PRE-SEDATION ASSESSMENT PRE-SEDATION ASSESSMENT: Yes ELY TOLEDO MD Mar 15, 2021 12:57
[2021-03-15] MEDS ORDERED: DIGOXIN IV 500 MCG/2 ML AMPUL. IV ONE (13:00)
--- NOTE | 2021-03-15 13:24 | CARD ---
MR#: [id number] Date of Study: 03/15/2021 Ordering Physician: ELY MACHADO, Referring Physician: ELY MACHADO, Tech: APPROVED REPORT HISTORY MODERATE SEDATION TIME: 75 MINUTES FLUORO TIME: 3.0 MIN DOSE: 10.1 GYCM2 PROCEDURES Successful implantation of Biotronik dual-chamber permanent pacemaker INDICATIONS Sick sinus syndrome, tachycardia-bradycardia syndrome PROCEDURE After explaining the risks, benefits, and alternative options, informed consent was obtained from the patient. The patient was brought to the cardiac catheterization lab and the left chest and shoulder were prepp ed and draped in a sterile manner. IV conscious sedation was used throughout procedure with appropriate monitoring and was performed in the presence of a registered nurse who was an independent trained observer other than the physician p erforming the procedure. During this case, Fluoroscopy and low osmolar contrast were used for imaging. Specimen(s) Removed: No Estimated Blood loss: 10 cc's. 30 cc of 2% lidocaine was infiltrated into the skin and subcutaneous tissues for local anesthesia. A n incision was made over the left infraclavicular fossa and using blunt dissection and cautery, a poc ket was created. Venous access was obtained in the left subclavian vein and 6 and 8 English sheaths i nserted. A Biotronik bipolar active fixation right ventricular lead model Solia, serial #[id number] was advanc ed under fluoroscopic guidance and the tip was positioned in the right ventricular apex. Following t his, a Biotronik bipolar active fixation right atrial lead model Solia, serial #[id number] was positi oned in the right atrial appendage under fluoroscopic guidance. The leads were secured into place an d were attached to a Biotronik dual-chamber permanent pacemaker generator model Edora 8 DR-T, serial #[id number]. This was placed in the pocket that was subsequently closed in 3 layers. Hemostasis was s ecured. The right ventricular lead showed a sensing amplitude of 18 mV, impedance of 680 ohms and a threshold of 0.6 V. The right atrial lead showed a sensing amplitude of 1.2 mV, impedance of 420 ohms. Thres holds could not be measured since patient was in atrial fibrillation. Patient tolerated the procedur e well. There were no immediate complications. 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 Signed by : Ely Machado, Electronically Approved : 03/15/2021 13:23:58
--- NOTE | 2021-03-15 13:53 | RAD ---
AP chest. HISTORY: Pacemaker placement AP view was taken of the chest. There is a left pacemaker with atrial and ventricular pacing leads. T here is no pneumothorax. There is no effusion. There is mild basilar atelectasis similar to the prior study. There is a stimulating lead in the spinal canal. There is arthritis in both shoulders. IMPRESSION: 1. Left pacemaker. 2. No pneumothorax. Electronically signed by: Zachery Cadena MD (03/15/2021 1:50 PM) [facility]
[2021-03-15] MEDS ORDERED: METOPROLOL IV PUSH 5 MG/5 ML VIAL. IVP PRN (15:30)
[2021-03-15] MEDS: CLOPIDOGREL BISULFATE 75 MG TABLET PO SCH (15:33)
[2021-03-15] MEDS: ACETAMINOPHEN 325 MG TABLET. PO PRN ×2 (15:34→22:54)
[2021-03-15] MEDS: METOPROLOL TART IMMED RELEASE 25 MG TABLET. PO SCH ×2 (17:00→21:35)
--- NOTE | 2021-03-15 18:01 | NUR ---
Tele is being monitored by social services manager Gregory who stated patient post op was having some Afib with RVR episodes. It was also noted that he was starting to spike a temp with this RNs assessment showing it as 100.8 orally. Sukhjinder Sanchez paged and aware with orders given. Carter also on the floor and was notified who stated that if the metoprolol does not regulate the pulse to start the patient on a cardizem drip if needed. Will relay information to oncoming shift. At this time the patients pulse and BP are remaining stable after one dose of PRN metoprolol and patients PO metoprolol was given as well per cardiologies instructions. Will continue to monitor and relay to oncoming shift.
[2021-03-15] MEDS ORDERED: POTASSIUM CHLORIDE 20 MEQ TABLET.ER. PO ONE ×2 (21:15→21:45)
[2021-03-15] MEDS: ATORVASTATIN CALCIUM 40 MG TABLET. PO SCH (21:36)
[2021-03-16 03:16] VITALS: BP 120/75
[2021-03-16] MEDS: IV 1/2 NORMAL SALINE 1,000 ML IV SCH (05:43)
[2021-03-16 07:00] VITALS: BP 118/58
[2021-03-16] MEDS: ABIRATERONE ACETATE PO SCH (07:30)
[2021-03-16 07:32] LABS: BASO # 0.1 x10^3/uL (0.0-0.2); BASO % 1 % (0-3); EOS % 0 % (0-3); HEMATOCRIT 30.5 % (39.0-53.0); HEMOGLOBIN 9.7 g/dL (13.0-17.5); LYMPH # 0.8 x10^3/uL (1.0-4.8); LYMPH % 7 % (24-48); MEAN CORPUSCULAR HEMOGLOBIN 28 pg (25-35); MEAN CORPUSCULAR HGB CONC 32 g/dL (31-37); MEAN CORPUSCULAR VOLUME 87 fL (79-100); MONO # 0.8 x10^3/uL (0.0-1.1); MONO % 8 % (0-9); NEUT # 9.1 x10^3/uL (1.8-7.7); NEUT % 84 % (31-73); PLATELET COUNT 471 x10^3/uL (140-400); RED BLOOD COUNT 3.52 x10^6/uL (4.30-5.70); RED CELL DISTRIBUTION WIDTH 15.7 % (11.5-14.5); WHITE BLOOD COUNT 10.7 x10^3/uL (4.0-11.0)
--- NOTE | 2021-03-16 07:42 | RAD ---
EXAM: AP View of the chest DATE: 03/16/2021 6:55 AM INDICATION: Reason: 1 day post pacemaker implantation / Spl. Instructions: / History: COMPARISON: 03/15/2021 FINDINGS: Heart is not enlarged. Atherosclerotic calcifications of aorta are seen. Cardiac generator pack obscu res a portion of the left chest with leads in stable position. Minimal basilar opacities likely atelectasis. No pleural effusion or pneumothorax. IMPRESSION: 1. Stable appearance of the left pacemaker without evidence for pneumothorax. Electronically signed by: Bigg Lowe MD (03/16/2021 7:39 AM) [facility]
[2021-03-16 08:03] LABS: CALCIUM 7.9 mg/dL (8.5-10.1); CREATININE 0.8 mg/dL (0.7-1.3); POTASSIUM 3.8 mmol/L (3.5-5.1)
[2021-03-16] MEDS: APIXABAN 5 MG TABLET. PO SCH ×2 (09:00→21:14)
--- NOTE | 2021-03-16 09:09 | PDOC ---
[employer] PROGRESS NOTE Date of Service DOS: DATE: 03/16/21 TIME: 09:07 Chief Complaint Chief Complaint NSTEMI Atypical chest pain Community-acquired pneumonia, possibly gram-negative or possibly gram-positive organism A. fib/a flutter SSS s/p implantation of Biotronik dual-chamber permanent pacemaker History of metastatic prostate cancer History of Present Illness History of Present Illness HPI: Patient is an 80-year-old white male was brought into the EMS overnight due to 4-day history of mid substernal chest pain. Says the pain started 4 days ago and at that point as it was not bothering her he just noticed that however last night he noticed it was getting much worse decided present. Describes the pain as more pleuritic than a crushing chest pain denies any recent illnesses. Denies any sort of cardiac history. He does report a history of prostate cancer currently in remission, he does have a lot of back pain from this. On presentation emergency room was found to have elevated troponin and some ST changes on his EKG thus heparin drip started cardiology consulted troponins trended overnight appear to have peaked. Given pleuritic nature of chest pain will perform CTA of the chest. Continue heparin drip. 03/10 Patient evaluated and examined at bedside. CTA performed yesterday negative for PE. Discussed with cardiology team today and agree that his chest pain sounds much more like pleurisy. Either way cardiology planning for cath today. Patient agreeable. Continue antibiotics. Will follow up after cath. 03/11: Patient had left heart cath yesterday that showed 100% occlusion of a small to medium caliber obtuse marginal branch of left circumflex artery, normal left ventricle systolic function with ejection fraction estimated at 55%. Due to his late presentation of NSTEMI and culprit vessel being small to medium caliber obtuse marginal branch, he was recommended medical management. Will discontinue IV Unasyn and place on Augmentin. Obtain morning procalcitonin. Continue Eliquis and IV amiodarone, per cardiology. Patient with complaint of right lower extremity pain and weakness today. Reports pain in his right knee and right ankle with movement; also notes pain in his lumbar spine when he lays supine. He does admit to history of lumbar spinal due to his history of lumbar spinal stenosis, denies any prior history of similar right knee or right ankle pain. Febrile this afternoon with T-max 101.5 F. Given history of lumbar spinal stenosis, will obtain CT lumbar spine. Will obtain influenza A & B, blood cultures. 03/12: Febrile overnight, T-max 101.7F. Given persistent fever will repeat COVID-19 testing and broaden antibiotic coverage with Zosyn; continue doxycycline to cover for atypical organisms. Influenza A&B negative; UA, MRSA PCR, and blood cultures pending, although patient has being on antibiotics since 03/09. Will obtain right knee and right ankle x-ray, as well as CT lumbar spine today. Per cardiology, continue amiodarone infusion for A. fib/flutter paroxysms; stop beta-evy due to significant pauses and concern for SSS. Continue Eliquis for stroke prophylaxis. Hypokalemia and hypomagnesemia noted today, will replace. Is curious why he has not been getting his home prednisone; he takes for his back pain related to his history of prostate cancer . Resume home prednisone. 03/13: Afebrile today. Patient states he feels well. and family have some concerns about his right lower extremity pain and mobility. X-ray showed extensive osteoarthritis, but no fractures or new concerning findings. Patient admits to some worsening swelling in his knee and foot for the past several months prior to admission. Discussed with family that these could be consistent with worsening osteoarthritis as well. would like to speak with social contact worker to see if it would be possible to have him transferred to or [facility] where his bean sn[facility] is located. Continue treatment with IV antibiotics. 03/14: Afebrile overnight, still breathing on 2 L nasal cannula. Had ultrasound yesterday of right lower extremity was negative for DVT. Potassium remains persistently low secondary to diarrhea. Still with complaint of right knee immobility. X-ray suggestive of severe osteoarthritis. Consulted Dr. Cervantes and we evaluated the patient together bedside. Patient's mobility has improved. Right knee joint injection planned for today, per Dr. Cervantes. Will also obtain CT of right ankle. Will obtain uric acid to evaluate possible gout. MRSA screen negative, will discontinue vancomycin. PT notes recommending SNU. Will continue treatment of pneumonia with IV antibiotics. Continue medical management of CAD, per cardiology. 03/15: Afebrile, breathing on room air. States he is feeling better, but just complained of some chest congestion. Denies any further diarrhea. Denies any nausea or vomiting. He is to have pacemaker placed today. Will likely transition to p.o. antibiotics tomorrow. Physical therapy recommending SNU, but anxious to go to the hospital. Had knee injection yesterday with slight improvement in pain. Depending on physical therapy course, anticipate discharge soon with home health or SNU. 03/16: Patient febrile overnight with T-max 100.8 F. Breathing comfortably on room air. Blood cultures still with no growth to date. WBC 10.1. Had successful implantation of Biotronik dual-chamber permanent pacemaker yesterday for SSS. Due to concerns of recurrent fever will resume Zosyn and vancomycin treatment for pneumonia. Atelectasis is seen on chest x-ray, which could also explain fever. Will have patient work with PT/OT and reevaluate for SNU. Vitals/I&O Vitals/I&O: Vital Signs Date Time Temp Pulse Resp B/P (MAP) Pulse Ox O2 Delivery O2 Flow Rate FiO2 03/16/21 07:00 98.0 116 18 118/58 (78) 96 Room Air 98.0 03/15/21 19:42 2.0 I & O 03/15/21 03/15/21 03/16/21 15:00 23:00 07:00 Intake Total 1210 ml Output Total 500 ml 350 ml Balance -500 ml 860 ml Physical Exam General: Alert, Oriented X3, Cooperative, No acute distress Heart: Regular rate Lungs: Crackles Abdomen: Soft Extremities: Other (Mild edema to right foot and right knee) Skin: No rashes, No breakdown Labs Labs: Laboratory Tests Test 03/15/21 09:20 03/16/21 05:35 White Blood Count 9.7 x10^3/uL (4.0-11.0) 10.7 x10^3/uL (4.0-11.0) Red Blood Count 3.16 x10^6/uL (4.30-5.70) 3.52 x10^6/uL (4.30-5.70) Hemoglobin 9.1 g/dL (13.0-17.5) 9.7 g/dL (13.0-17.5) Hematocrit 27.0 % (39.0-53.0) 30.5 % (39.0-53.0) Mean Corpuscular Volume 85 fL (79-100) 87 fL (79-100) Mean Corpuscular Hemoglobin 29 pg (25-35) 28 pg (25-35) Mean Corpuscular Hemoglobin Concent 34 g/dL (31-37) 32 g/dL (31-37) Red Cell Distribution Width 15.7 % (11.5-14.5) 15.7 % (11.5-14.5) Platelet Count 440 x10^3/uL (140-400) 471 x10^3/uL (140-400) Neutrophils (%) (Auto) 83 % (31-73) 84 % (31-73) Lymphocytes (%) (Auto) 8 % (24-48) 7 % (24-48) Monocytes (%) (Auto) 7 % (0-9) 8 % (0-9) Eosinophils (%) (Auto) 0 % (0-3) 0 % (0-3) Basophils (%) (Auto) 1 % (0-3) 1 % (0-3) Neutrophils # (Auto) 8.1 x10^3/uL (1.8-7.7) 9.1 x10^3/uL (1.8-7.7) Lymphocytes # (Auto) 0.8 x10^3/uL (1.0-4.8) 0.8 x10^3/uL (1.0-4.8) Monocytes # (Auto) 0.7 x10^3/uL (0.0-1.1) 0.8 x10^3/uL (0.0-1.1) Eosinophils # (Auto) 0.0 x10^3/uL (0.0-0.7) 0.0 x10^3/uL (0.0-0.7) Basophils # (Auto) 0.1 x10^3/uL (0.0-0.2) 0.1 x10^3/uL (0.0-0.2) Sodium Level 140 mmol/L (136-145) 139 mmol/L (136-145) Potassium Level 3.1 mmol/L (3.5-5.1) 3.8 mmol/L (3.5-5.1) Chloride Level 106 mmol/L (98-107) 104 mmol/L (98-107) Carbon Dioxide Level 26 mmol/L (21-32) 24 mmol/L (21-32) Anion Gap 8 (6-14) 11 (6-14) Blood Urea Nitrogen 6 mg/dL (8-26) 7 mg/dL (8-26) Creatinine 1.0 mg/dL (0.7-1.3) 0.8 mg/dL (0.7-1.3) Estimated GFR (Cockcroft-Gault) 71.9 93.0 Glucose Level 97 mg/dL (70-99) 94 mg/dL (70-99) Calcium Level 7.9 mg/dL (8.5-10.1) 7.9 mg/dL (8.5-10.1) Magnesium Level 1.6 mg/dL (1.8-2.4) Assessment and Plan Assessmemt and Plan Problems Medical Problems: (1) ACS (acute coronary syndrome) Status: Acute Comment Review of Relevant I have reviewed the following items lindy (where applicable) has been applied. Medications: Current Medications Medications (Trade) Dose Ordered Sig/Juan Route PRN Reason Start Time Stop Time Status Last Admin Dose Admin Clopidogrel Bisulfate (Plavix) 75 mg [id number] PO 03/15/21 16:00 03/15/21 15:33 Daptomycin 500 mg/ Sodium Chloride 50 ml @ 100 mls/hr 1X ONCE IV 03/15/21 10:00 03/15/21 10:29 DC 03/15/21 12:29 Amoxicillin/ Clavulanate Potassium (Augmentin 875/ 125mg) 1 tab BID PO 03/15/21 12:00 03/16/21 09:04 DC 03/15/21 21:34 Midazolam HCl (Versed) 2 mg 1X ONCE IV 03/15/21 12:15 03/15/21 12:16 DC 03/15/21 12:31 Fentanyl Citrate (Fentanyl 2ml Vial) 100 mcg 1X ONCE IV 03/15/21 12:15 03/15/21 12:16 DC 03/15/21 12:32 Lidocaine/ Epinephrine (LIDOCAINE 2%-EPI 1:100,000 multi-dose) 20 ml 1X ONCE IJ 03/15/21 12:15 03/15/21 12:16 DC 03/15/21 12:31 Digoxin (Lanoxin) 500 mcg 1X ONCE IV 03/15/21 13:00 03/15/21 13:03 DC 03/15/21 13:32 Metoprolol Tartrate (Lopressor) 25 mg BID PO 03/15/21 16:45 03/15/21 21:35 Metoprolol Tartrate (Lopressor Vial) 5 mg PRN Q6HRS PRN IVP HYPERTENSION 03/15/21 15:30 03/15/21 15:35 Potassium Chloride (Klor-Con) 40 meq 1X ONCE PO 03/15/21 21:15 03/15/21 21:16 DC 03/15/21 21:34 Potassium Chloride (Klor-Con) 40 meq 1X ONCE PO 03/15/21 21:45 03/15/21 21:46 DC 03/15/21 22:46 Justifications for Admission Other Justification TEOFILO TOUSSAINT MD Mar 16, 2021 09:09
[2021-03-16] MEDS ORDERED: PIP/TAZO PER PHARMACY MC PRN (09:15)
[2021-03-16] MEDS: MEMANTINE 5 MG TABLET. PO SCH ×2 (09:39→21:15)
[2021-03-16] MEDS: NITROGLYCERIN 0.4MG/HR PATCH. TD SCH (09:39)
[2021-03-16] MEDS: ACETAMINOPHEN 325 MG TABLET. PO PRN ×2 (09:39→18:41)
[2021-03-16] MEDS: SENNOSIDES/DOCUSATE 8.6/50MG TABLET. PO SCH ×2 (09:40→21:15)
[2021-03-16] MEDS: CLOPIDOGREL BISULFATE 75 MG TABLET PO SCH (09:40)
[2021-03-16] MEDS: CHOLECALCIFEROL (VITAMIN D3) 1,000 UNIT TABLET PO SCH (09:40)
[2021-03-16] MEDS: PANTOPRAZOLE 40 MG TABLET.DR. PO SCH (09:40)
[2021-03-16] MEDS: CYANOCOBALAMIN (VITAMIN B-12) 1,000 MCG TABLET. PO SCH (09:40)
[2021-03-16] MEDS: ASPIRIN ENTERIC COATED 81 MG TABLET.DR. PO SCH (09:40)
[2021-03-16] MEDS: guaiFENesin DM 600/30MG 1 TAB TAB.ER.12H PO SCH ×2 (09:40→21:15)
[2021-03-16] MEDS: predniSONE 5 MG TABLET PO SCH ×2 (09:40→21:14)
[2021-03-16] MEDS: METOPROLOL TART IMMED RELEASE 25 MG TABLET. PO SCH ×3 (09:41→21:18)
[2021-03-16] MEDS: MEGESTROL 20 MG TABLET. PO SCH ×2 (09:42→21:14)
[2021-03-16] MEDS: AMIODARONE HCL 200 MG TABLET. PO SCH (09:42)
--- NOTE | 2021-03-16 09:53 | NUR ---
Pharmacy Vancomycin Dosing Note S:Consulted to monitor and dose vancomycin started 03/13/21. O:SAMANTHA CAMPBELL is a 80 year old M with Pneumonia . Height: 5 feet, 10 inches Weight: 96.0 kg [place] Body Weight: 73.00 Adjusted Body Weight: 81.64 Dosing Weight: Actual Other Antibiotics: zosyn LABS: Last BUN: 7 Last Creatinine: 1 Creatinine Clearance: 68 mL/min Last WBC: 11.9 Last Procalcitonin: 0.22 Tmax (past 24 hours): 101.2 Microbiology: 03/11 blood cx: NGTD I/O: 939 /570 Drug Levels: Last level: on at Last dose given 03/13/21 at 0819 Vancomycin Dosing: Loading Dose: 2000 mg x1 Dosing Weight: Actual Target Trough: 15-20 A: Based on previous orders: P: 1. Restart Vancomycin 2000mg, followed by Vancomycin 1500 mg IV q12h. 2. Follow up Trough level on 03/14/21 at 2230. 3. Pharmacy will continue to monitor, follow and adjust therapy as needed. Jaylan Rivero [facility], 03/16/21 0902
[2021-03-16 10:00] VITALS: BP 116/75
--- NOTE | 2021-03-16 10:46 | PDOC ---
PROGRESS NOTES Date of Service DATE: 03/16/21 TIME: 10:43 Subjective Subjective No new complaints. 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 Assessment Assessment Problems Medical Problems: (1) ACS (acute coronary syndrome) Status: Acute Plan Plan of Care To get him up as tolerated and to consider injecting his right shoulder joint if right shoulder pain is irritating. Comment Review of Relevant I have reviewed the following items lindy (where applicable) has been applied. Labs Laboratory Tests Test 03/15/21 09:20 03/16/21 05:35 White Blood Count 9.7 x10^3/uL (4.0-11.0) 10.7 x10^3/uL (4.0-11.0) Red Blood Count 3.16 x10^6/uL (4.30-5.70) 3.52 x10^6/uL (4.30-5.70) Hemoglobin 9.1 g/dL (13.0-17.5) 9.7 g/dL (13.0-17.5) Hematocrit 27.0 % (39.0-53.0) 30.5 % (39.0-53.0) Mean Corpuscular Volume 85 fL (79-100) 87 fL (79-100) Mean Corpuscular Hemoglobin 29 pg (25-35) 28 pg (25-35) Mean Corpuscular Hemoglobin Concent 34 g/dL (31-37) 32 g/dL (31-37) Red Cell Distribution Width 15.7 % (11.5-14.5) 15.7 % (11.5-14.5) Platelet Count 440 x10^3/uL (140-400) 471 x10^3/uL (140-400) Neutrophils (%) (Auto) 83 % (31-73) 84 % (31-73) Lymphocytes (%) (Auto) 8 % (24-48) 7 % (24-48) Monocytes (%) (Auto) 7 % (0-9) 8 % (0-9) Eosinophils (%) (Auto) 0 % (0-3) 0 % (0-3) Basophils (%) (Auto) 1 % (0-3) 1 % (0-3) Neutrophils # (Auto) 8.1 x10^3/uL (1.8-7.7) 9.1 x10^3/uL (1.8-7.7) Lymphocytes # (Auto) 0.8 x10^3/uL (1.0-4.8) 0.8 x10^3/uL (1.0-4.8) Monocytes # (Auto) 0.7 x10^3/uL (0.0-1.1) 0.8 x10^3/uL (0.0-1.1) Eosinophils # (Auto) 0.0 x10^3/uL (0.0-0.7) 0.0 x10^3/uL (0.0-0.7) Basophils # (Auto) 0.1 x10^3/uL (0.0-0.2) 0.1 x10^3/uL (0.0-0.2) Sodium Level 140 mmol/L (136-145) 139 mmol/L (136-145) Potassium Level 3.1 mmol/L (3.5-5.1) 3.8 mmol/L (3.5-5.1) Chloride Level 106 mmol/L (98-107) 104 mmol/L (98-107) Carbon Dioxide Level 26 mmol/L (21-32) 24 mmol/L (21-32) Anion Gap 8 (6-14) 11 (6-14) Blood Urea Nitrogen 6 mg/dL (8-26) 7 mg/dL (8-26) Creatinine 1.0 mg/dL (0.7-1.3) 0.8 mg/dL (0.7-1.3) Estimated GFR (Cockcroft-Gault) 71.9 93.0 Glucose Level 97 mg/dL (70-99) 94 mg/dL (70-99) Calcium Level 7.9 mg/dL (8.5-10.1) 7.9 mg/dL (8.5-10.1) Magnesium Level 1.6 mg/dL (1.8-2.4) Laboratory Tests Test 03/16/21 05:35 White Blood Count 10.7 x10^3/uL (4.0-11.0) Red Blood Count 3.52 x10^6/uL (4.30-5.70) Hemoglobin 9.7 g/dL (13.0-17.5) Hematocrit 30.5 % (39.0-53.0) Mean Corpuscular Volume 87 fL (79-100) Mean Corpuscular Hemoglobin 28 pg (25-35) Mean Corpuscular Hemoglobin Concent 32 g/dL (31-37) Red Cell Distribution Width 15.7 % (11.5-14.5) Platelet Count 471 x10^3/uL (140-400) Neutrophils (%) (Auto) 84 % (31-73) Lymphocytes (%) (Auto) 7 % (24-48) Monocytes (%) (Auto) 8 % (0-9) Eosinophils (%) (Auto) 0 % (0-3) Basophils (%) (Auto) 1 % (0-3) Neutrophils # (Auto) 9.1 x10^3/uL (1.8-7.7) Lymphocytes # (Auto) 0.8 x10^3/uL (1.0-4.8) Monocytes # (Auto) 0.8 x10^3/uL (0.0-1.1) Eosinophils # (Auto) 0.0 x10^3/uL (0.0-0.7) Basophils # (Auto) 0.1 x10^3/uL (0.0-0.2) Sodium Level 139 mmol/L (136-145) Potassium Level 3.8 mmol/L (3.5-5.1) Chloride Level 104 mmol/L (98-107) Carbon Dioxide Level 24 mmol/L (21-32) Anion Gap 11 (6-14) Blood Urea Nitrogen 7 mg/dL (8-26) Creatinine 0.8 mg/dL (0.7-1.3) Estimated GFR (Cockcroft-Gault) 93.0 Glucose Level 94 mg/dL (70-99) Calcium Level 7.9 mg/dL (8.5-10.1) Magnesium Level 1.6 mg/dL (1.8-2.4) Microbiology 03/11/21 Blood Culture - Preliminary, Resulted NO GROWTH AFTER 4 DAYS Medications Current Medications Heparin Sodium (Porcine) (Heparin Sodium) 4,000 unit 1X ONCE IV Last administered on 03/08/21at 21:37; Start 03/08/21 at 21:30; Stop 03/08/21 at 21:31; Status DC Heparin Sodium/ Dextrose 250 ml @ 0 mls/hr 1X ONCE IV ; Start 03/08/21 at 21:00; Stop 03/08/21 at 21:01; Status UNV Fentanyl Citrate (Fentanyl 2ml Vial) 50 mcg 1X ONCE IVP Last administered on 03/08/21at 21:41; Start 03/08/21 at 21:00; Stop 03/08/21 at 21:21; Status DC Heparin Sodium/ Dextrose 250 ml @ 10 mls/hr CONT PRN IV PER PROTOCOL Last administered on 03/09/21at 17:52; Start 03/08/21 at 21:30; Stop 03/10/21 at 09:37; Status DC Heparin Sodium (Porcine) (Heparin Sodium) 2,250 unit PRN Q6HRS PRN IV FOR UFH LEVEL LESS THAN 0.2 Last administered on 03/10/21at 06:46; Start 03/08/21 at 21:30; Stop 03/10/21 at 09:37; Status DC Info (Anti-Coagulation Monitoring By Pharmacy) 1 each PRN DAILY PRN MC PER PROTOCOL Last administered on 03/09/21at 11:56; Start 03/08/21 at 21:30; Stop 03/10/21 at 14:51; Status DC Potassium Chloride (Klor-Con) 40 meq 1X ONCE PO Last administered on 03/08/21at 22:22; Start 03/08/21 at 22:00; Stop 03/08/21 at 22:01; Status DC Magnesium Sulfate/ Dextrose 100 ml @ 100 mls/hr 1X ONCE IV Last administered on 03/08/21at 22:23; Start 03/08/21 at 22:00; Stop 03/08/21 at 22:59; Status DC Potassium Chloride/Water 100 ml @ 50 mls/hr 1X ONCE IV ; Start 03/08/21 at 21:45; Stop 03/08/21 at 23:44; Status UNV Potassium Chloride/Water 100 ml @ 100 mls/hr Q1H IV Last administered on 03/09/21at 01:03; Start 03/08/21 at 22:00; Stop 03/08/21 at 23:59; Status DC Ondansetron HCl (Zofran) 4 mg PRN Q8HRS PRN IVP NAUSEA/VOMITING 1ST CHOICE; Start 03/08/21 at 22:30; Stop 03/09/21 at 11:45; Status DC Fentanyl Citrate (Fentanyl 2ml Vial) 50 mcg PRN Q2HRS PRN IVP CHEST PAIN Last administered on 03/09/21at 09:00; Start 03/08/21 at 22:30 Sodium Chloride 1,000 ml @ 75 mls/hr 1X ONCE IV Last administered on 03/09/21at 01:48; Start 03/08/21 at 23:00; Stop 03/09/21 at 12:19; Status DC Sodium Chloride 500 ml @ 500 mls/hr 1X ONCE IV Last administered on 03/08/21at 22:48; Start 03/08/21 at 23:00; Stop 03/08/21 at 23:59; Status DC Morphine Sulfate (Morphine Sulfate) 4 mg 1X ONCE IVP Last administered on 03/08/21at 22:47; Start 03/08/21 at 23:00; Stop 03/08/21 at 23:01; Status DC Vitamin D (Vitamin D3) 1,000 unit DAILY PO Last administered on 03/16/21at 09:40; Start 03/09/21 at 10:00 Cyanocobalamin (Vitamin B-12) 1,000 mcg DAILY PO Last administered on 03/16/21 09:40; Start 03/09/21 at 10:00 Memantine (Namenda) 5 mg BID PO Last administered on 03/16/21at 09:39; Start 03/09/21 at 10:00 Tramadol HCl (Ultram) 50 mg PRN BID PRN PO PAIN; Start 03/09/21 at 09:30; Stop 03/09/21 at 09:32; Status DC Megestrol Acetate (Megace) 40 mg BID PO Last administered on 03/16/21at 09:42; Start 03/09/21 at 10:00 Pantoprazole Sodium (Protonix) 40 mg DAILYAC PO Last administered on 03/16/21 09:40; Start 03/09/21 at 10:00 Tramadol HCl (Ultram) 50 mg PRN Q6HRS PRN PO PAIN Last administered on 03/14/21 21:19; Start 03/09/21 at 09:30 Ondansetron HCl (Zofran) 4 mg PRN Q6HRS PRN IVP NAUSEA/VOMITING; Start 03/09/21 at 09:45 Calcium Carbonate/ Glycine (Tums) 500 mg PRN Q3HRS PRN PO UPSET STOMACH; Start 03/09/21 at 09:45 Zolpidem Tartrate (Ambien) 5 mg PRN QHS PRN PO INSOMNIA, MAY REPEAT IN 1HR Last administered on 03/10/21 20:55; Start 03/09/21 at 09:45 Info (Non-Icu Electrolyte Protocol) 1 ea PRN DAILY PRN MC SEE COMMENTS; Start 03/09/21 at 09:45 Oxycodone HCl (Roxicodone) 5 mg PRN Q3HRS PRN PO BREAKTHROUGH PAIN Last admin istered on 03/09/21 20:50; Start 03/09/21 at 09:45 Acetaminophen (Tylenol) 650 mg PRN Q6HRS PRN PO Headaches, Temp > 101.5F Last administered on 03/16/21 09:39; Start 03/09/21 at 09:45 Senna/Docusate Sodium (Senna Plus) 1 tab BID PO Last administered on 03/16/21 09:40; Start 03/09/21 at 21:00 Iohexol (Omnipaque 350 Mg/ml) 90 ml 1X ONCE IV Last administered on 03/09/21 09:50; Start 03/09/21 at 09:45; Stop 03/09/21 at 09:46; Status DC Nitroglycerin (Nitro-Dur 0.4mg) 1 patch DAILY TD Last administered on 03/16/21 09:39; Start 03/09/21 at 10:00 Morphine Sulfate (Morphine Sulfate) 4 mg PRN Q2HR PRN IV PAIN Last administered on 03/09/21 20:51; Start 03/09/21 at 09:45 Non-Formulary Medication (Abiraterone Acetate (Zytiga)) 4 tab DAILYAC PO Last administered on 03/16/21at 07:30; Start 03/09/21 at 11:30 Doxycycline Hyclate (Vibra-Tab) 100 mg BID PO Last administered on 03/14/21at 21:19; Start 03/09/21 at 13:00; Stop 03/15/21 at 08:54; Status DC Ampicillin Sodium/ Sulbactam Sodium 1.5 gm/Sodium Chloride 50 ml @ 100 mls/hr Q6HRS IV Last administered on 03/11/21at 11:41; Start 03/09/21 at 14:00; Stop 03/11/21 at 14:52; Status DC Nitroglycerin (Nitrostat) 0.4 mg PRN Q5MIN PRN SL CHEST PAIN Last administered on 03/09/21at 18:04; Start 03/09/21 at 18:00 Nitroglycerin (Nitrostat) 0.4 mg STK-MED ONCE SL ; Start 03/09/21 at 18:02; Stop 03/09/21 at 18:02; Status DC Nitroglycerin/ Dextrose 250 ml @ 1.5 mls/hr CONT PRN IV SEE I/O RECORD Last administered on 03/09/21at 20:52; Start 03/09/21 at 18:30 Digoxin (Lanoxin) 500 mcg 1X ONCE IV Last administered on 03/10/21at 03:13; Start 03/10/21 at 03:30; Stop 03/10/21 at 03:31; Status DC Digoxin (Lanoxin) 250 mcg 1X ONCE IV Last administered on 03/10/21at 04:51; Start 03/10/21 at 05:00; Stop 03/10/21 at 05:01; Status DC Diltiazem HCl 125 mg/Sodium Chloride 125 ml @ 5 mls/hr CONT PRN IV PER PROTOCOL Last administered on 03/10/21at 06:13; Start 03/10/21 at 04:45; Stop 03/10/21 at 09:36; Status DC Iodixanol (Visipaque 320) 100 ml STK-MED ONCE .ROUTE ; Start 03/10/21 at 07:56; Stop 03/10/21 at 07:56; Status DC Lidocaine HCl (Xylocaine-Mpf 1% 2ml Vial) 2 ml STK-MED ONCE .ROUTE ; Start 03/10/21 at 07:56; Stop 03/10/21 at 07:56; Status DC Heparin Sodium/ Sodium Chloride 1,000 ml @ As Directed STK-MED ONCE .ROUTE ; Start 03/10/21 at 07:56; Stop 03/10/21 at 07:56; Status DC Fentanyl Citrate (Fentanyl 2ml Vial) 100 mcg STK-MED ONCE .ROUTE ; Start 03/10/21 at 08:10; Stop 03/10/21 at 08:10; Status DC Midazolam HCl (Versed) 2 mg STK-MED ONCE .ROUTE ; Start 03/10/21 at 08:10; Stop 03/10/21 at 08:11; Status DC Heparin Sodium (Porcine) (Heparin Sodium) 10,000 unit STK-MED ONCE .ROUTE ; Start 03/10/21 at 08:11; Stop 03/10/21 at 08:11; Status DC Verapamil HCl (Verapamil) 5 mg STK-MED ONCE .ROUTE ; Start 03/10/21 at 08:11; Stop 03/10/21 at 08:11; Status DC Nitroglycerin (Nitroglycerin) 200 mcg STK-MED ONCE .ROUTE ; Start 03/10/21 at 08:11; Stop 03/10/21 at 08:11; Status DC Nitroglycerin (Nitroglycerin) 200 mcg 1X ONCE IART Last administered on 03/21at 08:30; Start 03/10/21 at 08:30; Stop 03/10/21 at 08:31; Status DC Verapamil HCl (Verapamil) 2.5 mg 1X ONCE IART Last administered on 03/10/21at 08:30; Start 03/10/21 at 08:30; Stop 03/10/21 at 08:31; Status DC Heparin Sodium (Porcine) (Heparin Sodium) 2,500 unit 1X ONCE IART Last administered on 03/10/21at 08:30; Start 03/10/21 at 08:30; Stop 03/10/21 at 08:31; Status DC Heparin Sodium/ Sodium Chloride (HEPARIN for ARTERIAL LINE FLUSH) 1,000 unit 1X ONCE IART Last administered on 03/10/21at 08:30; Start 03/10/21 at 08:30; Stop 03/10/21 at 08:31; Status DC Midazolam HCl (Versed) 2 mg 1X ONCE IV Last administered on 03/10/21at 08:30; Start 03/10/21 at 08:30; Stop 03/10/21 at 08:31; Status DC Fentanyl Citrate (Fentanyl 2ml Vial) 100 mcg 1X ONCE IV Last administered on 03/10/21at 08:30; Start 03/10/21 at 08:30; Stop 03/10/21 at 08:31; Status DC Iodixanol (Visipaque 320) 100 ml 1X ONCE IART Last administered on 03/10/21at 08:30; Start 03/10/21 at 08:30; Stop 03/10/21 at 08:31; Status DC Lidocaine HCl (Xylocaine-Mpf 1% 2ml Vial) 2 ml 1X ONCE INJ Last administered on 03/10/21at 08:30; Start 03/10/21 at 08:30; Stop 03/10/21 at 08:31; Status DC Sodium Chloride 1,000 ml @ 75 mls/hr [id number] IV Last administered on 03/16/21a t 05:43; Start 03/10/21 at 09:45 Aspirin (Ecotrin) 325 mg DAILYWBKFT PO Last administered on 03/11/21at 08:44; Start 03/11/21 at 08:00; Stop 03/11/21 at 11:24; Status DC Clopidogrel Bisulfate (Plavix) 75 mg DAILYWBKFT PO Last administered on 03/14/21at 08:44; Start 03/11/21 at 08:00; Stop 03/14/21 at 15:06; Status DC Metoprolol Tartrate (Lopressor) 25 mg BID PO Last administered on 03/10/21at 20:56; Start 03/10/21 at 10:30; Stop 03/11/21 at 11:24; Status DC Atorvastatin Calcium (Lipitor) 40 mg QHS PO Last administered on 03/15/21at 21:36; Start 03/10/21 at 21:00 Clopidogrel Bisulfate (Plavix) 300 mg 1X ONCE PO Last administered on 03/10/21at 09:43; Start 03/10/21 at 09:45; Stop 03/10/21 at 09:46; Status DC Potassium Chloride (Klor-Con) 40 meq 1X ONCE PO Last administered on 03/10/21at 13:14; Start 03/10/21 at 13:00; Stop 03/10/21 at 13:01; Status DC Amiodarone HCl 150 mg/Dextrose 103 ml @ 600 mls/hr 1X ONCE IV Last administered on 03/11/21at 13:08; Start 03/11/21 at 11:30; Stop 03/11/21 at 11:40; Status DC Amiodarone HCl 450 mg/Dextrose 259 ml @ 0 mls/hr CONT PRN IV SEE I/O RECORD Last administered on 03/11/21at 22:44; Start 03/11/21 at 11:30; Stop 03/12/21 at 11:29; Status DC Apixaban (Eliquis) 5 mg BID PO Last administered on 03/14/21at 08:45; Start 03/11/21 at 12:00; Stop 03/14/21 at 15:06; Status DC Info (Anti-Coagulation Monitoring By Pharmacy) 1 each PRN DAILY PRN MC PER PROTOCOL; Start 03/11/21 at 11:45 Amoxicillin/ Clavulanate Potassium (Augmentin 875/ 125mg) 1 tab BID PO Last administered on 03/11/21at 21:52; Start 03/11/21 at 21:00; Stop 03/12/21 at 06:51; Status DC Potassium Chloride (Klor-Con) 40 meq 1X ONCE PO ; Start 03/11/21 at 17:00; Stop 03/11/21 at 17:01; Status UNV Piperacillin Sod/ Tazobactam Sod (Zosyn Per Pharmacy) 1 each PRN DAILY PRN MC SEE COMMENTS; Start 03/12/21 at 06:45; Stop 03/15/21 at 08:54; Status DC Piperacillin Sod/ Tazobactam Sod 4.5 gm/Sodium Chloride 100 ml @ 200 mls/hr Q8HRS IV Last administered on 03/13/21at 06:00; Start 03/12/21 at 07:00; Stop 03/13/21 at 07:16; Status DC Magnesium Sulfate/ Dextrose 100 ml @ 100 mls/hr 1X ONCE IV Last administered on 03/12/21at 11:51; Start 03/12/21 at 10:00; Stop 03/12/21 at 10:59; Status DC Potassium Chloride (Klor-Con) 40 meq 1X ONCE PO Last administered on 03/12/21at 09:37; Start 03/12/21 at 09:30; Stop 03/12/21 at 09:32; Status DC Prednisone (Prednisone) 5 mg BID PO Last administered on 03/16/21at 09:40; Start 03/12/21 at 12:00 Metoprolol Tartrate (Lopressor Vial) 5 mg 1X ONCE IVP Last administered on 03/12/21at 11:12; Start 03/12/21 at 11:00; Stop 03/12/21 at 11:04; Status DC Aspirin (Ecotrin) 81 mg DAILYWBKFT PO Last administered on 03/16/21at 09:40; Start 03/13/21 at 08:00 Amiodarone HCl (Cordarone) 200 mg DAILY PO Last administered on 03/16/21at 09:42; Start 03/12/21 at 16:00 Sodium Chloride 1,000 ml @ 100 mls/hr 1X ONCE IV Last administered on 03/12/21at 20:30; Start 03/12/21 at 19:30; Stop 03/13/21 at 05:29; Status DC Potassium Chloride (Klor-Con) 40 meq Q4H PO Last administered on 03/13/21at 08:20; Start 03/13/21 at 05:00; Stop 03/13/21 at 09:01; Status DC Piperacillin Sod/ Tazobactam Sod 4.5 gm/Sodium Chloride 100 ml @ 200 mls/hr Q6HRS IV Last administered on 03/15/21at 05:19; Start 03/13/21 at 12:00; Stop 03/15/21 at 08:54; Status DC Vancomycin HCl (Vanco Per Pharmacy) 1 each PRN DAILY PRN MC SEE COMMENTS Last administered on 03/13/21at 08:56; Start 03/13/21 at 08:00; Stop 03/14/21 at 06:14; Status DC Vancomycin HCl 2 gm/Sodium Chloride 500 ml @ 250 mls/hr 1X ONCE IV Last administered on 03/13/21at 08:19; Start 03/13/21 at 09:00; Stop 03/13/21 at 10:59; Status DC Vancomycin HCl 1.5 gm/Sodium Chloride 500 ml @ 250 mls/hr Q12H IV Last administered on 03/13/21at 22:03; Start 03/13/21 at 20:00; Stop 03/14/21 at 06:14; Status DC Vancomycin HCl (Vancomycin Trough Level) 1 each 1X ONCE MC ; Start 03/14/21 at 19:30; Stop 03/14/21 at 06:20; Status DC Potassium Chloride (Klor-Con) 20 meq 1X ONCE PO Last administered on 03/13/21at 22:03; Start 03/13/21 at 20:00; Stop 03/13/21 at 20:12; Status DC Methylprednisolone Acetate (DEPO-Medrol 40MG VIAL) 40 mg 1X ONCE IM Last administered on 03/14/21at 10:00; Start 03/14/21 at 10:00; Stop 03/14/21 at 10:01; Status DC Bupivacaine HCl (Sensorcaine-Mpf 0.25%) 10 ml 1X ONCE IJ Last administered on 03/14/21at 10:00; Start 03/14/21 at 10:00; Stop 03/14/21 at 10:01; Status DC Potassium Chloride (Klor-Con) 40 meq 1X ONCE PO Last administered on 03/14/21at 14:37; Start 03/14/21 at 10:45; Stop 03/14/21 at 10:46; Status DC Apixaban (Eliquis) 5 mg BID PO ; Start 03/16/21 at 09:00 Clopidogrel Bisulfate (Plavix) 75 mg DAILYWBKFT PO Last administered on 03/16/21at 09:40; Start 03/15/21 at 16:00 Cefazolin Sodium/ Dextrose 50 ml @ 100 mls/hr 1X ONCE IV ; Start 03/15/21 at 06:00; Stop 03/15/21 at 08:43; Status DC Daptomycin 500 mg/ Sodium Chloride 50 ml @ 100 mls/hr 1X ONCE IV Last administered on 03/15/21at 12:29; Start 03/15/21 at 10:00; Stop 03/15/21 at 10:29; Status DC Cefazolin Sodium 1 gm/Sodium Chloride 100 ml @ 600 mls/hr 1X ONCE IRR Last administered on 03/15/21at 12:28; Start 03/15/21 at 08:45; Stop 03/15/21 at 08:54; Status DC Guaifenesin (MUCINEX ER with DM) 1 tab BID PO Last administered on 03/16/21at 09:40; Start 03/15/21 at 09:00 Amoxicillin/ Clavulanate Potassium (Augmentin 875/ 125mg) 1 tab BID PO Last administered on 03/15/21at 21:34; Start 03/15/21 at 12:00; Stop 03/16/21 at 09:04; Status DC Midazolam HCl (Versed) 2 mg STK-MED ONCE .ROUTE ; Start 03/15/21 at 10:56; Stop 03/15/21 at 10:56; Status DC Fentanyl Citrate (Fentanyl 2ml Vial) 100 mcg STK-MED ONCE .ROUTE ; Start at 10:56; Stop 03/15/21 at 10:57; Status DC Lidocaine/ Epinephrine (LIDOCAINE 2%-EPI 1:100,000 multi-dose) 20 ml STK-MED ONCE .ROUTE ; Start 03/15/21 at 11:22; Stop 03/15/21 at 11:22; Status DC Midazolam HCl (Versed) 2 mg STK-MED ONCE .ROUTE ; Start 03/15/21 at 11:36; Stop 03/15/21 at 11:36; Status DC Midazolam HCl (Versed) 2 mg 1X ONCE IV Last administered on 03/15/21at 12:31; Start 03/15/21 at 12:15; Stop 03/15/21 at 12:16; Status DC Fentanyl Citrate (Fentanyl 2ml Vial) 100 mcg 1X ONCE IV Last administered on 03/15/21at 12:32; Start 03/15/21 at 12:15; Stop 03/15/21 at 12:16; Status DC Lidocaine/ Epinephrine (LIDOCAINE 2%-EPI 1:100,000 multi-dose) 20 ml 1X ONCE IJ Last administered on 03/15/21at 12:31; Start 03/15/21 at 12:15; Stop 03/15/21 at 12:16; Status DC Cefazolin Sodium/ Dextrose 50 ml @ 100 mls/hr 1X ONCE IV ; Start 03/15/21 at 13:15; Stop 03/15/21 at 13:44; Status UNV Digoxin (Lanoxin) 500 mcg 1X ONCE IV Last administered on 03/15/21at 13:32; Start 03/15/21 at 13:00; Stop 03/15/21 at 13:03; Status DC Metoprolol Tartrate (Lopressor) 25 mg BID PO Last administered on 03/16/21at 09:41; Start 03/15/21 at 16:45 Metoprolol Tartrate (Lopressor Vial) 5 mg PRN Q6HRS PRN IVP HYPERTENSION Last administered on 03/15/21at 15:35; Start 03/15/21 at 15:30 Potassium Chloride (Klor-Con) 40 meq 1X ONCE PO Last administered on 03/15/21at 21:34; Start 03/15/21 at 21:15; Stop 03/15/21 at 21:16; Status DC Potassium Chloride (Klor-Con) 40 meq 1X ONCE PO Last administered on 1 at 22:46; Start 03/15/21 at 21:45; Stop 03/15/21 at 21:46; Status DC Piperacillin Sod/ Tazobactam Sod (Zosyn Per Pharmacy) 1 each PRN DAILY PRN MC SEE COMMENTS; Start 03/16/21 at 09:15 Vancomycin HCl (Vanco Per Pharmacy) 1 each PRN DAILY PRN MC SEE COMMENTS; Start 03/16/21 at 09:15 Piperacillin Sod/ Tazobactam Sod 4.5 gm/Sodium Chloride 100 ml @ 200 mls/hr Q6HRS IV ; Start 03/16/21 at 10:00 Vancomycin HCl 2 gm/Sodium Chloride 500 ml @ 250 mls/hr 1X ONCE IV ; Start 03/16/21 at 11:00; Stop 03/16/21 at 12:59 Vancomycin HCl 1.5 gm/Sodium Chloride 500 ml @ 250 mls/hr Q12H IV ; Start 03/16/21 at 22:00 Vancomycin HCl (Vancomycin Trough Level) 1 each 1X ONCE MC ; Start 03/17/21 at 22:30; Stop 03/17/21 at 22:31 Active Scripts Active Reported Vitamin D3 (Vitamin D) 25 Mcg Tablet 25 Mcg PO DAILY 1,000 UNITS = 25 MCG B-12 (Cyanocobalamin (Vitamin B-12)) 1,000 Mcg Tablet 1,000 Mcg PO DAILY Folic Acid 0.4 Mg Tablet 1 Mg PO DAILY Tramadol Hcl 50 Mg Tablet 50 Mg PO PRN BID PRN Calcium Carbonate 650 Mg Tablet 2 Tab PO DAILY 30 Days Megestrol Acetate 40 Mg Tablet 40 Mg PO BID Namenda (Memantine Hcl) 10 Mg Tablet 5 Mg PO BID Omeprazole 20 Mg Capsule.dr 20 Mg PO DAILY Prednisone 2.5 Mg Tablet 5 Mg PO BID Zytiga (Abiraterone Acetate) 250 Mg Tablet 4 Tab PO DAILY 30 Days Vitals/I & O Vital Sign - Last 24 Hours 03/15/21 03/15/21 03/15/21 03/15/21 11:00 12:32 12:34 13:32 Temp 99.2 99.2 Pulse 132 115 115 Resp 18 21 17 B/P (MAP) 139/96 (110) 113/67 Pulse Ox 92 96 96 O2 Delivery Room Air Nasal Cannula Nasal Cannula O2 Flow Rate 2.0 2.0 03/15/21 03/15/21 03/15/21 03/15/21 15:00 15:10 15:35 17:00 Temp 99.5 100.8 99.5 100.8 Pulse 104 152 142 Resp 18 B/P (MAP) 110/68 (82) 117/69 Pulse Ox 94 O2 Delivery Room Air 03/15/21 03/15/21 03/15/21 03/15/21 17:40 19:42 20:00 21:35 Temp 98.6 98.6 Pulse 88 85 95 Resp 28 B/P (MAP) 93/65 (74) 111/67 (82) 119/70 Pulse Ox 95 O2 Delivery Nasal Cannula Room Air O2 Flow Rate 2.0 03/15/21 03/16/21 03/16/21 03/16/21 22:57 03:16 07:00 09:41 Temp 99.3 98.1 98.0 99.3 98.1 98.0 Pulse 97 93 116 116 Resp 18 18 18 B/P (MAP) 104/73 (83) 120/75 (90) 118/58 (78) 118/58 Pulse Ox 95 96 96 O2 Delivery Room Air Room Air Room Air 03/16/21 03/16/21 09:42 10:00 Temp 98.4 98.4 Pulse 116 127 Resp 18 B/P (MAP) 118/58 116/75 (89) Pulse Ox 96 O2 Delivery Room Air Intake and Output 03/15/21 03/15/21 03/16/21 15:00 23:00 07:00 Intake Total 1210 ml Output Total 500 ml 350 ml Balance -500 ml 860 ml Justifications for Admission Other Justification TAMI ANN MD Mar 16, 2021 10:46
[2021-03-16] MEDS: PIPERACILLIN/TAZOBACTAM 4.5 GM in IV NORMAL SALINE 100ML 100 ML IV SCH ×2 (10:59→18:42)
[2021-03-16] MEDS ORDERED: VANCOMYCIN 2 GM in IV NORMAL SALINE 500ML BAG 500 ML IV ONE (11:00)
[2021-03-16] MEDS: VANCOMYCIN PER PHARMACY MC PRN (13:35)
--- NOTE | 2021-03-16 14:47 | PDOC ---
CARDIOLOGY PROGRESS NOTE SUBJECTIVE: No acute events overnight. Denies any chest pain. He has some mild left incisional pain. No syncope. Remains in afib. OBJECTIVE: Vital Signs/I&O: Vital Signs Date Time Temp Pulse Resp B/P (MAP) Pulse Ox O2 Delivery O2 Flow Rate FiO2 03/16/21 10:00 98.4 127 18 116/75 (89) 96 Room Air 98.4 03/16/21 08:06 2.0 I & O 03/15/21 03/15/21 03/16/21 15:00 23:00 07:00 Intake Total 1210 ml Output Total 500 ml 350 ml Balance -500 ml 860 ml Objective: GEN.: No apparent distress. Alert and oriented. HEENT: Head is normocephalic, atraumatic NECK: Supple. LUNGS: Clear to auscultation. HEART: Irr irr, tachycardic, S1, S2 present. Peripheral pulses intact ABDOMEN: Soft, nontender. Positive bowel sounds. EXTREMITIES: Without any cyanosis. NEUROLOGIC: Normal speech, normal tone PSYCHIATRIC: Normal affect, normal mood. SKIN: No ulcerations. Left pacemaker site c/d/i. CURRENT MEDICATIONS: Eliquis 5mg p.o bid Metoprolol Tartrate 25mg p.o bid Plavix 75mg daily ASA 81mg daily Amiodarone 200mg daily Atorvastatin 40mg daily DIAGNOSTIC TESTING: Labs reviewed. Meds reviewed. Labs: Laboratory Tests 03/16/21 05:35 Laboratory Tests Test 03/16/21 05:35 White Blood Count 10.7 x10^3/uL (4.0-11.0) Red Blood Count 3.52 x10^6/uL (4.30-5.70) L Hemoglobin 9.7 g/dL (13.0-17.5) L Hematocrit 30.5 % (39.0-53.0) L Mean Corpuscular Volume 87 fL (79-100) Mean Corpuscular Hemoglobin 28 pg (25-35) Mean Corpuscular Hemoglobin Concent 32 g/dL (31-37) Red Cell Distribution Width 15.7 % (11.5-14.5) H Platelet Count 471 x10^3/uL (140-400) H Neutrophils (%) (Auto) 84 % (31-73) H Lymphocytes (%) (Auto) 7 % (24-48) L Monocytes (%) (Auto) 8 % (0-9) Eosinophils (%) (Auto) 0 % (0-3) Basophils (%) (Auto) 1 % (0-3) Neutrophils # (Auto) 9.1 x10^3/uL (1.8-7.7) H Lymphocytes # (Auto) 0.8 x10^3/uL (1.0-4.8) L Monocytes # (Auto) 0.8 x10^3/uL (0.0-1.1) Eosinophils # (Auto) 0.0 x10^3/uL (0.0-0.7) Basophils # (Auto) 0.1 x10^3/uL (0.0-0.2) Sodium Level 139 mmol/L (136-145) Potassium Level 3.8 mmol/L (3.5-5.1) Chloride Level 104 mmol/L (98-107) Carbon Dioxide Level 24 mmol/L (21-32) Anion Gap 11 (6-14) Blood Urea Nitrogen 7 mg/dL (8-26) L Creatinine 0.8 mg/dL (0.7-1.3) Estimated GFR (Cockcroft-Gault) 93.0 Glucose Level 94 mg/dL (70-99) Calcium Level 7.9 mg/dL (8.5-10.1) L ASSESSMENT: 1. Non-STEMI; trop peak 9 2. CAD; LHC showed 100% occlusion of small to medium caliber OM branch of LCX. Managed medically as this was late presentation, troponins were trending down, and his CP was atypical. LVEF preserved. CT chest negative for acute PE 3. PAFIB; on amiodarone gtt. continues to periods of AFIB with RVR intermittently. presently afib with RVR 4. SSS, tachybrady; sinus bradycardia and pause noted on scheduled metoprolol, but continue to have periods of AFIB with RVR despite metoprolol 4. Hyperlipidemia; statin 5. GERD 6. LE pain, weakness with h/o spinal stenosis. as per IM 7. Electrolyte abn. 8. Dyspnea with probable PNA. S/p recent COVID infection (01/19) 9. Fevers 10. Dementia 11. Thyroid nodule PLAN: 1. Will give additional dose of digoxin and IV amiodarone. 2. Increase Metoprolol to 75mg p.o bid 3. Continue eliquis and plavix. Stop asprin. Supportive care for now. We will follow along closely. Justicifation of Admission Dx: Justifications for Admission: Justification of Admission Dx: Yes CHF: Cardiac Arrhythmias VA: Acute NSTEMI GERARDO ADRIAN MD Mar 16, 2021 14:47
[2021-03-16 15:00] VITALS: BP 136/73
[2021-03-16] MEDS ORDERED: AMIODARONE 150 MG in IV DEXTROSE 5% 100ML 100 ML IV ONE (15:00)
[2021-03-16] MEDS ORDERED: DIGOXIN IV 500 MCG/2 ML AMPUL. IV ONE (15:00)
[2021-03-16 19:20] VITALS: BP 134/60
[2021-03-16] MEDS: VANCOMYCIN 1.5 GM in IV NORMAL SALINE 500ML BAG 500 ML IV SCH (21:14)
[2021-03-16] MEDS: ATORVASTATIN CALCIUM 40 MG TABLET. PO SCH (21:14)
[2021-03-16] MEDS: LACTOBACILLUS RHAMNOSUS GG 1 CAPSULE. PO SCH (21:14)
[2021-03-16 22:54] VITALS: BP 137/62
[2021-03-17] MEDS: PIPERACILLIN/TAZOBACTAM 4.5 GM in IV NORMAL SALINE 100ML 100 ML IV SCH ×4 (00:03→17:17)
[2021-03-17 02:46] VITALS: BP 111/58
[2021-03-17] MEDS: IV 1/2 NORMAL SALINE 1,000 ML IV SCH ×2 (04:26→15:05)
[2021-03-17 07:00] VITALS: BP 119/57
--- NOTE | 2021-03-17 07:17 | PDOC ---
[facility] PROGRESS NOTE Date of Service DOS: DATE: 03/17/21 TIME: 06:55 Chief Complaint Chief Complaint NSTEMI Atypical chest pain Community-acquired pneumonia, possibly gram-negative or possibly gram-positive organism A. fib/a flutter SSS s/p implantation of Biotronik dual-chamber permanent pacemaker History of metastatic prostate cancer History of Present Illness History of Present Illness HPI: Patient is an 80-year-old white male was brought into the EMS overnight due to 4-day history of mid substernal chest pain. Says the pain started 4 days ago and at that point as it was not bothering her he just noticed that however last night he noticed it was getting much worse decided present. Describes the pain as more pleuritic than a crushing chest pain denies any recent illnesses. Denies any sort of cardiac history. He does report a history of prostate cancer currently in remission, he does have a lot of back pain from this. On presentation emergency room was found to have elevated troponin and some ST changes on his EKG thus heparin drip started cardiology consulted troponins trended overnight appear to have peaked. Given pleuritic nature of chest pain will perform CTA of the chest. Continue heparin drip. 03/10 Patient evaluated and examined at bedside. CTA performed yesterday negative for PE. Discussed with cardiology team today and agree that his chest pain sounds much more like pleurisy. Either way cardiology planning for cath today. Patient agreeable. Continue antibiotics. Will follow up after cath. 03/11: Patient had left heart cath yesterday that showed 100% occlusion of a small to medium caliber obtuse marginal branch of left circumflex artery, normal left ventricle systolic function with ejection fraction estimated at 55%. Due to his late presentation of NSTEMI and culprit vessel being small to medium caliber obtuse marginal branch, he was recommended medical management. Will discontinue IV Unasyn and place on Augmentin. Obtain morning procalcitonin. Continue Eliquis and IV amiodarone, per cardiology. Patient with complaint of right lower extremity pain and weakness today. Reports pain in his right knee and right ankle with movement; also notes pain in his lumbar spine when he lays supine. He does admit to history of lumbar spinal due to his history of lumbar spinal stenosis, denies any prior history of similar right knee or right ankle pain. Febrile this afternoon with T-max 101.5 F. Given history of lumbar spinal stenosis, will obtain CT lumbar spine. Will obtain influenza A & B, blood cultures. 03/12: Febrile overnight, T-max 101.7F. Given persistent fever will repeat COVID-19 testing and broaden antibiotic coverage with Zosyn; continue doxycycline to cover for atypical organisms. Influenza A&B negative; UA, MRSA PCR, and blood cultures pending, although patient has being on antibiotics since 03/09. Will obtain right knee and right ankle x-ray, as well as CT lumbar spine today. Per cardiology, continue amiodarone infusion for A. fib/flutter paroxysms; stop beta-evy due to significant pauses and concern for SSS. Continue Eliquis for stroke prophylaxis. Hypokalemia and hypomagnesemia noted today, will replace. Is curious why he has not been getting his home prednisone; he takes for his back pain related to his history of prostate cancer . Resume home prednisone. 03/13: Afebrile today. Patient states he feels well. and family have some concerns about his right lower extremity pain and mobility. X-ray showed extensive osteoarthritis, but no fractures or new concerning findings. Patient admits to some worsening swelling in his knee and foot for the past several months prior to admission. Discussed with family that these could be consistent with worsening osteoarthritis as well. would like to speak with rn social services to see if it would be possible to have him transferred to or [facility] where his underwear hemmer is located. Continue treatment with IV antibiotics. 03/14: Afebrile overnight, still breathing on 2 L nasal cannula. Had ultrasound yesterday of right lower extremity was negative for DVT. Potassium remains persistently low secondary to diarrhea. Still with complaint of right knee immobility. X-ray suggestive of severe osteoarthritis. Consulted Dr. Cervantes and we evaluated the patient together bedside. Patient's mobility has improved. Right knee joint injection planned for today, per Dr. Cervantes. Will also obtain CT of right ankle. Will obtain uric acid to evaluate possible gout. MRSA screen negative, will discontinue vancomycin. PT notes recommending SNU. Will continue treatment of pneumonia with IV antibiotics. Continue medical management of CAD, per cardiology. 03/15: Afebrile, breathing on room air. States he is feeling better, but just complained of some chest congestion. Denies any further diarrhea. Denies any nausea or vomiting. He is to have pacemaker placed today. Will likely transition to p.o. antibiotics tomorrow. Physical therapy recommending SNU, but anxious to go to the hospital. Had knee injection yesterday with slight improvement in pain. Depending on physical therapy course, anticipate discharge soon with home health or SNU. 03/16: Patient febrile overnight with T-max 100.8 F. Breathing comfortably on room air. Blood cultures still with no growth to date. WBC 10.1. Had successful implantation of Biotronik dual-chamber permanent pacemaker yesterday for SSS. Due to concerns of recurrent fever will resume Zosyn and vancomycin treatment for pneumonia. Atelectasis is seen on chest x-ray, which could also explain fever. Will have patient work with PT/OT and reevaluate for SNU. 03/17: Afebrile overnight, on room air. Given additional dose of IV amiodarone and increased metoprolol to 75 mg twice daily due to continued A. fib. EKG this morning still appears to be in rate controlled A. fib. Per cardiology,continue Eliquis and Plavix, stop aspirin. Zosyn can change to p.o. Augmentin tomorrow if remains afebrile, and he may discharge this medication to complete outpatient regimen for pneumonia. Knee pain improved. PT/OT eval pending, however patient feels that he may be able to discharge home without rehab. Vitals/I&O Vitals/I&O: Vital Signs Date Time Temp Pulse Resp B/P (MAP) Pulse Ox O2 Delivery O2 Flow Rate FiO2 03/17/21 02:46 99.0 88 18 111/58 (75) 95 Room Air 99.0 03/16/21 08:06 2.0 I & O 03/16/21 03/16/21 03/17/21 15:00 23:00 07:00 Intake Total 300 ml 340 ml 0 ml Output Total 500 ml 300 ml 150 ml Balance -200 ml 40 ml -150 ml Physical Exam General: Alert, Oriented X3, Cooperative, No acute distress Heart: Regular rate Lungs: Crackles Abdomen: Soft Extremities: Other (Mild edema to right foot and right knee) Skin: No rashes, No breakdown Assessment and Plan Assessmemt and Plan Problems Medical Problems: (1) ACS (acute coronary syndrome) Status: Acute Comment Review of Relevant I have reviewed the following items lindy (where applicable) has been applied. Medications: Current Medications Medications (Trade) Dose Ordered Sig/Juan Route PRN Reason Start Time Stop Time Status Last Admin Dose Admin Apixaban (Eliquis) 5 mg BID PO 03/16/21 09:00 03/16/21 21:14 Vancomycin HCl (Vanco Per Pharmacy) 1 each PRN DAILY PRN MC SEE COMMENTS 03/16/21 09:15 03/16/21 13:35 Piperacillin Sod/ Tazobactam Sod 4.5 gm/Sodium Chloride 100 ml @ 200 mls/hr Q6HRS IV 03/16/21 10:00 03/17/21 05:55 Vancomycin HCl 2 gm/Sodium Chloride 500 ml @ 250 mls/hr 1X ONCE IV 03/16/21 11:00 03/16/21 12:59 DC 03/16/21 12:15 Vancomycin HCl 1.5 gm/Sodium Chloride 500 ml @ 250 mls/hr Q12H IV 03/16/21 22:00 03/16/21 21:14 Metoprolol Tartrate (Lopressor) 75 mg BID PO 03/16/21 15:00 03/16/21 21:18 Digoxin (Lanoxin) 500 mcg 1X ONCE IV 03/16/21 15:00 03/16/21 15:01 DC 03/16/21 16:02 Amiodarone HCl 150 mg/Dextrose 103 ml @ 618 mls/hr 1X ONCE IV 03/16/21 15:00 03/16/21 15:09 DC 03/16/21 16:01 Lactobacillus Rhamnosus (Culturelle) 1 cap BID PO 03/16/21 21:00 03/16/21 21:14 Justifications for Admission Other Justification TEOFILO TOUSSAINT MD Mar 17, 2021 07:17
[2021-03-17] MEDS: NITROGLYCERIN 0.4MG/HR PATCH. TD SCH (08:40)
[2021-03-17] MEDS: LACTOBACILLUS RHAMNOSUS GG 1 CAPSULE. PO SCH ×2 (08:40→19:37)
[2021-03-17] MEDS: CYANOCOBALAMIN (VITAMIN B-12) 1,000 MCG TABLET. PO SCH (08:41)
[2021-03-17] MEDS: CHOLECALCIFEROL (VITAMIN D3) 1,000 UNIT TABLET PO SCH (08:41)
[2021-03-17] MEDS: predniSONE 5 MG TABLET PO SCH ×2 (08:41→19:37)
[2021-03-17] MEDS: MEGESTROL 20 MG TABLET. PO SCH ×2 (08:41→17:17)
[2021-03-17] MEDS: METOPROLOL TART IMMED RELEASE 25 MG TABLET. PO SCH ×2 (08:41→19:38)
[2021-03-17] MEDS: PANTOPRAZOLE 40 MG TABLET.DR. PO SCH (08:41)
[2021-03-17] MEDS: MEMANTINE 5 MG TABLET. PO SCH ×2 (08:41→19:38)
[2021-03-17] MEDS: APIXABAN 5 MG TABLET. PO SCH ×2 (08:41→19:37)
[2021-03-17] MEDS: CLOPIDOGREL BISULFATE 75 MG TABLET PO SCH (08:41)
[2021-03-17] MEDS: SENNOSIDES/DOCUSATE 8.6/50MG TABLET. PO SCH ×2 (08:42→19:37)
[2021-03-17] MEDS: AMIODARONE HCL 200 MG TABLET. PO SCH (08:42)
[2021-03-17] MEDS: guaiFENesin DM 600/30MG 1 TAB TAB.ER.12H PO SCH ×2 (08:42→19:37)
[2021-03-17] MEDS: ABIRATERONE ACETATE PO SCH (08:44)
[2021-03-17] MEDS: VANCOMYCIN 1.5 GM in IV NORMAL SALINE 500ML BAG 500 ML IV SCH ×2 (08:58→21:24)
[2021-03-17] MEDS: VANCOMYCIN PER PHARMACY MC PRN (09:41)
[2021-03-17 11:00] VITALS: BP 116/61
[2021-03-17 14:52] VITALS: BP 141/57
[2021-03-17 18:09] VITALS: BP 125/65
[2021-03-17] MEDS: ATORVASTATIN CALCIUM 40 MG TABLET. PO SCH (19:37)
[2021-03-17 20:49] LABS: VANC TR 20.5 mcg/mL (10.0-20.0)
[2021-03-17 23:19] VITALS: BP 137/57
--- NOTE | 2021-03-17 23:28 | PDOC ---
CARDIOLOGY PROGRESS NOTE SUBJECTIVE: No acute events overnight. Denies any chest pain. Eating ok. at bedside. OBJECTIVE: Vital Signs/I&O: Vital Signs Date Time Temp Pulse Resp B/P (MAP) Pulse Ox O2 Delivery O2 Flow Rate FiO2 03/17/21 23:19 99.3 76 16 137/57 (83) 97 Room Air 99.3 03/16/21 08:06 2.0 I & O 03/16/21 03/16/21 03/17/21 15:00 23:00 07:00 Intake Total 300 ml 340 ml 0 ml Output Total 500 ml 300 ml 150 ml Balance -200 ml 40 ml -150 ml Objective: GEN.: No apparent distress. Alert and oriented. HEENT: Head is normocephalic, atraumatic NECK: Supple. LUNGS: Clear to auscultation. HEART: RRR, S1, S2 present. Peripheral pulses intact ABDOMEN: Soft, nontender. Positive bowel sounds. EXTREMITIES: Without any cyanosis. NEUROLOGIC: Normal speech, normal tone PSYCHIATRIC: Normal affect, normal mood. SKIN: No ulcerations CURRENT MEDICATIONS: Current Medications Medications (Trade) Dose Ordered Sig/Juan Route PRN Reason Start Time Stop Time Status Last Admin Dose Admin Vancomycin HCl (Vancomycin Trough Level) 1 each 1X ONCE MC 03/17/21 20:30 03/17/21 20:31 DC 03/17/21 20:27 DIAGNOSTIC TESTING: Labs: Laboratory Tests Test 03/17/21 20:05 Vancomycin Level Trough 20.5 mcg/mL (10.0-20.0) H Vancomycin Last Dose Date 03/17/21 Vancomycin Last Dose Time 0900 ASSESSMENT: 1. Non-STEMI; trop peak 9 2. CAD; LHC showed 100% occlusion of small to medium caliber OM branch of LCX. Managed medically as this was late presentation, troponins were trending down, and his CP was atypical. LVEF preserved. CT chest negative for acute PE 3. PAFIB; on amiodarone gtt. continues to periods of AFIB with RVR intermittently. presently afib with RVR 4. SSS, tachybrady; sinus bradycardia and pause noted on scheduled metoprolol, but continue to have periods of AFIB with RVR despite metoprolol 4. Hyperlipidemia; statin 5. GERD 6. LE pain, weakness with h/o spinal stenosis. as per IM 7. Electrolyte abn. 8. Dyspnea with probable PNA. S/p recent COVID infection (01/19) 9. Fevers 10. Dementia 11. Thyroid nodule PLAN: Doing well. Continue present meds. Supportive care. Await placement in rehab. Justicifation of Admission Dx: Justifications for Admission: Justification of Admission Dx: Yes CHF: Cardiac Arrhythmias [place]: Acute NSTEMI GERARDO ADRIAN MD Mar 17, 2021 23:28
[2021-03-18 03:15] VITALS: BP 128/58
[2021-03-18] MEDS: VANCOMYCIN PER PHARMACY MC PRN (03:22)
--- NOTE | 2021-03-18 03:23 | NUR ---
Pharmacy Vancomycin Dosing Note S:Consulted to monitor and dose vancomycin started 03/16/21. O:SAMANTHA CAMPBELL is a 80 year old M with Pneumonia . Height: 5 feet, 10 inches Weight: 96.9 kg Gregory Body Weight: 73.00 Adjusted Body Weight: 82.56 Dosing Weight: Actual Other Antibiotics: zosyn LABS: Last BUN: 7 Last Creatinine: 0.8 Creatinine Clearance: 68 mL/min Last WBC: 10.7 Last Procalcitonin: 0.22 Tmax (past 24 hours): 99.0 Microbiology: 03/16 blood cx: NGTD I/O: 640/950 Drug Levels: Last Trough level: 20.5 on 03/17/21 at 2005 Last dose given 03/17/21 at 2200 Vancomycin Dosing: Loading Dose: 2000 mg x1 Dosing Weight: Actual Target Trough: 15-20 A: Based on: SUPRATHERAPEUTIC VANCOMYCIN LEVEL, P: 1. INITIATE Vancomycin 2000 mg IV q18h 2. Follow up Trough level NEEDED 3. Pharmacy will continue to monitor, follow and adjust therapy as needed. SAIGE MIGUEL [place], 03/18/21 [id number]
[2021-03-18] MEDS: IV 1/2 NORMAL SALINE 1,000 ML IV SCH ×2 (04:25→17:45)
[2021-03-18] MEDS: PIPERACILLIN/TAZOBACTAM 4.5 GM in IV NORMAL SALINE 100ML 100 ML IV SCH ×3 (05:07→12:01)
[2021-03-18 07:00] VITALS: BP 159/118
[2021-03-18] MEDS: guaiFENesin DM 600/30MG 1 TAB TAB.ER.12H PO SCH ×2 (08:46→20:41)
[2021-03-18] MEDS: CHOLECALCIFEROL (VITAMIN D3) 1,000 UNIT TABLET PO SCH (08:46)
[2021-03-18] MEDS: MEGESTROL 20 MG TABLET. PO SCH ×2 (08:46→20:41)
[2021-03-18] MEDS: CYANOCOBALAMIN (VITAMIN B-12) 1,000 MCG TABLET. PO SCH (08:47)
[2021-03-18] MEDS: PANTOPRAZOLE 40 MG TABLET.DR. PO SCH (08:47)
[2021-03-18] MEDS: AMIODARONE HCL 200 MG TABLET. PO SCH (08:47)
[2021-03-18] MEDS: CLOPIDOGREL BISULFATE 75 MG TABLET PO SCH (08:47)
[2021-03-18] MEDS: LACTOBACILLUS RHAMNOSUS GG 1 CAPSULE. PO SCH ×2 (08:47→20:41)
[2021-03-18] MEDS: SENNOSIDES/DOCUSATE 8.6/50MG TABLET. PO SCH ×2 (08:49→20:42)
[2021-03-18] MEDS: predniSONE 5 MG TABLET PO SCH ×2 (08:49→20:41)
[2021-03-18] MEDS: MEMANTINE 5 MG TABLET. PO SCH ×2 (08:49→20:41)
[2021-03-18] MEDS: METOPROLOL TART IMMED RELEASE 25 MG TABLET. PO SCH ×2 (08:51→20:41)
[2021-03-18] MEDS: APIXABAN 5 MG TABLET. PO SCH ×2 (08:51→20:41)
[2021-03-18] MEDS: NITROGLYCERIN 0.4MG/HR PATCH. TD SCH (09:00)
[2021-03-18] MEDS: ABIRATERONE ACETATE PO SCH (09:01)
[2021-03-18 11:19] VITALS: BP 111/64
[2021-03-18] MEDS ORDERED: NITROGLYCERIN 0.4 MG/HR TD (11:56)
[2021-03-18] MEDS ORDERED: ATOR40TA59 PO (11:56)
[2021-03-18] MEDS ORDERED: AMIO200T6 PO (11:56)
[2021-03-18] MEDS ORDERED: CLOP75TA PO (11:56)
[2021-03-18] MEDS ORDERED: APIX5TAB PO (11:56)
[2021-03-18] MEDS ORDERED: METO25TA4 PO (11:56)
--- NOTE | 2021-03-18 11:57 | SNU/HH DC ---
DISCHARGE ORDERS DISCHARGE INFORMATION: FINAL DIAGNOSIS Problems Medical Problems: (1) ACS (acute coronary syndrome) Status: Acute CONDITION ON DISCHARGE: Stable CODE STATUS: Code Status: Full MCC: SNF STAY <30 DAYS: Yes HOSPICE: HOSPICE: No HOSPICE EVAL & TREAT: No LTAC: ADMIT TO LTAC: No POST DISCHARGE ORDERS: DIET AFTER DISCHARGE: Cardiac CHECKS AFTER DISCHARGE: COMMENTS: PPM incision line TREATMENT/EQUIPMENT ORDERS: Physical Therapy For: Evalulation/Treatment Occupational Therapy For: Evaluation/Treatment DISCHARGE MEDICATIONS: Home Meds Reported Medications Cholecalciferol (Vitamin D3) (Vitamin D3 ) 25 Mcg Tablet, 25 MCG PO DAILY for SUPPLEMENT, TAB 1,000 UNITS = 25 MCG 03/09/21 Cyanocobalamin (Vitamin B-12) (B-12) 1,000 Mcg Tablet, 1000 MCG PO DAILY for supplement, TAB 03/09/21 Folic Acid (FOLIC ACID) 0.4 Mg Tablet, 1 MG PO DAILY for SUPPLEMENT, TAB 03/09/21 Tramadol Hcl (TRAMADOL HCL) 50 Mg Tablet, 50 MG PO PRN BID PRN for PAIN, TAB 03/09/21 Calcium Carbonate (CALCIUM CARBONATE) 650 Mg Tablet, 2 TAB PO DAILY for supplement for 30 Days, #60 TAB 0 Refills 03/09/21 Megestrol Acetate (MEGESTROL ACETATE) 40 Mg Tablet, 40 MG PO BID for CA tx, TAB 03/09/21 Memantine Hcl (NAMENDA) 10 Mg Tablet, 5 MG PO BID for dementia, TAB 03/09/21 Omeprazole (OMEPRAZOLE) 20 Mg Capsule.dr, 20 MG PO DAILY for GERD, CAP 03/09/21 Prednisone (PREDNISONE) 2.5 Mg Tablet, 5 MG PO BID for inflammation, TAB 03/09/21 Abiraterone Acetate (ZYTIGA) 250 Mg Tablet, 4 TAB PO DAILY for prostate CA for 30 Days, #120 TAB 0 Refills 03/09/21 OMKAR WESTFALL III DO Mar 18, 2021 11:57
[2021-03-18] MEDS ORDERED: AMOX1TAB61 PO (11:59)
--- NOTE | 2021-03-18 12:36 | DS ---
DATE OF DISCHARGE: 03/18/2021 ADMISSION DIAGNOSES: Acute coronary syndrome, pneumonia, elevated troponin, probable acute myocardial infarction, respiratory failure. DISCHARGE DIAGNOSES: Resolving pneumonia, resolving acute myocardial infarction, resolving acute coronary syndrome, status post new permanent pacemaker placement, edema, sick sinus syndrome, atrial fibrillation/atrial flutter, history of metastatic prostate cancer. CONSULTS: Sunny Machado MD; Collin Lima MD; Bi Cervantes MD and Mila Head MD. HOSPITAL COURSE: The patient is a pleasant, older male who presented with acute coronary syndrome, also had a bump in his troponin. He also had pneumonia and respiratory failure. The patient was admitted. The above consults were obtained. His troponin peaked at 9.188. He was taken to the cathode washer, no stents had to be placed. He did have mild disease, but he also had a sick sinus syndrome, so we had to go for a permanent pacemaker. Today, I saw and examined him. He is at his baseline. His rate seems to be controlled. He still has some edema. He is quite weak. I reviewed the case with the case management specialist and the nurse. The patient is being discharged to nursing home at [facility] if it can be arranged today. DISPOSITION: [facility]. ACTIVITY: As tolerated. DIET: Cardiac. MEDICATIONS: Augmentin 875 p.o. b.i.d., amiodarone 200 a day, Eliquis 5 b.i.d., atorvastatin 40 a day, Plavix 75 a day, metoprolol 75 b.i.d., nitro patch, Zytiga 1 gram daily for his prostate cancer, calcium carbonate, vitamin D, vitamin B12, folic acid, Megace 40 b.i.d., Namenda 5 b.i.d., omeprazole 20 a day, prednisone 2.5 a day and Ultram 50 b.i.d. TOTAL TIME: [address]: CATHI/unique TID: [id number]
--- NOTE | 2021-03-18 12:46 | PDOC ---
PROGRESS NOTES Date of Service DATE: 03/18/21 TIME: 12:42 Subjective Subjective No new complaints. 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 Physical therapy notes of him requiring maximal assistance for transfers. Assessment Assessment Problems Medical Problems: (1) ACS (acute coronary syndrome) Status: Acute Plan Plan of Care Agree with plans for SNF transfer when medically stable. Comment Review of Relevant I have reviewed the following items lindy (where applicable) has been applied. Labs Laboratory Tests Test 03/17/21 20:05 Vancomycin Level Trough 20.5 mcg/mL (10.0-20.0) Vancomycin Last Dose Date 03/17/21 Vancomycin Last Dose Time 0900 Laboratory Tests Test 03/17/21 20:05 Vancomycin Level Trough 20.5 mcg/mL (10.0-20.0) Vancomycin Last Dose Date 03/17/21 Vancomycin Last Dose Time 0900 Microbiology 03/11/21 Blood Culture - Final, Complete NO GROWTH AFTER 5 DAYS Medications Current Medications Heparin Sodium (Porcine) (Heparin Sodium) 4,000 unit 1X ONCE IV Last administered on 03/08/21at 21:37; Start 03/08/21 at 21:30; Stop 03/08/21 at 21:31; Status DC Heparin Sodium/ Dextrose 250 ml @ 0 mls/hr 1X ONCE IV ; Start 03/08/21 at 21:00; Stop 03/08/21 at 21:01; Status UNV Fentanyl Citrate (Fentanyl 2ml Vial) 50 mcg 1X ONCE IVP Last administered on 03/08/21at 21:41; Start 03/08/21 at 21:00; Stop 03/08/21 at 21:21; Status DC Heparin Sodium/ Dextrose 250 ml @ 10 mls/hr CONT PRN IV PER PROTOCOL Last administered on 03/09/21at 17:52; Start 03/08/21 at 21:30; Stop 03/10/21 at 09:37; Status DC Heparin Sodium (Porcine) (Heparin Sodium) 2,250 unit PRN Q6HRS PRN IV FOR UFH LEVEL LESS THAN 0.2 Last administered on 03/10/21at 06:46; Start 03/08/21 at 21:30; Stop 03/10/21 at 09:37; Status DC Info (Anti-Coagulation Monitoring By Pharmacy) 1 each PRN DAILY PRN MC PER PROTOCOL Last administered on 03/09/21at 11:56; Start 03/08/21 at 21:30; Stop 03/10/21 at 14:51; Status DC Potassium Chloride (Klor-Con) 40 meq 1X ONCE PO Last administered on 03/08/21at 22:22; Start 03/08/21 at 22:00; Stop 03/08/21 at 22:01; Status DC Magnesium Sulfate/ Dextrose 100 ml @ 100 mls/hr 1X ONCE IV Last administered on 03/08/21at 22:23; Start 03/08/21 at 22:00; Stop 03/08/21 at 22:59; Status DC Potassium Chloride/Water 100 ml @ 50 mls/hr 1X ONCE IV ; Start 03/08/21 at 21:45; Stop 03/08/21 at 23:44; Status UNV Potassium Chloride/Water 100 ml @ 100 mls/hr Q1H IV Last administered on 03/09/21at 01:03; Start 03/08/21 at 22:00; Stop 03/08/21 at 23:59; Status DC Ondansetron HCl (Zofran) 4 mg PRN Q8HRS PRN IVP NAUSEA/VOMITING 1ST CHOICE; Start 03/08/21 at 22:30; Stop 03/09/21 at 11:45; Status DC Fentanyl Citrate (Fentanyl 2ml Vial) 50 mcg PRN Q2HRS PRN IVP CHEST PAIN Last administered on 03/09/21at 09:00; Start 03/08/21 at 22:30 Sodium Chloride 1,000 ml @ 75 mls/hr 1X ONCE IV Last administered on 03/09/21at 01:48; Start 03/08/21 at 23:00; Stop 03/09/21 at 12:19; Status DC Sodium Chloride 500 ml @ 500 mls/hr 1X ONCE IV Last administered on 03/08/21at 22:48; Start 03/08/21 at 23:00; Stop 03/08/21 at 23:59; Status DC Morphine Sulfate (Morphine Sulfate) 4 mg 1X ONCE IVP Last administered on 03/08/21at 22:47; Start 03/08/21 at 23:00; Stop 03/08/21 at 23:01; Status DC Vitamin D (Vitamin D3) 1,000 unit DAILY PO Last administered on 03/18/21at 08:46; Start 03/09/21 at 10:00 Cyanocobalamin (Vitamin B-12) 1,000 mcg DAILY PO Last administered on 03/18/21 08:47; Start 03/09/21 at 10:00 Memantine (Namenda) 5 mg BID PO Last administered on 03/18/21at 08:49; Start 03/09/21 at 10:00 Tramadol HCl (Ultram) 50 mg PRN BID PRN PO PAIN; Start 03/09/21 at 09:30; Stop 03/09/21 at 09:32; Status DC Megestrol Acetate (Megace) 40 mg BID PO Last administered on 03/18/21at 08:46; Start 03/09/21 at 10:00 Pantoprazole Sodium (Protonix) 40 mg DAILYAC PO Last administered on 03/18/21at 08:47; Start 03/09/21 at 10:00 Tramadol HCl (Ultram) 50 mg PRN Q6HRS PRN PO PAIN Last administered on 03/14/21at 21:19; Start 03/09/21 at 09:30 Ondansetron HCl (Zofran) 4 mg PRN Q6HRS PRN IVP NAUSEA/VOMITING; Start 03/09/21 at 09:45 Calcium Carbonate/ Glycine (Tums) 500 mg PRN Q3HRS PRN PO UPSET STOMACH; Start 03/09/21 at 09:45 Zolpidem Tartrate (Ambien) 5 mg PRN QHS PRN PO INSOMNIA, MAY REPEAT IN 1HR Last administered on 03/10/21at 20:55; Start 03/09/21 at 09:45 Info (Non-Icu Electrolyte Protocol) 1 ea PRN DAILY PRN MC SEE COMMENTS; Start 03/09/21 at 09:45 Oxycodone HCl (Roxicodone) 5 mg PRN Q3HRS PRN PO BREAKTHROUGH PAIN Last administered on 03/09/21at 20:50; Start 03/09/21 at 09:45 Acetaminophen (Tylenol) 650 mg PRN Q6HRS PRN PO Headaches, Temp > 101.5F Last administered on 03/16/21at 18:41; Start 03/09/21 at 09:45 Senna/Docusate Sodium (Senna Plus) 1 tab BID PO Last administered on 03/18/21at 08:49; Start 03/09/21 at 21:00 Iohexol (Omnipaque 350 Mg/ml) 90 ml 1X ONCE IV Last administered on 03/09/21at 09:50; Start 03/09/21 at 09:45; Stop 03/09/21 at 09:46; Status DC Nitroglycerin (Nitro-Dur 0.4mg) 1 patch DAILY TD Last administered on 03/18/21at 09:00; Start 03/09/21 at 10:00 Morphine Sulfate (Morphine Sulfate) 4 mg PRN Q2HR PRN IV PAIN Last administered on 03/09/21at 20:51; Start 03/09/21 at 09:45 Non-Formulary Medication (Abiraterone Acetate (Zytiga)) 4 tab DAILYAC PO Last administered on 03/18/21at 09:01; Start 03/09/21 at 11:30 Doxycycline Hyclate (Vibra-Tab) 100 mg BID PO Last administered on 03/14/21at 21:19; Start 03/09/21 at 13:00; Stop 03/15/21 at 08:54; Status DC Ampicillin Sodium/ Sulbactam Sodium 1.5 gm/Sodium Chloride 50 ml @ 100 mls/hr Q6HRS IV Last administered on 03/11/21at 11:41; Start 03/09/21 at 14:00; Stop 03/11/21 at 14:52; Status DC Nitroglycerin (Nitrostat) 0.4 mg PRN Q5MIN PRN SL CHEST PAIN Last administered on 03/09/21at 18:04; Start 03/09/21 at 18:00 Nitroglycerin (Nitrostat) 0.4 mg STK-MED ONCE SL ; Start 03/09/21 at 18:02; Stop 03/09/21 at 18:02; Status DC Nitroglycerin/ Dextrose 250 ml @ 1.5 mls/hr CONT PRN IV SEE I/O RECORD Last administered on 03/09/21at 20:52; Start 03/09/21 at 18:30 Digoxin (Lanoxin) 500 mcg 1X ONCE IV Last administered on 03/10/21at 03:13; Start 03/10/21 at 03:30; Stop 03/10/21 at 03:31; Status DC Digoxin (Lanoxin) 250 mcg 1X ONCE IV Last administered on 03/10/21at 04:51; Start 03/10/21 at 05:00; Stop 03/10/21 at 05:01; Status DC Diltiazem HCl 125 mg/Sodium Chloride 125 ml @ 5 mls/hr CONT PRN IV PER PROTOCOL Last administered on 03/10/21at 06:13; Start 03/10/21 at 04:45; Stop 03/10/21 at 09:36; Status DC Iodixanol (Visipaque 320) 100 ml STK-MED ONCE .ROUTE ; Start 03/10/21 at 07:56; Stop 03/10/21 at 07:56; Status DC Lidocaine HCl (Xylocaine-Mpf 1% 2ml Vial) 2 ml STK-MED ONCE .ROUTE ; Start 03/10/21 at 07:56; Stop 03/10/21 at 07:56; Status DC Heparin Sodium/ Sodium Chloride 1,000 ml @ As Directed STK-MED ONCE .ROUTE ; Start 03/10/21 at 07:56; Stop 03/10/21 at 07:56; Status DC Fentanyl Citrate (Fentanyl 2ml Vial) 100 mcg STK-MED ONCE .ROUTE ; Start 03/10/21 at 08:10; Stop 03/10/21 at 08:10; Status DC Midazolam HCl (Versed) 2 mg STK-MED ONCE .ROUTE ; Start 03/10/21 at 08:10; Stop 03/10/21 at 08:11; Status DC Heparin Sodium (Porcine) (Heparin Sodium) 10,000 unit STK-MED ONCE .ROUTE ; Start 03/10/21 at 08:11; Stop 03/10/21 at 08:11; Status DC Verapamil HCl (Verapamil) 5 mg STK-MED ONCE .ROUTE ; Start 03/10/21 at 08:11; Stop 03/10/21 at 08:11; Status DC Nitroglycerin (Nitroglycerin) 200 mcg STK-MED ONCE .ROUTE ; Start 03/10/21 at 08:11; Stop 03/10/21 at 08:11; Status DC Nitroglycerin (Nitroglycerin) 200 mcg 1X ONCE IART Last administered on 03/10/21at 08:30; Start 03/10/21 at 08:30; Stop 03/10/21 at 08:31; Status DC Verapamil HCl (Verapamil) 2.5 mg 1X ONCE IART Last administered on 03/10/21at 08:30; Start 03/10/21 at 08:30; Stop 03/10/21 at 08:31; Status DC Heparin Sodium (Porcine) (Heparin Sodium) 2,500 unit 1X ONCE IART Last administered on 03/10/21at 08:30; Start 03/10/21 at 08:30; Stop 03/10/21 at 08:31; Status DC Heparin Sodium/ Sodium Chloride (HEPARIN for ARTERIAL LINE FLUSH) 1,000 unit 1X ONCE IART Last administered on 03/10/21at 08:30; Start 03/10/21 at 08:30; Stop 03/10/21 at 08:31; Status DC Midazolam HCl (Versed) 2 mg 1X ONCE IV Last administered on 03/10/21at 08:30; Start 03/10/21 at 08:30; Stop 03/10/21 at 08:31; Status DC Fentanyl Citrate (Fentanyl 2ml Vial) 100 mcg 1X ONCE IV Last administered on 03/10/21at 08:30; Start 03/10/21 at 08:30; Stop 03/10/21 at 08:31; Status DC Iodixanol (Visipaque 320) 100 ml 1X ONCE IART Last administered on 03/10/21at 08:30; Start 03/10/21 at 08:30; Stop 03/10/21 at 08:31; Status DC Lidocaine HCl (Xylocaine-Mpf 1% 2ml Vial) 2 ml 1X ONCE INJ Last administered on 03/10/21at 08:30; Start 03/10/21 at 08:30; Stop 03/10/21 at 08:31; Status DC Sodium Chloride 1,000 ml @ 75 mls/hr [id number] IV Last administered on 03/18/21at 04:25; Start 03/10/21 at 09:45 Aspirin (Ecotrin) 325 mg DAILYWBKFT PO Last administered on 03/11/21at 08:44; Start 03/11/21 at 08:00; Stop 03/11/21 at 11:24; Status DC Clopidogrel Bisulfate (Plavix) 75 mg DAILYWBKFT PO Last administered on 03/14/21at 08:44; Start 03/11/21 at 08:00; Stop 03/14/21 at 15:06; Status DC Metoprolol Tartrate (Lopressor) 25 mg BID PO Last administered on 03/10/21at 20:56; Start 03/10/21 at 10:30; Stop 03/11/21 at 11:24; Status DC Atorvastatin Calcium (Lipitor) 40 mg QHS PO Last administered on 03/17/21at 19:37; Start 03/10/21 at 21:00 Clopidogrel Bisulfate (Plavix) 300 mg 1X ONCE PO Last administered on 03/10/21at 09:43; Start 03/10/21 at 09:45; Stop 03/10/21 at 09:46; Status DC Potassium Chloride (Klor-Con) 40 meq 1X ONCE PO Last administered on 03/10/21at 13:14; Start 03/10/21 at 13:00; Stop 03/10/21 at 13:01; Status DC Amiodarone HCl 150 mg/Dextrose 103 ml @ 600 mls/hr 1X ONCE IV Last administered on 03/11/21at 13:08; Start 03/11/21 at 11:30; Stop 03/11/21 at 11:40; Status DC Amiodarone HCl 450 mg/Dextrose 259 ml @ 0 mls/hr CONT PRN IV SEE I/O RECORD Last administered on 03/11/21at 22:44; Start 03/11/21 at 11:30; Stop 03/12/21 at 11:29; Status DC Apixaban (Eliquis) 5 mg BID PO Last administered on 03/14/21at 08:45; Start 03/11/21 at 12:00; Stop 03/14/21 at 15:06; Status DC Info (Anti-Coagulation Monitoring By Pharmacy) 1 each PRN DAILY PRN MC PER PROTOCOL; Start 03/11/21 at 11:45 Amoxicillin/ Clavulanate Potassium (Augmentin 875/ 125mg) 1 tab BID PO Last administered on 03/11/21at 21:52; Start 03/11/21 at 21:00; Stop 03/12/21 at 06:51; Status DC Potassium Chloride (Klor-Con) 40 meq 1X ONCE PO ; Start 03/11/21 at 17:00; Stop 03/11/21 at 17:01; Status UNV Piperacillin Sod/ Tazobactam Sod (Zosyn Per Pharmacy) 1 each PRN DAILY PRN MC SEE COMMENTS; Start 03/12/21 at 06:45; Stop 03/15/21 at 08:54; Status DC Piperacillin Sod/ Tazobactam Sod 4.5 gm/Sodium Chloride 100 ml @ 200 mls/hr Q8HRS IV Last administered on 03/13/21at 06:00; Start 03/12/21 at 07:00; Stop 03/13/21 at 07:16; Status DC Magnesium Sulfate/ Dextrose 100 ml @ 100 mls/hr 1X ONCE IV Last administered on 03/12/21at 11:51; Start 03/12/21 at 10:00; Stop 03/12/21 at 10:59; Status DC Potassium Chloride (Klor-Con) 40 meq 1X ONCE PO Last administered on 03/12/21at 09:37; Start 03/12/21 at 09:30; Stop 03/12/21 at 09:32; Status DC Prednisone (Prednisone) 5 mg BID PO Last administered on 03/18/21at 08:49; Start 03/12/21 at 12:00 Metoprolol Tartrate (Lopressor Vial) 5 mg 1X ONCE IVP Last administered on 03/12/21at 11:12; Start 03/12/21 at 11:00; Stop 03/12/21 at 11:04; Status DC Aspirin (Ecotrin) 81 mg DAILYWBKFT PO Last administered on 03/16/21at 09:40; Start 03/13/21 at 08:00; Stop 03/16/21 at 14:49; Status DC Amiodarone HCl (Cordarone) 200 mg DAILY PO Last administered on 03/18/21at 08:47; Start 03/12/21 at 16:00 Sodium Chloride 1,000 ml @ 100 mls/hr 1X ONCE IV Last administered on 03/12/21at 20:30; Start 03/12/21 at 19:30; Stop 03/13/21 at 05:29; Status DC Potassium Chloride (Klor-Con) 40 meq Q4H PO Last administered on 03/13/21at 08:20; Start 03/13/21 at 05:00; Stop 03/13/21 at 09:01; Status DC Piperacillin Sod/ Tazobactam Sod 4.5 gm/Sodium Chloride 100 ml @ 200 mls/hr Q6HRS IV Last administered on 03/15/21at 05:19; Start 03/13/21 at 12:00; Stop 03/15/21 at 08:54; Status DC Vancomycin HCl (Vanco Per Pharmacy) 1 each PRN DAILY PRN MC SEE COMMENTS Last administered on 03/13/21at 08:56; Start 03/13/21 at 08:00; Stop 03/14/21 at 06:14; Status DC Vancomycin HCl 2 gm/Sodium Chloride 500 ml @ 250 mls/hr 1X ONCE IV Last administered on 03/13/21at 08:19; Start 03/13/21 at 09:00; Stop 03/13/21 at 10:59; Status DC Vancomycin HCl 1.5 gm/Sodium Chloride 500 ml @ 250 mls/hr Q12H IV Last administered on 03/13/21at 22:03; Start 03/13/21 at 20:00; Stop 03/14/21 at 06:14; Status DC Vancomycin HCl (Vancomycin Trough Level) 1 each 1X ONCE MC ; Start 03/14/21 at 19:30; Stop 03/14/21 at 06:20; Status DC Potassium Chloride (Klor-Con) 20 meq 1X ONCE PO Last administered on 03/13/21at 22:03; Start 03/13/21 at 20:00; Stop 03/13/21 at 20:12; Status DC Methylprednisolone Acetate (DEPO-Medrol 40MG VIAL) 40 mg 1X ONCE IM Last administered on 03/14/21at 10:00; Start 03/14/21 at 10:00; Stop 03/14/21 at 10 :01; Status DC Bupivacaine HCl (Sensorcaine-Mpf 0.25%) 10 ml 1X ONCE IJ Last administered on 03/14/21at 10:00; Start 03/14/21 at 10:00; Stop 03/14/21 at 10:01; Status DC Potassium Chloride (Klor-Con) 40 meq 1X ONCE PO Last administered on 03/14/21a t 14:37; Start 03/14/21 at 10:45; Stop 03/14/21 at 10:46; Status DC Apixaban (Eliquis) 5 mg BID PO Last administered on 03/18/21at 08:51; Start 03/16/21 at 09:00 Clopidogrel Bisulfate (Plavix) 75 mg DAILYWBKFT PO Last administered on 03/18/21at 08:47; Start 03/15/21 at 16:00 Cefazolin Sodium/ Dextrose 50 ml @ 100 mls/hr 1X ONCE IV ; Start 03/15/21 at 06:00; Stop 03/15/21 at 08:43; Status DC Daptomycin 500 mg/ Sodium Chloride 50 ml @ 100 mls/hr 1X ONCE IV Last administered on 03/15/21at 12:29; Start 03/15/21 at 10:00; Stop 03/15/21 at 10:29; Status DC Cefazolin Sodium 1 gm/Sodium Chloride 100 ml @ 600 mls/hr 1X ONCE IRR Last administered on 03/15/21at 12:28; Start 03/15/21 at 08:45; Stop 03/15/21 at 08:54; Status DC Guaifenesin (MUCINEX ER with DM) 1 tab BID PO Last administered on 03/18/21at 08:46; Start 03/15/21 at 09:00 Amoxicillin/ Clavulanate Potassium (Augmentin 875/ 125mg) 1 tab BID PO Last administered on 03/15/21at 21:34; Start 03/15/21 at 12:00; Stop 03/16/21 at 09:04; Status DC Midazolam HCl (Versed) 2 mg STK-MED ONCE .ROUTE ; Start 03/15/21 at 10:56; Stop 03/15/21 at 10:56; Status DC Fentanyl Citrate (Fentanyl 2ml Vial) 100 mcg STK-MED ONCE .ROUTE ; Start 03/15/21 at 10:56; Stop 03/15/21 at 10:57; Status DC Lidocaine/ Epinephrine (LIDOCAINE 2%-EPI 1:100,000 multi-dose) 20 ml STK-MED ONCE .ROUTE ; Start 03/15/21 at 11:22; Stop 03/15/21 at 11:22; Status DC Midazolam HCl (Versed) 2 mg STK-MED ONCE .ROUTE ; Start 03/15/21 at 11:36; Stop 03/15/21 at 11:36; Status DC Midazolam HCl (Versed) 2 mg 1X ONCE IV Last administered on 03/15/21at 12:31; Start 03/15/21 at 12:15; Stop 03/15/21 at 12:16; Status DC Fentanyl Citrate (Fentanyl 2ml Vial) 100 mcg 1X ONCE IV Last administered on 03/15/21at 12:32; Start 03/15/21 at 12:15; Stop 03/15/21 at 12:16; Status DC Lidocaine/ Epinephrine (LIDOCAINE 2%-EPI 1:100,000 multi-dose) 20 ml 1X ONCE IJ Last administered on 03/15/21at 12:31; Start 03/15/21 at 12:15; Stop 03/15/21 at 12:16; Status DC Cefazolin Sodium/ Dextrose 50 ml @ 100 mls/hr 1X ONCE IV ; Start 03/15/21 at 13:15; Stop 03/15/21 at 13:44; Status UNV Digoxin (Lanoxin) 500 mcg 1X ONCE IV Last administered on 03/15/21at 13:32; Start 03/15/21 at 13:00; Stop 03/15/21 at 13:03; Status DC Metoprolol Tartrate (Lopressor) 25 mg BID PO Last administered on 03/16/21at 09:41; Start 03/15/21 at 16:45; Stop 03/16/21 at 14:49; Status DC Metoprolol Tartrate (Lopressor Vial) 5 mg PRN Q6HRS PRN IVP HYPERTENSION Last administered on 03/15/21at 15:35; Start 03/15/21 at 15:30 Potassium Chloride (Klor-Con) 40 meq 1X ONCE PO Last administered on 03/15/21at 21:34; Start 03/15/21 at 21:15; Stop 03/15/21 at 21:16; Status DC Potassium Chloride (Klor-Con) 40 meq 1X ONCE PO Last administered on 03/15/21at 22:46; Start 03/15/21 at 21:45; Stop 03/15/21 at 21:46; Status DC Piperacillin Sod/ Tazobactam Sod (Zosyn Per Pharmacy) 1 each PRN DAILY PRN MC SEE COMMENTS; Start 03/16/21 at 09:15 Vancomycin HCl (Vanco Per Pharmacy) 1 each PRN DAILY PRN MC SEE COMMENTS Last a dministered on 03/18/21at 03:22; Start 03/16/21 at 09:15 Piperacillin Sod/ Tazobactam Sod 4.5 gm/Sodium Chloride 100 ml @ 200 mls/hr Q6HRS IV Last administered on 03/18/21at 12:01; Start 03/16/21 at 10:00 Vancomycin HCl 2 gm/Sodium Chloride 500 ml @ 250 mls/hr 1X ONCE IV Last administered on 03/16/21at 12:15; Start 03/16/21 at 11:00; Stop 03/16/21 at 12:59; Status DC Vancomycin HCl 1.5 gm/Sodium Chloride 500 ml @ 250 mls/hr Q12H IV Last administered on 03/17/21at 21:24; Start 03/16/21 at 22:00; Stop 03/18/21 at 03:14; Status DC Vancomycin HCl (Vancomycin Trough Level) 1 each 1X ONCE MC Last administered on 03/17/21at 20:27; Start 03/17/21 at 20:30; Stop 03/17/21 at 20:31; Status DC Metoprolol Tartrate (Lopressor) 75 mg BID PO Last administered on 03/18/21at 08:51; Start 03/16/21 at 15:00 Digoxin (Lanoxin) 500 mcg 1X ONCE IV Last administered on 03/16/21at 16:02; Start 03/16/21 at 15:00; Stop 03/16/21 at 15:01; Status DC Amiodarone HCl 150 mg/Dextrose 103 ml @ 618 mls/hr 1X ONCE IV Last administered on 03/16/21at 16:01; Start 03/16/21 at 15:00; Stop 03/16/21 at 15:09; Status DC Lactobacillus Rhamnosus (Culturelle) 1 cap BID PO Last administered on 03/18/21at 08:47; Start 03/16/21 at 21:00 Vancomycin HCl 2 gm/Sodium Chloride 500 ml @ 250 mls/hr Q18H IV ; Start 03/18/21 at 16:00 Active Scripts Active Reported Vitamin D3 (Vitamin D) 25 Mcg Tablet 25 Mcg PO DAILY 1,000 UNITS = 25 MCG B-12 (Cyanocobalamin (Vitamin B-12)) 1,000 Mcg Tablet 1,000 Mcg PO DAILY Folic Acid 0.4 Mg Tablet 1 Mg PO DAILY Tramadol Hcl 50 Mg Tablet 50 Mg PO PRN BID PRN Calcium Carbonate 650 Mg Tablet 2 Tab PO DAILY 30 Days Megestrol Acetate 40 Mg Tablet 40 Mg PO BID Namenda (Memantine Hcl) 10 Mg Tablet 5 Mg PO BID Omeprazole 20 Mg Capsule.dr 20 Mg PO DAILY Prednisone 2.5 Mg Tablet 5 Mg PO BID Zytiga (Abiraterone Acetate) 250 Mg Tablet 4 Tab PO DAILY 30 Days Vitals/I & O Vital Sign - Last 24 Hours 03/17/21 03/17/21 03/17/21 03/17/21 14:52 18:09 19:38 20:00 Temp 97.8 97.8 97.8 97.8 Pulse 79 101 101 Resp 17 18 B/P (MAP) 141/57 (85) 125/65 (85) 125/65 Pulse Ox 94 94 O2 Delivery Room Air Room Air Room Air 03/17/21 03/18/21 03/18/21 03/18/21 23:19 03:15 07:00 08:47 Temp 99.3 98.7 98.2 99.3 98.7 98.2 Pulse 76 82 96 96 Resp 16 16 18 B/P (MAP) 137/57 (83) 128/58 (81) 159/118 (132) 159/118 Pulse Ox 97 92 93 O2 Delivery Room Air Room Air Room Air 03/18/21 03/18/21 08:51 11:19 Temp 98.4 98.4 Pulse 96 72 Resp 17 B/P (MAP) 159/118 111/64 (80) Pulse Ox 94 O2 Delivery Room Air Intake and Output 03/17/21 03/17/21 03/18/21 15:00 23:00 07:00 Intake Total 780 ml 0 ml Output Total 100 ml Balance 780 ml -100 ml 0 ml Justifications for Admission Other Justification TAMI ANN MD Mar 18, 2021 12:46
--- NOTE | 2021-03-18 12:51 | PDOC ---
HANS MOLINA PLACEMENT COORDINATOR 03/18/21 1251: CARDIO Progress Notes Date and Time Date of Service 03/18/21 Time of Evaluation 1245 Subjective Subjective: No Chest Pain, No shortness of breath, No Palpitations Vitals Vitals Vital Signs Date Time Temp Pulse Resp B/P (MAP) Pulse Ox O2 Delivery O2 Flow Rate FiO2 03/18/21 11:19 98.4 72 17 111/64 (80) 94 Room Air 98.4 Weight Weight [ ] Input and Output Intake and Output Intake and Output 03/18/21 07:00 Intake Total 780 ml Output Total 100 ml Balance 680 ml Intake Oral 180 ml IV Total 600 ml Output Urine Total 100 ml # Bowel Movements 3 Laboratory Labs Laboratory Tests Test 03/17/21 20:05 Vancomycin Level Trough 20.5 mcg/mL (10.0-20.0) Vancomycin Last Dose Date 03/17/21 Vancomycin Last Dose Time 0900 Microbiology Micro Microbiology 03/11/21 Blood Culture - Final, Complete NO GROWTH AFTER 5 DAYS Physical Exam HEENT: Neck Supple W Full Motion Chest: Symmetric, Other (left chest PPM incision well approximated. Steri-strip intact. No hematoma present ) LUNGS: Clear to Auscultation Heart: RRR (SR) Abdomen: Soft N/T Extremities: No Edema Neurology: alert, oriented, follow commands Assessment Assessment 1. Non-STEMI; trop peak 9 2. CAD; LHC showed 100% occlusion of small to medium caliber OM branch of LCX. Managed medically as this was late presentation, troponins were trending down, and his CP was atypical. LVEF preserved. CT chest negative for acute PE 3. PAFIB; presently SR 4. SSS, tachy-jn syndrome; s/p Biotronik dual-chamber PPM 4. Hyperlipidemia; statin 5. GERD 6. LE pain, weakness with h/o spinal stenosis. as per IM 7. Hypokalemia, hypomagnesemia; replaced 8. Dyspnea with probable PNA. S/p recent COVID infection (01/19) 9. Anemia; hgb stable. Recommendations Continue amiodarone for rhythm maintenance BB for rate control Eliquis for stroke prophylaxis Secondary prevention including statin, Plavix. No ASA as patient is on Eliquis Supportive care Awaiting rehab placement Supportive care Patient will have wound monitored at rehab facility. Follow up in our office with Dr. Machado as scheduled Justicifation of Admission Dx: Justifications for Admission: Justification of Admission Dx: Yes CHF: Cardiac Arrhythmias ND: Acute NSTEMI ELY MACHADO MD 03/18/21 1628: CARDIO Progress Notes Assessment Assessment Patient seen and examined. Agree with MARINE RIGGER's assessment and plan. NSTEMI with pleuritic CP, Cardiac cath and echo results noted - cont medical management Tachycardia-bradycardia syndrome s/p PPM, clinically stable Patient presently in sinus rhythm Waiting for rehab placement HANS MOLINA APRN Mar 18, 2021 12:51 ELY MACHADO MD Mar 18, 2021 16:28
--- NOTE | 2021-03-18 12:53 | PDOC ---
[employer] PROGRESS NOTE Date of Service DOS: DATE: 03/18/21 TIME: 12:52 Chief Complaint Chief Complaint NSTEMI Atypical chest pain Community-acquired pneumonia, possibly gram-negative or possibly gram-positive organism A. fib/a flutter SSS s/p implantation of Biotronik dual-chamber permanent pacemaker History of metastatic prostate cancer History of Present Illness History of Present Illness 03/18/2021 Patient seen and examined Discussed with RN Discussed with his family member Chart reviewed Plan is [facility] to [facility] today if bed available HPI: Patient is an 80-year-old white male was brought into the EMS overnight due to 4-day history of mid substernal chest pain. Says the pain started 4 days ago and at that point as it was not bothering her he just noticed that however last night he noticed it was getting much worse decided present. Describes the pain as more pleuritic than a crushing chest pain denies any recent illnesses. Denies any sort of cardiac history. He does report a history of prostate cancer currently in remission, he does have a lot of back pain from this. On presentation emergency room was found to have elevated troponin and some ST changes on his EKG thus heparin drip started cardiology consulted troponins trended overnight appear to have peaked. Given pleuritic nature of chest pain will perform CTA of the chest. Continue heparin drip. 03/10 Patient evaluated and examined at bedside. CTA performed yesterday negative for PE. Discussed with cardiology team today and agree that his chest pain sounds much more like pleurisy. Either way cardiology planning for cath today. Patient agreeable. Continue antibiotics. Will follow up after cath. 03/11: Patient had left heart cath yesterday that showed 100% occlusion of a small to medium caliber obtuse marginal branch of left circumflex artery, normal left ventricle systolic function with ejection fraction estimated at 55%. Due to his late presentation of NSTEMI and culprit vessel being small to medium caliber obtuse marginal branch, he was recommended medical management. Will discontinue IV Unasyn and place on Augmentin. Obtain morning procalcitonin. Continue Eliquis and IV amiodarone, per cardiology. Patient with complaint of right lower extremity pain and weakness today. Reports pain in his right knee and right ankle with movement; also notes pain in his lumbar spine when he lays supine. He does admit to history of lumbar spinal due to his history of lumbar spinal stenosis, denies any prior history of similar right knee or right ankle pain. Febrile this afternoon with T-max 101.5 F. Given history of lumbar spinal stenosis, will obtain CT lumbar spine. Will obtain influenza A & B, blood cultures. 03/12: Febrile overnight, T-max 101.7F. Given persistent fever will repeat COVID-19 testing and broaden antibiotic coverage with Zosyn; continue doxycycline to cover for atypical organisms. Influenza A&B negative; UA, MRSA PCR, and blood cultures pending, although patient has being on antibiotics since 03/09. Will obtain right knee and right ankle x-ray, as well as CT lumbar spine today. Per cardiology, continue amiodarone infusion for A. fib/flutter paroxysms; stop beta-evy due to significant pauses and concern for SSS. Continue Eliquis for stroke prophylaxis. Hypokalemia and hypomagnesemia noted today, will replace. Is curious why he has not been getting his home prednisone; he takes for his back pain related to his history of prostate cancer. Resume home prednisone. 03/13: Afebrile today. Patient states he feels well. and family have some concerns about his right lower extremity pain and mobility. X-ray showed extensive osteoarthritis, but no fractures or new concerning findings. Patient admits to some worsening swelling in his knee and foot for the past several months prior to admission. Discussed with family that these could be consistent with worsening osteoarthritis as well. would like to speak with psychologist social to see if it would be possible to have him transferred to or 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 Continue treatment with IV antibiotics. 03/14: Afebrile overnight, still breathing on 2 L nasal cannula. Had ultrasound yesterday of right lower extremity was negative for DVT. Potassium remains persistently low secondary to diarrhea. Still with complaint of right knee immobility. X-ray suggestive of severe osteoarthritis. Consulted Dr. Cervantes and we evaluated the patient together bedside. Patient's mobility has improved. Right knee joint injection planned for today, per Dr. Cervantes. Will also obtain CT of right ankle. Will obtain uric acid to evaluate possible gout. MRSA screen negative, will discontinue vancomycin. PT notes recommending SNU. Will continue treatment of pneumonia with IV antibiotics. Continue medical management of CAD, per cardiology. 03/15: Afebrile, breathing on room air. States he is feeling better, but just complained of some chest congestion. Denies any further diarrhea. Denies any nausea or vomiting. He is to have pacemaker placed today. Will likely transition to p.o. antibiotics tomorrow. Physical therapy recommending SNU, but anxious to go to the hospital. Had knee injection yesterday with slight improvement in pain. Depending on physical therapy course, anticipate discharge soon with home health or SNU. 03/16: Patient febrile overnight with T-max 100.8 F. Breathing comfortably on room air. Blood cultures still with no growth to date. WBC 10.1. Had successful implantation of Biotronik dual-chamber permanent pacemaker yesterday for SSS. Due to concerns of recurrent fever will resume Zosyn and vancomycin treatment for pneumonia. Atelectasis is seen on chest x-ray, which could also explain fever. Will have patient work with PT/OT and reevaluate for SNU. 03/17: Afebrile overnight, on room air. Given additional dose of IV amiodarone and increased metoprolol to 75 mg twice daily due to continued A. fib. EKG this morning still appears to be in rate controlled A. fib. Per cardiology,continue Eliquis and Plavix, stop aspirin. Zosyn can change to p.o. Augmentin tomorrow if remains afebrile, and he may discharge this medication to complete outpatient regimen for pneumonia. Knee pain improved. PT/OT eval pending, however patient feels that he may be able to discharge home without rehab. Vitals/I&O Vitals/I&O: Vital Signs Date Time Temp Pulse Resp B/P (MAP) Pulse Ox O2 Delivery O2 Flow Rate FiO2 03/18/21 11:19 98.4 72 17 111/64 (80) 94 Room Air 98.4 I & O 03/17/21 03/17/21 03/18/21 15:00 23:00 07:00 Intake Total 780 ml 0 ml Output Total 100 ml Balance 780 ml -100 ml 0 ml Physical Exam General: Alert, Oriented X3, Cooperative, No acute distress Heart: Regular rate Lungs: Crackles Abdomen: Soft Extremities: Other (Mild edema to right foot and right knee) Skin: No rashes, No breakdown Labs Labs: Laboratory Tests Test 03/17/21 20:05 Vancomycin Level Trough 20.5 mcg/mL (10.0-20.0) Vancomycin Last Dose Date 03/17/21 Vancomycin Last Dose Time 0900 Assessment and Plan Assessmemt and Plan Problems Medical Problems: (1) ACS (acute coronary syndrome) Status: Acut Discharge to [facility] if bed available please see dictation Comment Review of Relevant I have reviewed the following items lindy (where applicable) has been applied. Medications: Current Medications Medications (Trade) Dose Ordered Sig/Juan Route PRN Reason Start Time Stop Time Status Last Admin Dose Admin Vancomycin HCl (Vancomycin Trough Level) 1 each 1X ONCE [facility] 03/17/21 20:30 03/17/21 20:31 DC 03/17/21 20:27 Justifications for Admission Other Justification OMKAR WESTFALL III DO Mar 18, 2021 12:53
[2021-03-18 15:26] VITALS: BP 112/63
--- NOTE | 2021-03-18 15:41 | PDOC2 ---
CONSULT Date of Consult Date of Consult DATE: 03/18/21 TIME: 15:33 Reason for Consult Reason for Consult: Metastatic prostate cancer Referring Physician Referring Physician: Dr. Whitlock Identification/Chief Complaint Chief Complaint Chest pain Source Source: Chart review, Patient History of Present Illness Reason for Visit: Patrice Calderon is an 80-year-old male with history of metastatic prostate cancer who has been admitted to the hospital with pneumonia. He was found to have elevated troponin at the time of his hospitalization. He was taken to the [facility] and cardiac catheterization showed 100% occlusion of small to medium caliber OM branch of LCX. Given late presentation, downtrending troponin and atypical chest pain, medical management was recommended. Echocardiogram showed preserved left ventricular ejection fraction. CTA chest was obtained and did not show PE. Discharged to rehab has been recommended and he is being discharged to detention at [facility]. This is scheduled for tomorrow at 9 AM. The patient has medical history of metastatic prostate cancer. This was diagnosed in 2018. He was found to have elevated PSA at the time. Biopsy was not obtained. He was started on antidepression therapy in 2017. CT chest, abdomen and pelvis were obtained in 2019 and showed multiple bone lesions. Due to high risk features (multiple bone lesions), he was started on abiraterone and prednisone in july 2018 and also continued on ADT. He reports following the [facility]. He received his last dose of leuprolide in January 2021. He reports his most recent PSA returned at less than 1. Medical oncology consultation has been sought for evaluation and management recommendations for prostate cancer. Current Problem List Problem List Problems Medical Problems: (1) ACS (acute coronary syndrome) Status: Acute Current Medications Current Medications Current Medications Heparin Sodium (Porcine) (Heparin Sodium) 4,000 unit 1X ONCE IV Last administered on 03/08/21at 21:37; Start 03/08/21 at 21:30; Stop 03/08/21 at 21:31; Status DC Heparin Sodium/ Dextrose 250 ml @ 0 mls/hr 1X ONCE IV ; Start 03/08/21 at 21:00; Stop 03/08/21 at 21:01; Status UNV Fentanyl Citrate (Fentanyl 2ml Vial) 50 mcg 1X ONCE IVP Last administered on 03/08/21at 21:41; Start 03/08/21 at 21:00; Stop 03/08/21 at 21:21; Status DC Heparin Sodium/ Dextrose 250 ml @ 10 mls/hr CONT PRN IV PER PROTOCOL Last administered on 03/09/21at 17:52; Start 03/08/21 at 21:30; Stop 03/10/21 at 09:37; Status DC Heparin Sodium (Porcine) (Heparin Sodium) 2,250 unit PRN Q6HRS PRN IV FOR UFH LEVEL LESS THAN 0.2 Last administered on 03/10/21at 06:46; Start 03/08/21 at 21:30; Stop 03/10/21 at 09:37; Status DC Info (Anti-Coagulation Monitoring By Pharmacy) 1 each PRN DAILY PRN MC PER PROTOCOL Last administered on 03/09/21at 11:56; Start 03/08/21 at 21:30; Stop 03/10/21 at 14:51; Status DC Potassium Chloride (Klor-Con) 40 meq 1X ONCE PO Last administered on 03/08/21at 22:22; Start 03/08/21 at 22:00; Stop 03/08/21 at 22:01; Status DC Magnesium Sulfate/ Dextrose 100 ml @ 100 mls/hr 1X ONCE IV Last administered on 03/08/21at 22:23; Start 03/08/21 at 22:00; Stop 03/08/21 at 22:59; Status DC Potassium Chloride/Water 100 ml @ 50 mls/hr 1X ONCE IV ; Start 03/08/21 at 21:45; Stop 03/08/21 at 23:44; Status UNV Potassium Chloride/Water 100 ml @ 100 mls/hr Q1H IV Last administered on 03/09/21at 01:03; Start 03/08/21 at 22:00; Stop 03/08/21 at 23:59; Status DC Ondansetron HCl (Zofran) 4 mg PRN Q8HRS PRN IVP NAUSEA/VOMITING 1ST CHOICE; Start 03/08/21 at 22:30; Stop 03/09/21 at 11:45; Status DC Fentanyl Citrate (Fentanyl 2ml Vial) 50 mcg PRN Q2HRS PRN IVP CHEST PAIN Last administered on 03/09/21at 09:00; Start 03/08/21 at 22:30 Sodium Chloride 1,000 ml @ 75 mls/hr 1X ONCE IV Last administered on at 01:48; Start 03/08/21 at 23:00; Stop 03/09/21 at 12:19; Status DC Sodium Chloride 500 ml @ 500 mls/hr 1X ONCE IV Last administered on 03/08/21at 22:48; Start 03/08/21 at 23:00; Stop 03/08/21 at 23:59; Status DC Morphine Sulfate (Morphine Sulfate) 4 mg 1X ONCE IVP Last administered on 03/08/21 22:47; Start 03/08/21 at 23:00; Stop 03/08/21 at 23:01; Status DC Vitamin D (Vitamin D3) 1,000 unit DAILY PO Last administered on 03/18/21 08:46; Start 03/09/21 at 10:00 Cyanocobalamin (Vitamin B-12) 1,000 mcg DAILY PO Last administered on 03/18/21 08:47; Start 03/09/21 at 10:00 Memantine (Namenda) 5 mg BID PO Last administered on 03/18/21at 08:49; Start 03/09/21 at 10:00 Tramadol HCl (Ultram) 50 mg PRN BID PRN PO PAIN; Start 03/09/21 at 09:30; Stop 03/09/21 at 09:32; Status DC Megestrol Acetate (Megace) 40 mg BID PO Last administered on 03/18/21 08:46; Start 03/09/21 at 10:00 Pantoprazole Sodium (Protonix) 40 mg DAILYAC PO Last administered on 03/18/21at 08:47; Start 03/09/21 at 10:00 Tramadol HCl (Ultram) 50 mg PRN Q6HRS PRN PO PAIN Last administered on 03/14/21at 21:19; Start 03/09/21 at 09:30 Ondansetron HCl (Zofran) 4 mg PRN Q6HRS PRN IVP NAUSEA/VOMITING; Start 03/09/21 at 09:45 Calcium Carbonate/ Glycine (Tums) 500 mg PRN Q3HRS PRN PO UPSET STOMACH; Start 03/09/21 at 09:45 Zolpidem Tartrate (Ambien) 5 mg PRN QHS PRN PO INSOMNIA, MAY REPEAT IN 1HR Last administered on 03/10/21at 20:55; Start 03/09/21 at 09:45 Info (Non-Icu Electrolyte Protocol) 1 ea PRN DAILY PRN MC SEE COMMENTS; Start 03/09/21 at 09:45 Oxycodone HCl (Roxicodone) 5 mg PRN Q3HRS PRN PO BREAKTHROUGH PAIN Last administered on 03/09/21at 20:50; Start 03/09/21 at 09:45 Acetaminophen (Tylenol) 650 mg PRN Q6HRS PRN PO Headaches, Temp > 101.5F Last administered on 03/16/21at 18:41; Start 03/09/21 at 09:45 Senna/Docusate Sodium (Senna Plus) 1 tab BID PO Last administered on 03/18/21at 08:49; Start 03/09/21 at 21:00 Iohexol (Omnipaque 350 Mg/ml) 90 ml 1X ONCE IV Last administered on 03/09/21at 09:50; Start 03/09/21 at 09:45; Stop 03/09/21 at 09:46; Status DC Nitroglycerin (Nitro-Dur 0.4mg) 1 patch DAILY TD Last administered on 03/18/21at 09:00; Start 03/09/21 at 10:00 Morphine Sulfate (Morphine Sulfate) 4 mg PRN Q2HR PRN IV PAIN Last administered on 03/09/21at 20:51; Start 03/09/21 at 09:45 Non-Formulary Medication (Abiraterone Acetate (Zytiga)) 4 tab DAILYAC PO Last administered on 03/18/21at 09:01; Start 03/09/21 at 11:30 Doxycycline Hyclate (Vibra-Tab) 100 mg BID PO Last administered on 03/14/21at 21:19; Start 03/09/21 at 13:00; Stop 03/15/21 at 08:54; Status DC Ampicillin Sodium/ Sulbactam Sodium 1.5 gm/Sodium Chloride 50 ml @ 100 mls/hr Q6HRS IV Last administered on 03/11/21at 11:41; Start 03/09/21 at 14:00; Stop 03/11/21 at 14:52; Status DC Nitroglycerin (Nitrostat) 0.4 mg PRN Q5MIN PRN SL CHEST PAIN Last administered on 03/09/21at 18:04; Start 03/09/21 at 18:00 Nitroglycerin (Nitrostat) 0.4 mg STK-MED ONCE SL ; Start 03/09/21 at 18:02; Stop 03/09/21 at 18:02; Status DC Nitroglycerin/ Dextrose 250 ml @ 1.5 mls/hr CONT PRN IV SEE I/O RECORD Last administered on 03/09/21at 20:52; Start 03/09/21 at 18:30 Digoxin (Lanoxin) 500 mcg 1X ONCE IV Last administered on 03/10/21at 03:13; Start 03/10/21 at 03:30; Stop 03/10/21 at 03:31; Status DC Digoxin (Lanoxin) 250 mcg 1X ONCE IV Last administered on 03/10/21at 04:51; Start 03/10/21 at 05:00; Stop 03/10/21 at 05:01; Status DC Diltiazem HCl 125 mg/Sodium Chloride 125 ml @ 5 mls/hr CONT PRN IV PER PROTOCOL Last administered on 03/10/21at 06:13; Start 03/10/21 at 04:45; Stop 03/10/21 at 09:36; Status DC Iodixanol (Visipaque 320) 100 ml STK-MED ONCE .ROUTE ; Start 03/10/21 at 07:56; Stop 03/10/21 at 07:56; Status DC Lidocaine HCl (Xylocaine-Mpf 1% 2ml Vial) 2 ml STK-MED ONCE .ROUTE ; Start 03/10/21 at 07:56; Stop 03/10/21 at 07:56; Status DC Heparin Sodium/ Sodium Chloride 1,000 ml @ As Directed STK-MED ONCE .ROUTE ; Start 03/10/21 at 07:56; Stop 03/10/21 at 07:56; Status DC Fentanyl Citrate (Fentanyl 2ml Vial) 100 mcg STK-MED ONCE .ROUTE ; Start 03/10/21 at 08:10; Stop 03/10/21 at 08:10; Status DC Midazolam HCl (Versed) 2 mg STK-MED ONCE .ROUTE ; Start 03/10/21 at 08:10; Stop 03/10/21 at 08:11; Status DC Heparin Sodium (Porcine) (Heparin Sodium) 10,000 unit STK-MED ONCE .ROUTE ; Start 03/10/21 at 08:11; Stop 03/10/21 at 08:11; Status DC Verapamil HCl (Verapamil) 5 mg STK-MED ONCE .ROUTE ; Start 03/10/21 at 08:11; Stop 03/10/21 at 08:11; Status DC Nitroglycerin (Nitroglycerin) 200 mcg STK-MED ONCE .ROUTE ; Start 03/10/21 at 08:11; Stop 03/10/21 at 08:11; Status DC Nitroglycerin (Nitroglycerin) 200 mcg 1X ONCE IART Last administered on 03/10/21at 08:30; Start 03/10/21 at 08:30; Stop 03/10/21 at 08:31; Status DC Verapamil HCl (Verapamil) 2.5 mg 1X ONCE IART Last administered on 03/10/21at 08:30; Start 03/10/21 at 08:30; Stop 03/10/21 at 08:31; Status DC Heparin Sodium (Porcine) (Heparin Sodium) 2,500 unit 1X ONCE IART Last administered on 03/10/21at 08:30; Start 03/10/21 at 08:30; Stop 03/10/21 at 08:31; Status DC Heparin Sodium/ Sodium Chloride (HEPARIN for ARTERIAL LINE FLUSH) 1,000 unit 1X ONCE IART Last administered on 03/10/21at 08:30; Start 03/10/21 at 08:30; Stop 03/10/21 at 08:31; Status DC Midazolam HCl (Versed) 2 mg 1X ONCE IV Last administered on 03/10/21at 08:30; Start 03/10/21 at 08:30; Stop 03/10/21 at 08:31; Status DC Fentanyl Citrate (Fentanyl 2ml Vial) 100 mcg 1X ONCE IV Last administered on 03/10/21at 08:30; Start 03/10/21 at 08:30; Stop 03/10/21 at 08:31; Status DC Iodixanol (Visipaque 320) 100 ml 1X ONCE IART Last administered on 03/10/21at 08:30; Start 03/10/21 at 08:30; Stop 03/10/21 at 08:31; Status DC Lidocaine HCl (Xylocaine-Mpf 1% 2ml Vial) 2 ml 1X ONCE INJ Last administered on 03/10/21at 08:30; Start 03/10/21 at 08:30; Stop 03/10/21 at 08:31; Status DC Sodium Chloride 1,000 ml @ 75 mls/hr [id number] IV Last administered on 03/18/21at 04:25; Start 03/10/21 at 09:45 Aspirin (Ecotrin) 325 mg DAILYWBKFT PO Last administered on 03/11/21at 08:44; Start 03/11/21 at 08:00; Stop 03/11/21 at 11:24; Status DC Clopidogrel Bisulfate (Plavix) 75 mg DAILYWBKFT PO Last administered on 03/14/21at 08:44; Start 03/11/21 at 08:00; Stop 03/14/21 at 15:06; Status DC Metoprolol Tartrate (Lopressor) 25 mg BID PO Last administered on 03/10/21at 20:56; Start 03/10/21 at 10:30; Stop 03/11/21 at 11:24; Status DC Atorvastatin Calcium (Lipitor) 40 mg QHS PO Last administered on 03/17/21at 19:37; Start 03/10/21 at 21:00 Clopidogrel Bisulfate (Plavix) 300 mg 1X ONCE PO Last administered on 03/10/21at 09:43; Start 03/10/21 at 09:45; Stop 03/10/21 at 09:46; Status DC Potassium Chloride (Klor-Con) 40 meq 1X ONCE PO Last administered on 03/10/21at 13:14; Start 03/10/21 at 13:00; Stop 03/10/21 at 13:01; Status DC Amiodarone HCl 150 mg/Dextrose 103 ml @ 600 mls/hr 1X ONCE IV Last administered on 03/11/21at 13:08; Start 03/11/21 at 11:30; Stop 03/11/21 at 11:40; Status DC Amiodarone HCl 450 mg/Dextrose 259 ml @ 0 mls/hr CONT PRN IV SEE I/O RECORD Last administered on 03/11/21at 22:44; Start 03/11/21 at 11:30; Stop 03/12/21 at 11:29; Status DC Apixaban (Eliquis) 5 mg BID PO Last administered on 03/14/21at 08:45; Start 03/11/21 at 12:00; Stop 03/14/21 at 15:06; Status DC Info (Anti-Coagulation Monitoring By Pharmacy) 1 each PRN DAILY PRN MC PER P ROTOCOL; Start 03/11/21 at 11:45 Amoxicillin/ Clavulanate Potassium (Augmentin 875/ 125mg) 1 tab BID PO Last administered on 03/11/21at 21:52; Start 03/11/21 at 21:00; Stop 03/12/21 at 06:51; Status DC Potassium Chloride (Klor-Con) 40 meq 1X ONCE PO ; Start 03/11/21 at 17:00; Stop 03/11/21 at 17:01; Status UNV Piperacillin Sod/ Tazobactam Sod (Zosyn Per Pharmacy) 1 each PRN DAILY PRN MC SEE COMMENTS; Start 03/12/21 at 06:45; Stop 03/15/21 at 08:54; Status DC Piperacillin Sod/ Tazobactam Sod 4.5 gm/Sodium Chloride 100 ml @ 200 mls/hr Q8HRS IV Last administered on 03/13/21at 06:00; Start 03/12/21 at 07:00; Stop 03/13/21 at 07:16; Status DC Magnesium Sulfate/ Dextrose 100 ml @ 100 mls/hr 1X ONCE IV Last administered on 03/12/21at 11:51; Start 03/12/21 at 10:00; Stop 03/12/21 at 10:59; Status DC Potassium Chloride (Klor-Con) 40 meq 1X ONCE PO Last administered on 03/12/21at 09:37; Start 03/12/21 at 09:30; Stop 03/12/21 at 09:32; Status DC Prednisone (Prednisone) 5 mg BID PO Last administered on 03/18/21at 08:49; Start 03/12/21 at 12:00 Metoprolol Tartrate (Lopressor Vial) 5 mg 1X ONCE IVP Last administered on 03/12/21at 11:12; Start 03/12/21 at 11:00; Stop 03/12/21 at 11:04; Status DC Aspirin (Ecotrin) 81 mg DAILYWBKFT PO Last administered on 03/16/21at 09:40; Start 03/13/21 at 08:00; Stop 03/16/21 at 14:49; Status DC Amiodarone HCl (Cordarone) 200 mg DAILY PO Last administered on 03/18/21at 08:47; Start 03/12/21 at 16:00 Sodium Chloride 1,000 ml @ 100 mls/hr 1X ONCE IV Last administered on 03/12/21at 20:30; Start 03/12/21 at 19:30; Stop 03/13/21 at 05:29; Status DC Potassium Chloride (Klor-Con) 40 meq Q4H PO Last administered on 03/13/21at 08:20; Start 03/13/21 at 05:00; Stop 03/13/21 at 09:01; Status DC Piperacillin Sod/ Tazobactam Sod 4.5 gm/Sodium Chloride 100 ml @ 200 mls/hr Q6HRS IV Last administered on 03/15/21at 05:19; Start 03/13/21 at 12:00; Stop 03/15/21 at 08:54; Status DC Vancomycin HCl (Vanco Per Pharmacy) 1 each PRN DAILY PRN MC SEE COMMENTS Last administered on 03/13/21at 08:56; Start 03/13/21 at 08:00; Stop 03/14/21 at 06:14; Status DC Vancomycin HCl 2 gm/Sodium Chloride 500 ml @ 250 mls/hr 1X ONCE IV Last administered on 03/13/21at 08:19; Start 03/13/21 at 09:00; Stop 03/13/21 at 10:59; Status DC Vancomycin HCl 1.5 gm/Sodium Chloride 500 ml @ 250 mls/hr Q12H IV Last administered on 03/13/21at 22:03; Start 03/13/21 at 20:00; Stop 03/14/21 at 06:14; Status DC Vancomycin HCl (Vancomycin Trough Level) 1 each 1X ONCE MC ; Start 03/14/21 at 19:30; Stop 03/14/21 at 06:20; Status DC Potassium Chloride (Klor-Con) 20 meq 1X ONCE PO Last administered on 1at 22:03; Start 03/13/21 at 20:00; Stop 03/13/21 at 20:12; Status DC Methylprednisolone Acetate (DEPO-Medrol 40MG VIAL) 40 mg 1X ONCE IM Last administered on 03/14/21at 10:00; Start 03/14/21 at 10:00; Stop 03/14/21 at 10:01; Status DC Bupivacaine HCl (Sensorcaine-Mpf 0.25%) 10 ml 1X ONCE IJ Last administered on 03/14/21at 10:00; Start 03/14/21 at 10:00; Stop 03/14/21 at 10:01; Status DC Potassium Chloride (Klor-Con) 40 meq 1X ONCE PO Last administered on 03/14/21at 14:37; Start 03/14/21 at 10:45; Stop 03/14/21 at 10:46; Status DC Apixaban (Eliquis) 5 mg BID PO Last administered on 03/18/21at 08:51; Start 03/16/21 at 09:00 Clopidogrel Bisulfate (Plavix) 75 mg DAILYWBKFT PO Last administered on 03/18/21at 08:47; Start 03/15/21 at 16:00 Cefazolin Sodium/ Dextrose 50 ml @ 100 mls/hr 1X ONCE IV ; Start 03/15/21 at 06:00; Stop 03/15/21 at 08:43; Status DC Daptomycin 500 mg/ Sodium Chloride 50 ml @ 100 mls/hr 1X ONCE IV Last administered on 03/15/21at 12:29; Start 03/15/21 at 10:00; Stop 03/15/21 at 10:29; Status DC Cefazolin Sodium 1 gm/Sodium Chloride 100 ml @ 600 mls/hr 1X ONCE IRR Last administered on 03/15/21at 12:28; Start 03/15/21 at 08:45; Stop 03/15/21 at 08:54; Status DC Guaifenesin (MUCINEX ER with DM) 1 tab BID PO Last administered on 03/18/21at 08:46; Start 03/15/21 at 09:00 Amoxicillin/ Clavulanate Potassium (Augmentin 875/ 125mg) 1 tab BID PO Last administered on 03/15/21at 21:34; Start 03/15/21 at 12:00; Stop 03/16/21 at 09:04; Status DC Midazolam HCl (Versed) 2 mg STK-MED ONCE .ROUTE ; Start 03/15/21 at 10:56; Stop 03/15/21 at 10:56; Status DC Fentanyl Citrate (Fentanyl 2ml Vial) 100 mcg STK-MED ONCE .ROUTE ; Start 03/15/21 at 10:56; Stop 03/15/21 at 10:57; Status DC Lidocaine/ Epinephrine (LIDOCAINE 2%-EPI 1:100,000 multi-dose) 20 ml STK-MED ONCE .ROUTE ; Start 03/15/21 at 11:22; Stop 03/15/21 at 11:22; Status DC Midazolam HCl (Versed) 2 mg STK-MED ONCE .ROUTE ; Start 03/15/21 at 11:36; Stop 03/15/21 at 11:36; Status DC Midazolam HCl (Versed) 2 mg 1X ONCE IV Last administered on 03/15/21at 12:31; Start 03/15/21 at 12:15; Stop 03/15/21 at 12:16; Status DC Fentanyl Citrate (Fentanyl 2ml Vial) 100 mcg 1X ONCE IV Last administered on 03/15/21at 12:32; Start 03/15/21 at 12:15; Stop 03/15/21 at 12:16; Status DC Lidocaine/ Epinephrine (LIDOCAINE 2%-EPI 1:100,000 multi-dose) 20 ml 1X ONCE IJ Last administered on 03/15/21at 12:31; Start 03/15/21 at 12:15; Stop 03/15/21 at 12:16; Status DC Cefazolin Sodium/ Dextrose 50 ml @ 100 mls/hr 1X ONCE IV ; Start 03/15/21 at 13:15; Stop 03/15/21 at 13:44; Status UNV Digoxin (Lanoxin) 500 mcg 1X ONCE IV Last administered on 03/15/21at 13:32; Start 03/15/21 at 13:00; Stop 03/15/21 at 13:03; Status DC Metoprolol Tartrate (Lopressor) 25 mg BID PO Last administered on 03/16/21at 09:41; Start 03/15/21 at 16:45; Stop 03/16/21 at 14:49; Status DC Metoprolol Tartrate (Lopressor Vial) 5 mg PRN Q6HRS PRN IVP HYPERTENSION Last administered on 03/15/21at 15:35; Start 03/15/21 at 15:30 Potassium Chloride (Klor-Con) 40 meq 1X ONCE PO Last administered on 03/15/21at 21:34; Start 03/15/21 at 21:15; Stop 03/15/21 at 21:16; Status DC Potassium Chloride (Klor-Con) 40 meq 1X ONCE PO Last administered on 03/15/21at 22:46; Start 03/15/21 at 21:45; Stop 03/15/21 at 21:46; Status DC Piperacillin Sod/ Tazobactam Sod (Zosyn Per Pharmacy) 1 each PRN DAILY PRN MC SEE COMMENTS; Start 03/16/21 at 09:15 Vancomycin HCl (Vanco Per Pharmacy) 1 each PRN DAILY PRN MC SEE COMMENTS Last administered on 03/18/21at 03:22; Start 03/16/21 at 09:15 Piperacillin Sod/ Tazobactam Sod 4.5 gm/Sodium Chloride 100 ml @ 200 mls/hr Q6HRS IV Last administered on 03/18/21at 12:01; Start 03/16/21 at 10:00 Vancomycin HCl 2 gm/Sodium Chloride 500 ml @ 250 mls/hr 1X ONCE IV Last administered on 03/16/21at 12:15; Start 03/16/21 at 11:00; Stop 03/16/21 at 12:59; Status DC Vancomycin HCl 1.5 gm/Sodium Chloride 500 ml @ 250 mls/hr Q12H IV Last administered on 03/17/21at 21:24; Start 03/16/21 at 22:00; Stop 03/18/21 at 03:14; Status DC Vancomycin HCl (Vancomycin Trough Level) 1 each 1X ONCE MC Last administered on 03/17/21at 20:27; Start 03/17/21 at 20:30; Stop 03/17/21 at 20:31; Status DC Metoprolol Tartrate (Lopressor) 75 mg BID PO Last administered on 03/18/21at 08:51; Start 03/16/21 at 15:00 Digoxin (Lanoxin) 500 mcg 1X ONCE IV Last administered on 03/16/21at 16:02; Start 03/16/21 at 15:00; Stop 03/16/21 at 15:01; Status DC Amiodarone HCl 150 mg/Dextrose 103 ml @ 618 mls/hr 1X ONCE IV Last administered on 03/16/21at 16:01; Start 03/16/21 at 15:00; Stop 03/16/21 at 15:09; Status DC Lactobacillus Rhamnosus (Culturelle) 1 cap BID PO Last administered on 03/18/21at 08:47; Start 03/16/21 at 21:00 Vancomycin HCl 2 gm/Sodium Chloride 500 ml @ 250 mls/hr Q18H IV ; Start 03/18/21 at 16:00 Active Scripts Active Reported Vitamin D3 (Vitamin D) 25 Mcg Tablet 25 Mcg PO DAILY 1,000 UNITS = 25 MCG B-12 (Cyanocobalamin (Vitamin B-12)) 1,000 Mcg Tablet 1,000 Mcg PO DAILY Folic Acid 0.4 Mg Tablet 1 Mg PO DAILY Tramadol Hcl 50 Mg Tablet 50 Mg PO PRN BID PRN Calcium Carbonate 650 Mg Tablet 2 Tab PO DAILY 30 Days Megestrol Acetate 40 Mg Tablet 40 Mg PO BID Namenda (Memantine Hcl) 10 Mg Tablet 5 Mg PO BID Omeprazole 20 Mg Capsule.dr 20 Mg PO DAILY Prednisone 2.5 Mg Tablet 5 Mg PO BID Zytiga (Abiraterone Acetate) 250 Mg Tablet 4 Tab PO DAILY 30 Days Allergies Allergies: Coded Allergies: No Known Drug Allergies (Unverified , 03/08/21) ROS Review of System Negative unless stated otherwise in HPI Physical Exam Physical Exam General: Awake, alert, no distress Head: Atraumatic, no conjunctival icterus, normal oral cavity mucosa Neck: Supple, no lymphadenopathy Chest: No trauma noted Cardiovascular: Regular rhythm, normal rate, no murmurs Respiratory: Bilateral air entry noted, lungs clear to auscultation bilaterally. No accessory muscle use Abdominal: Abdomen is soft, nontender, nondistended. Bowel sounds were normal. No hepatomegaly or splenomegaly Musculoskeletal: No deformity noted Extremities: No edema noted Skin: No rash or lesions Neurologic: Alert and oriented x3, no grossly evident neurologic deficits noted. Full neurological exam was not performed Psychiatric: Appropriate mood and affect Vitals VITALS Vital Signs Date Time Temp Pulse Resp B/P (MAP) Pulse Ox O2 Delivery O2 Flow Rate FiO2 03/18/21 15:26 98.6 76 18 112/63 (79) 94 Room Air 98.6 Labs Labs Laboratory Tests Test 03/17/21 20:05 Vancomycin Level Trough 20.5 mcg/mL (10.0-20.0) Vancomycin Last Dose Date 03/17/21 Vancomycin Last Dose Time 0900 Laboratory Tests Test 03/17/21 20:05 Vancomycin Level Trough 20.5 mcg/mL (10.0-20.0) Vancomycin Last Dose Date 03/17/21 Vancomycin Last Dose Time 0900 Assessment/Plan Assessment/Plan Assessment: Metastatic prostate cancer, on ADT plus abiraterone plus prednisone Bone metastasis Coronary artery disease Atrial fibrillation Non-ST elevation TN Recommendations -Given recent normal PSA, do not believe he has disease progression. CT findings of bone mets are incidental and previously known -Continue current medical therapy with abiraterone plus prednisone and leuprolide every 3 months -Consider starting bone strengthening agent such as Xgeva as outpatient -Patient was given contact information for [facility] in case he wants to transfer care. -Continue follow-up with [facility] in the interim. -No additional inpatient oncologic work-up required -Rest per Dr. Whitlock. Michael Harris MD Medical Oncology/Hematology Ph: [phone] EZ HARRIS MD Mar 18, 2021 15:41
[2021-03-18] MEDS: VANCOMYCIN 2 GM in IV NORMAL SALINE 500ML BAG 500 ML IV SCH ×2 (16:00→16:14)
[2021-03-18 19:45] VITALS: BP 117/60
[2021-03-18] MEDS: ATORVASTATIN CALCIUM 40 MG TABLET. PO SCH (20:41)
[2021-03-18] MEDS: AMOXICILLIN/K CLAV 875/125MG TABLET. PO SCH (21:06)
[2021-03-18 23:05] VITALS: BP 113/56
[2021-03-19 03:00] VITALS: BP 127/86
[2021-03-19] MEDS: PANTOPRAZOLE 40 MG TABLET.DR. PO SCH ×2 (06:24→08:43)
[2021-03-19] MEDS: IV 1/2 NORMAL SALINE 1,000 ML IV SCH (06:24)
[2021-03-19] MEDS: ABIRATERONE ACETATE PO SCH (06:25)
[2021-03-19 07:33] VITALS: BP 104/52
[2021-03-19] MEDS: AMOXICILLIN/K CLAV 875/125MG TABLET. PO SCH (08:43)
[2021-03-19] MEDS: LACTOBACILLUS RHAMNOSUS GG 1 CAPSULE. PO SCH (08:43)
[2021-03-19] MEDS: MEGESTROL 20 MG TABLET. PO SCH (08:43)
[2021-03-19] MEDS: NITROGLYCERIN 0.4MG/HR PATCH. TD SCH (08:43)
[2021-03-19] MEDS: predniSONE 5 MG TABLET PO SCH (08:43)
[2021-03-19] MEDS: guaiFENesin DM 600/30MG 1 TAB TAB.ER.12H PO SCH (08:44)
[2021-03-19] MEDS: CLOPIDOGREL BISULFATE 75 MG TABLET PO SCH (08:44)
[2021-03-19] MEDS: AMIODARONE HCL 200 MG TABLET. PO SCH (08:44)
[2021-03-19] MEDS: MEMANTINE 5 MG TABLET. PO SCH (08:44)
[2021-03-19] MEDS: SENNOSIDES/DOCUSATE 8.6/50MG TABLET. PO SCH (08:44)
[2021-03-19] MEDS: CYANOCOBALAMIN (VITAMIN B-12) 1,000 MCG TABLET. PO SCH (08:44)
[2021-03-19] MEDS: APIXABAN 5 MG TABLET. PO SCH (08:44)
[2021-03-19 09:00] VITALS: BP 104/52
[2021-03-19] MEDS: CHOLECALCIFEROL (VITAMIN D3) 1,000 UNIT TABLET PO SCH (09:00)
[2021-03-19] MEDS: METOPROLOL TART IMMED RELEASE 25 MG TABLET. PO SCH (09:00)
--- NOTE | 2021-03-19 09:22 | PDOC ---
PROGRESS NOTES Date of Service DATE: 03/19/21 TIME: 09:20 Subjective Subjective No new complaints. Objective Objective Vital Signs Date Time Temp Pulse Resp B/P (MAP) Pulse Ox O2 Delivery O2 Flow Rate FiO2 03/19/21 09:00 100 104/52 03/19/21 08:00 Room Air 2.0 03/19/21 07:33 97.6 18 96 97.6 Intake and Output 03/19/21 07:00 Intake Total 100 ml Output Total 750 ml Balance -650 ml Intake Oral 100 ml Output Urine Total 750 ml # Voids 1 # Bowel Movements 2 Physical Exam Physical Exam He is sitting on bedside commode and he did walk for short distances with roller walker with physical therapy yesterday but required assistance for transfers. Assessment Assessment Problems Medical Problems: (1) ACS (acute coronary syndrome) Status: Acute Plan Plan of Care Agree with plans for SNF transfer when medically stable. Comment Review of Relevant I have reviewed the following items lindy (where applicable) has been applied. Labs Laboratory Tests Test 03/17/21 20:05 Vancomycin Level Trough 20.5 mcg/mL (10.0-20.0) Vancomycin Last Dose Date 03/17/21 Vancomycin Last Dose Time 0900 Microbiology 03/11/21 Blood Culture - Final, Complete NO GROWTH AFTER 5 DAYS Medications Current Medications Heparin Sodium (Porcine) (Heparin Sodium) 4,000 unit 1X ONCE IV Last administered on 03/08/21at 21:37; Start 03/08/21 at 21:30; Stop 03/08/21 at 21:31; Status DC Heparin Sodium/ Dextrose 250 ml @ 0 mls/hr 1X ONCE IV ; Start 03/08/21 at 21:00; Stop 03/08/21 at 21:01; Status UNV Fentanyl Citrate (Fentanyl 2ml Vial) 50 mcg 1X ONCE IVP Last administered on 03/08/21at 21:41; Start 03/08/21 at 21:00; Stop 03/08/21 at 21:21; Status DC Heparin Sodium/ Dextrose 250 ml @ 10 mls/hr CONT PRN IV PER PROTOCOL Last administered on 03/09/21at 17:52; Start 03/08/21 at 21:30; Stop 03/10/21 at 09:37; Status DC Heparin Sodium (Porcine) (Heparin Sodium) 2,250 unit PRN Q6HRS PRN IV FOR UFH LEVEL LESS THAN 0.2 Last administered on 03/10/21at 06:46; Start 03/08/21 at 21:30; Stop 03/10/21 at 09:37; Status DC Info (Anti-Coagulation Monitoring By Pharmacy) 1 each PRN DAILY PRN MC PER PROTOCOL Last administered on 03/09/21at 11:56; Start 03/08/21 at 21:30; Stop 03/10/21 at 14:51; Status DC Potassium Chloride (Klor-Con) 40 meq 1X ONCE PO Last administered on 03/08/21at 22:22; Start 03/08/21 at 22:00; Stop 03/08/21 at 22:01; Status DC Magnesium Sulfate/ Dextrose 100 ml @ 100 mls/hr 1X ONCE IV Last administered on 03/08/21at 22:23; Start 03/08/21 at 22:00; Stop 03/08/21 at 22:59; Status DC Potassium Chloride/Water 100 ml @ 50 mls/hr 1X ONCE IV ; Start 03/08/21 at 21:45; Stop 03/08/21 at 23:44; Status UNV Potassium Chloride/Water 100 ml @ 100 mls/hr Q1H IV Last administered on 03/09/21at 01:03; Start 03/08/21 at 22:00; Stop 03/08/21 at 23:59; Status DC Ondansetron HCl (Zofran) 4 mg PRN Q8HRS PRN IVP NAUSEA/VOMITING 1ST CHOICE; Start 03/08/21 at 22:30; Stop 03/09/21 at 11:45; Status DC Fentanyl Citrate (Fentanyl 2ml Vial) 50 mcg PRN Q2HRS PRN IVP CHEST PAIN Last administered on 03/09/21at 09:00; Start 03/08/21 at 22:30 Sodium Chloride 1,000 ml @ 75 mls/hr 1X ONCE IV Last administered on 03/09/21at 01:48; Start 03/08/21 at 23:00; Stop 03/09/21 at 12:19; Status DC Sodium Chloride 500 ml @ 500 mls/hr 1X ONCE IV Last administered on 03/08/21at 22:48; Start 03/08/21 at 23:00; Stop 03/08/21 at 23:59; Status DC Morphine Sulfate (Morphine Sulfate) 4 mg 1X ONCE IVP Last administered on 03/08/21at 22:47; Start 03/08/21 at 23:00; Stop 03/08/21 at 23:01; Status DC Vitamin D (Vitamin D3) 1,000 unit DAILY PO Last administered on 03/18/21at 08:46; Start 03/09/21 at 10:00 Cyanocobalamin (Vitamin B-12) 1,000 mcg DAILY PO Last administered on 03/19/21at 08:44; Start 03/09/21 at 10:00 Memantine (Namenda) 5 mg BID PO Last administered on 03/19/21at 08:44; Start 03/09/21 at 10:00 Tramadol HCl (Ultram) 50 mg PRN BID PRN PO PAIN; Start 03/09/21 at 09:30; Stop 03/09/21 at 09:32; Status DC Megestrol Acetate (Megace) 40 mg BID PO Last administered on 03/19/21at 08:43; Start 03/09/21 at 10:00 Pantoprazole Sodium (Protonix) 40 mg DAILYAC PO Last administered on 03/19/21at 08:43; Start 03/09/21 at 10:00 Tramadol HCl (Ultram) 50 mg PRN Q6HRS PRN PO PAIN Last administered on 03/14/21at 21:19; Start 03/09/21 at 09:30 Ondansetron HCl (Zofran) 4 mg PRN Q6HRS PRN IVP NAUSEA/VOMITING; Start 03/09/21 at 09:45 Calcium Carbonate/ Glycine (Tums) 500 mg PRN Q3HRS PRN PO UPSET STOMACH; Start 03/09/21 at 09:45 Zolpidem Tartrate (Ambien) 5 mg PRN QHS PRN PO INSOMNIA, MAY REPEAT IN 1HR Last administered on 03/10/21at 20:55; Start 03/09/21 at 09:45 Info (Non-Icu Electrolyte Protocol) 1 ea PRN DAILY PRN MC SEE COMMENTS; Start 03/09/21 at 09:45 Oxycodone HCl (Roxicodone) 5 mg PRN Q3HRS PRN PO BREAKTHROUGH PAIN Last administered on 03/09/21at 20:50; Start 03/09/21 at 09:45 Acetaminophen (Tylenol) 650 mg PRN Q6HRS PRN PO Headaches, Temp > 101.5F Last a dministered on 03/16/21at 18:41; Start 03/09/21 at 09:45 Senna/Docusate Sodium (Senna Plus) 1 tab BID PO Last administered on 03/19/21at 08:44; Start 03/09/21 at 21:00 Iohexol (Omnipaque 350 Mg/ml) 90 ml 1X ONCE IV Last administered on 03/09/21at 09:50; Start 03/09/21 at 09:45; Stop 03/09/21 at 09:46; Status DC Nitroglycerin (Nitro-Dur 0.4mg) 1 patch DAILY TD Last administered on 03/19/21 08:43; Start 03/09/21 at 10:00 Morphine Sulfate (Morphine Sulfate) 4 mg PRN Q2HR PRN IV PAIN Last administered on 03/09/21at 20:51; Start 03/09/21 at 09:45 Non-Formulary Medication (Abiraterone Acetate (Zytiga)) 4 tab DAILYAC PO Last administered on 03/19/21at 06:25; Start 03/09/21 at 11:30 Doxycycline Hyclate (Vibra-Tab) 100 mg BID PO Last administered on 03/14/21at 21:19; Start 03/09/21 at 13:00; Stop 03/15/21 at 08:54; Status DC Ampicillin Sodium/ Sulbactam Sodium 1.5 gm/Sodium Chloride 50 ml @ 100 mls/hr Q6HRS IV Last administered on 03/11/21at 11:41; Start 03/09/21 at 14:00; Stop 03/11/21 at 14:52; Status DC Nitroglycerin (Nitrostat) 0.4 mg PRN Q5MIN PRN SL CHEST PAIN Last administered on 03/09/21at 18:04; Start 03/09/21 at 18:00 Nitroglycerin (Nitrostat) 0.4 mg STK-MED ONCE SL ; Start 03/09/21 at 18:02; Stop 03/09/21 at 18:02; Status DC Nitroglycerin/ Dextrose 250 ml @ 1.5 mls/hr CONT PRN IV SEE I/O RECORD Last administered on 03/09/21at 20:52; Start 03/09/21 at 18:30 Digoxin (Lanoxin) 500 mcg 1X ONCE IV Last administered on 03/10/21at 03:13; Start 03/10/21 at 03:30; Stop 03/10/21 at 03:31; Status DC Digoxin (Lanoxin) 250 mcg 1X ONCE IV Last administered on 03/10/21at 04:51; Start 03/10/21 at 05:00; Stop 03/10/21 at 05:01; Status DC Diltiazem HCl 125 mg/Sodium Chloride 125 ml @ 5 mls/hr CONT PRN IV PER PROTOCOL Last administered on 03/10/21at 06:13; Start 03/10/21 at 04:45; Stop 03/10/21 at 09:36; Status DC Iodixanol (Visipaque 320) 100 ml STK-MED ONCE .ROUTE ; Start 03/10/21 at 07:56; Stop 03/10/21 at 07:56; Status DC Lidocaine HCl (Xylocaine-Mpf 1% 2ml Vial) 2 ml STK-MED ONCE .ROUTE ; Start 03/10/21 at 07:56; Stop 03/10/21 at 07:56; Status DC Heparin Sodium/ Sodium Chloride 1,000 ml @ As Directed STK-MED ONCE .ROUTE ; Start 03/10/21 at 07:56; Stop 03/10/21 at 07:56; Status DC Fentanyl Citrate (Fentanyl 2ml Vial) 100 mcg STK-MED ONCE .ROUTE ; Start 03/10/21 at 08:10; Stop 03/10/21 at 08:10; Status DC Midazolam HCl (Versed) 2 mg STK-MED ONCE .ROUTE ; Start 03/10/21 at 08:10; Stop 03/10/21 at 08:11; Status DC Heparin Sodium (Porcine) (Heparin Sodium) 10,000 unit STK-MED ONCE .ROUTE ; Start 03/10/21 at 08:11; Stop 03/10/21 at 08:11; Status DC Verapamil HCl (Verapamil) 5 mg STK-MED ONCE .ROUTE ; Start 03/10/21 at 08:11; Stop 03/10/21 at 08:11; Status DC Nitroglycerin (Nitroglycerin) 200 mcg STK-MED ONCE .ROUTE ; Start 03/10/21 at 08:11; Stop 03/10/21 at 08:11; Status DC Nitroglycerin (Nitroglycerin) 200 mcg 1X ONCE IART Last administered on 03/10/21 08:30; Start 03/10/21 at 08:30; Stop 03/10/21 at 08:31; Status DC Verapamil HCl (Verapamil) 2.5 mg 1X ONCE IART Last administered on 03/10/21 08:30; Start 03/10/21 at 08:30; Stop 03/10/21 at 08:31; Status DC Heparin Sodium (Porcine) (Heparin Sodium) 2,500 unit 1X ONCE IART Last administered on 03/10/21at 08:30; Start 03/10/21 at 08:30; Stop 03/10/21 at 08:31; Status DC Heparin Sodium/ Sodium Chloride (HEPARIN for ARTERIAL LINE FLUSH) 1,000 unit 1X ONCE IART Last administered on 03/10/21 08:30; Start 03/10/21 at 08:30; Stop 03/10/21 at 08:31; Status DC Midazolam HCl (Versed) 2 mg 1X ONCE IV Last administered on 03/10/21at 08:30; Start 03/10/21 at 08:30; Stop 03/10/21 at 08:31; Status DC Fentanyl Citrate (Fentanyl 2ml Vial) 100 mcg 1X ONCE IV Last administered on 03/10/21 08:30; Start 03/10/21 at 08:30; Stop 03/10/21 at 08:31; Status DC Iodixanol (Visipaque 320) 100 ml 1X ONCE IART Last administered on 03/10/21 08:30; Start 03/10/21 at 08:30; Stop 03/10/21 at 08:31; Status DC Lidocaine HCl (Xylocaine-Mpf 1% 2ml Vial) 2 ml 1X ONCE INJ Last administered on 03/10/21 08:30; Start 03/10/21 at 08:30; Stop 03/10/21 at 08:31; Status DC Sodium Chloride 1,000 ml @ 75 mls/hr [id number] IV Last administered on 03/18/21at 04:25; Start 03/10/21 at 09:45 Aspirin (Ecotrin) 325 mg DAILYWBKFT PO Last administered on 03/11/21at 08:44; Start 03/11/21 at 08:00; Stop 03/11/21 at 11:24; Status DC Clopidogrel Bisulfate (Plavix) 75 mg DAILYWBKFT PO Last administered on 03/14/21at 08:44; Start 03/11/21 at 08:00; Stop 03/14/21 at 15:06; Status DC Metoprolol Tartrate (Lopressor) 25 mg BID PO Last administered on 03/10/21at 20:56; Start 03/10/21 at 10:30; Stop 03/11/21 at 11:24; Status DC Atorvastatin Calcium (Lipitor) 40 mg QHS PO Last administered on 03/18/21at 20:41; Start 03/10/21 at 21:00 Clopidogrel Bisulfate (Plavix) 300 mg 1X ONCE PO Last administered on 03/10/21at 09:43; Start 03/10/21 at 09:45; Stop 03/10/21 at 09:46; Status DC Potassium Chloride (Klor-Con) 40 meq 1X ONCE PO Last administered on 03/10/21at 13:14; Start 03/10/21 at 13:00; Stop 03/10/21 at 13:01; Status DC Amiodarone HCl 150 mg/Dextrose 103 ml @ 600 mls/hr 1X ONCE IV Last administered on 03/11/21at 13:08; Start 03/11/21 at 11:30; Stop 03/11/21 at 11:40; Status DC Amiodarone HCl 450 mg/Dextrose 259 ml @ 0 mls/hr CONT PRN IV SEE I/O RECORD Last administered on 03/11/21at 22:44; Start 03/11/21 at 11:30; Stop 03/12/21 at 11:29; Status DC Apixaban (Eliquis) 5 mg BID PO Last administered on 03/14/21at 08:45; Start 03/11/21 at 12:00; Stop 03/14/21 at 15:06; Status DC Info (Anti-Coagulation Monitoring By Pharmacy) 1 each PRN DAILY PRN MC PER PROTOCOL; Start 03/11/21 at 11:45 Amoxicillin/ Clavulanate Potassium (Augmentin 875/ 125mg) 1 tab BID PO Last administered on 03/11/21at 21:52; Start 03/11/21 at 21:00; Stop 03/12/21 at 06:51; Status DC Potassium Chloride (Klor-Con) 40 meq 1X ONCE PO ; Start 03/11/21 at 17:00; Stop 03/11/21 at 17:01; Status UNV Piperacillin Sod/ Tazobactam Sod (Zosyn Per Pharmacy) 1 each PRN DAILY PRN MC SEE COMMENTS; Start 03/12/21 at 06:45; Stop 03/15/21 at 08:54; Status DC Piperacillin Sod/ Tazobactam Sod 4.5 gm/Sodium Chloride 100 ml @ 200 mls/hr Q8HRS IV Last administered on 03/13/21at 06:00; Start 03/12/21 at 07:00; Stop 03/13/21 at 07:16; Status DC Magnesium Sulfate/ Dextrose 100 ml @ 100 mls/hr 1X ONCE IV Last administered on 03/12/21at 11:51; Start 03/12/21 at 10:00; Stop 03/12/21 at 10:59; Status DC Potassium Chloride (Klor-Con) 40 meq 1X ONCE PO Last administered on 03/12/21at 09:37; Start 03/12/21 at 09:30; Stop 03/12/21 at 09:32; Status DC Prednisone (Prednisone) 5 mg BID PO Last administered on 03/19/21at 08:43; Start 03/12/21 at 12:00 Metoprolol Tartrate (Lopressor Vial) 5 mg 1X ONCE IVP Last administered on 03/12/21at 11:12; Start 03/12/21 at 11:00; Stop 03/12/21 at 11:04; Status DC Aspirin (Ecotrin) 81 mg DAILYWBKFT PO Last administered on 03/16/21at 09:40; Start 03/13/21 at 08:00; Stop 03/16/21 at 14:49; Status DC Amiodarone HCl (Cordarone) 200 mg DAILY PO Last administered on 03/19/21at 08:44; Start 03/12/21 at 16:00 Sodium Chloride 1,000 ml @ 100 mls/hr 1X ONCE IV Last administered on 03/12/21at 20:30; Start 03/12/21 at 19:30; Stop 03/13/21 at 05:29; Status DC Potassium Chloride (Klor-Con) 40 meq Q4H PO Last administered on 03/13/21at 08:20; Start 03/13/21 at 05:00; Stop 03/13/21 at 09:01; Status DC Piperacillin Sod/ Tazobactam Sod 4.5 gm/Sodium Chloride 100 ml @ 200 mls/hr Q6HRS IV Last administered on 03/15/21at 05:19; Start 03/13/21 at 12:00; Stop 03/15/21 at 08:54; Status DC Vancomycin HCl (Vanco Per Pharmacy) 1 each PRN DAILY PRN MC SEE COMMENTS Last administered on 03/13/21at 08:56; Start 03/13/21 at 08:00; Stop 03/14/21 at 06:14; Status DC Vancomycin HCl 2 gm/Sodium Chloride 500 ml @ 250 mls/hr 1X ONCE IV Last administered on 03/13/21at 08:19; Start 03/13/21 at 09:00; Stop 03/13/21 at 10:59; Status DC Vancomycin HCl 1.5 gm/Sodium Chloride 500 ml @ 250 mls/hr Q12H IV Last administered on 03/13/21at 22:03; Start 03/13/21 at 20:00; Stop 03/14/21 at 06:14; Status DC Vancomycin HCl (Vancomycin Trough Level) 1 each 1X ONCE MC ; Start 03/14/21 at 19:30; Stop 03/14/21 at 06:20; Status DC Potassium Chloride (Klor-Con) 20 meq 1X ONCE PO Last administered on 03/13/21at 22:03; Start 03/13/21 at 20:00; Stop 03/13/21 at 20:12; Status DC Methylprednisolone Acetate (DEPO-Medrol 40MG VIAL) 40 mg 1X ONCE IM Last administered on 03/14/21at 10:00; Start 03/14/21 at 10:00; Stop 03/14/21 at 1 0:01; Status DC Bupivacaine HCl (Sensorcaine-Mpf 0.25%) 10 ml 1X ONCE IJ Last administered on 03/14/21at 10:00; Start 03/14/21 at 10:00; Stop 03/14/21 at 10:01; Status DC Potassium Chloride (Klor-Con) 40 meq 1X ONCE PO Last administered on 03/14/21 at 14:37; Start 03/14/21 at 10:45; Stop 03/14/21 at 10:46; Status DC Apixaban (Eliquis) 5 mg BID PO Last administered on 03/19/21at 08:44; Start 03/16/21 at 09:00 Clopidogrel Bisulfate (Plavix) 75 mg DAILYWBKFT PO Last administered on 03/19/21at 08:44; Start 03/15/21 at 16:00 Cefazolin Sodium/ Dextrose 50 ml @ 100 mls/hr 1X ONCE IV ; Start 03/15/21 at 06:00; Stop 03/15/21 at 08:43; Status DC Daptomycin 500 mg/ Sodium Chloride 50 ml @ 100 mls/hr 1X ONCE IV Last administered on 03/15/21at 12:29; Start 03/15/21 at 10:00; Stop 03/15/21 at 10:29; Status DC Cefazolin Sodium 1 gm/Sodium Chloride 100 ml @ 600 mls/hr 1X ONCE IRR Last administered on 03/15/21at 12:28; Start 03/15/21 at 08:45; Stop 03/15/21 at 08:54; Status DC Guaifenesin (MUCINEX ER with DM) 1 tab BID PO Last administered on 03/19/21at 08:44; Start 03/15/21 at 09:00 Amoxicillin/ Clavulanate Potassium (Augmentin 875/ 125mg) 1 tab BID PO Last administered on 03/15/21at 21:34; Start 03/15/21 at 12:00; Stop 03/16/21 at 09:04; Status DC Midazolam HCl (Versed) 2 mg STK-MED ONCE .ROUTE ; Start 03/15/21 at 10:56; Stop 03/15/21 at 10:56; Status DC Fentanyl Citrate (Fentanyl 2ml Vial) 100 mcg STK-MED ONCE .ROUTE ; Start 03/15/21 at 10:56; Stop 03/15/21 at 10:57; Status DC Lidocaine/ Epinephrine (LIDOCAINE 2%-EPI 1:100,000 multi-dose) 20 ml STK-MED ONCE .ROUTE ; Start 03/15/21 at 11:22; Stop 03/15/21 at 11:22; Status DC Midazolam HCl (Versed) 2 mg STK-MED ONCE .ROUTE ; Start 03/15/21 at 11:36; Stop 03/15/21 at 11:36; Status DC Midazolam HCl (Versed) 2 mg 1X ONCE IV Last administered on 03/15/21at 12:31; Start 03/15/21 at 12:15; Stop 03/15/21 at 12:16; Status DC Fentanyl Citrate (Fentanyl 2ml Vial) 100 mcg 1X ONCE IV Last administered on 03/15/21at 12:32; Start 03/15/21 at 12:15; Stop 03/15/21 at 12:16; Status DC Lidocaine/ Epinephrine (LIDOCAINE 2%-EPI 1:100,000 multi-dose) 20 ml 1X ONCE IJ Last administered on 03/15/21at 12:31; Start 03/15/21 at 12:15; Stop 03/15/21 at 12:16; Status DC Cefazolin Sodium/ Dextrose 50 ml @ 100 mls/hr 1X ONCE IV ; Start 03/15/21 at 13:15; Stop 03/15/21 at 13:44; Status UNV Digoxin (Lanoxin) 500 mcg 1X ONCE IV Last administered on 03/15/21at 13:32; Start 03/15/21 at 13:00; Stop 03/15/21 at 13:03; Status DC Metoprolol Tartrate (Lopressor) 25 mg BID PO Last administered on 03/16/21at 09:41; Start 03/15/21 at 16:45; Stop 03/16/21 at 14:49; Status DC Metoprolol Tartrate (Lopressor Vial) 5 mg PRN Q6HRS PRN IVP HYPERTENSION Last administered on 03/15/21at 15:35; Start 03/15/21 at 15:30 Potassium Chloride (Klor-Con) 40 meq 1X ONCE PO Last administered on 03/15/21at 21:34; Start 03/15/21 at 21:15; Stop 03/15/21 at 21:16; Status DC Potassium Chloride (Klor-Con) 40 meq 1X ONCE PO Last administered on 03/15/21at 22:46; Start 03/15/21 at 21:45; Stop 03/15/21 at 21:46; Status DC Piperacillin Sod/ Tazobactam Sod (Zosyn Per Pharmacy) 1 each PRN DAILY PRN MC SEE COMMENTS; Start 03/16/21 at 09:15; Stop 03/18/21 at 20:50; Status DC Vancomycin HCl (Vanco Per Pharmacy) 1 each PRN DAILY PRN MC SEE COMMENTS Last administered on 03/18/21at 03:22; Start 03/16/21 at 09:15; Stop 03/18/21 at 16:19; Status DC Piperacillin Sod/ Tazobactam Sod 4.5 gm/Sodium Chloride 100 ml @ 200 mls/hr Q6HRS IV Last administered on 03/18/21at 12:01; Start 03/16/21 at 10:00; Stop 03/18/21 at 20:50; Status DC Vancomycin HCl 2 gm/Sodium Chloride 500 ml @ 250 mls/hr 1X ONCE IV Last administered on 03/16/21at 12:15; Start 03/16/21 at 11:00; Stop 03/16/21 at 12:59; Status DC Vancomycin HCl 1.5 gm/Sodium Chloride 500 ml @ 250 mls/hr Q12H IV Last administered on 03/17/21at 21:24; Start 03/16/21 at 22:00; Stop 03/18/21 at 03:14; Status DC Vancomycin HCl (Vancomycin Trough Level) 1 each 1X ONCE MC Last administered on 03/17/21at 20:27; Start 03/17/21 at 20:30; Stop 03/17/21 at 20:31; Status DC Metoprolol Tartrate (Lopressor) 75 mg BID PO Last administered on 03/19/21at 09:00; Start 03/16/21 at 15:00 Digoxin (Lanoxin) 500 mcg 1X ONCE IV Last administered on 03/16/21at 16:02; Start 03/16/21 at 15:00; Stop 03/16/21 at 15:01; Status DC Amiodarone HCl 150 mg/Dextrose 103 ml @ 618 mls/hr 1X ONCE IV Last administe red on 03/16/21at 16:01; Start 03/16/21 at 15:00; Stop 03/16/21 at 15:09; Status DC Lactobacillus Rhamnosus (Culturelle) 1 cap BID PO Last administered on 03/19/21at 08:43; Start 03/16/21 at 21:00 Vancomycin HCl 2 gm/Sodium Chloride 500 ml @ 250 mls/hr Q18H IV ; Start 03/18/21 at 16:00; Stop 03/18/21 at 16:18; Status DC Amoxicillin/ Clavulanate Potassium (Augmentin 875/ 125mg) 1 tab BID PO Last administered on 03/19/21at 08:43; Start 03/18/21 at 21:00; Stop 03/21/21 at 09:01 Cefazolin Sodium/ Dextrose (Ancef 2gm Premix) 2 gm STK-MED ONCE IV ; Start 03/15/21 at 12:00; Stop 03/19/21 at 08:45; Status DC Active Scripts Active Amiodarone Hcl 200 Mg Tablet 200 Mg PO DAILY 30 Days Clopidogrel (Clopidogrel Bisulfate) 75 Mg Tablet 75 Mg PO DAILYWBKFT 30 Days Eliquis (Apixaban) 5 Mg Tablet 5 Mg PO BID 30 Days Reported Vitamin D3 (Vitamin D) 25 Mcg Tablet 25 Mcg PO DAILY 1,000 UNITS = 25 MCG B-12 (Cyanocobalamin (Vitamin B-12)) 1,000 Mcg Tablet 1,000 Mcg PO DAILY Folic Acid 0.4 Mg Tablet 1 Mg PO DAILY Tramadol Hcl 50 Mg Tablet 50 Mg PO PRN BID PRN Calcium Carbonate 650 Mg Tablet 2 Tab PO DAILY 30 Days Megestrol Acetate 40 Mg Tablet 40 Mg PO BID Namenda (Memantine Hcl) 10 Mg Tablet 5 Mg PO BID Omeprazole 20 Mg Capsule.dr 20 Mg PO DAILY Prednisone 2.5 Mg Tablet 5 Mg PO BID Zytiga (Abiraterone Acetate) 250 Mg Tablet 4 Tab PO DAILY 30 Days Vitals/I & O Vital Sign - Last 24 Hours 03/18/21 03/18/21 03/18/21 03/18/21 11:19 15:26 19:45 20:00 Temp 98.4 98.6 98.4 98.4 98.6 98.4 Pulse 72 76 83 Resp 17 18 20 B/P (MAP) 111/64 (80) 112/63 (79) 117/60 (79) Pulse Ox 94 94 95 O2 Delivery Room Air Room Air Room Air Room Air 03/18/21 03/18/21 03/19/21 03/19/21 20:41 23:05 03:00 07:33 Temp 98.6 97.7 97.6 98.6 97.7 97.6 Pulse 83 77 80 100 Resp 20 18 18 B/P (MAP) 117/60 113/56 (75) 127/86 (100) 104/52 (69) Pulse Ox 93 94 96 O2 Delivery Room Air Room Air Room Air 03/19/21 03/19/21 03/19/21 08:00 08:44 09:00 Pulse 100 100 B/P (MAP) 104/52 104/52 O2 Delivery Room Air O2 Flow Rate 2.0 Intake and Output 03/18/21 03/18/21 03/19/21 15:00 23:00 07:00 Intake Total 100 ml Output Total 200 ml 250 ml 300 ml Balance -200 ml -250 ml -200 ml Justifications for Admission Other Justification TAMI ANN MD Mar 19, 2021 09:22
[2021-03-19] MEDS ORDERED: TPN PER PHARMACY MC PRN (09:45)
--- NOTE | 2021-03-19 10:36 | NUR ---
DISCHARGED PATIENT TO [facility] AT 0910. DISCHARGE REPORT GIVEN TO NURSING STAFF AND SPOUSE/PATIENT. HEART MONITOR REMOVED. PATIENT OFF UNIT PER TRANSPORTATION.
== END 2021-03-19 09:05 | DRG 242 ==
LOC: ER 20:44 → 6 SOUTH 21:52
PROVIDERS: ADMIT Internal Medicine; ATTEND Internal Medicine
PROC: 4A023N7 Measurement of Cardiac Sampling and Pressure, Left Heart, Percutaneous Approach (ICD-10-PCS; 2021-03-10)
PROC: B215YZZ Fluoroscopy of Left Heart using Other Contrast (ICD-10-PCS; 2021-03-10)
PROC: B211YZZ Fluoroscopy of Multiple Coronary Arteries using Other Contrast (ICD-10-PCS; 2021-03-10)
PROC: 0JH606Z Insertion of Pacemaker, Dual Chamber into Chest Subcutaneous Tissue and Fascia, Open Approach (ICD-10-PCS; principal; 2021-03-15)
PROC: 02HK3JZ Insertion of Pacemaker Lead into Right Ventricle, Percutaneous Approach (ICD-10-PCS; 2021-03-15)
PROC: 02H63JZ Insertion of Pacemaker Lead into Right Atrium, Percutaneous Approach (ICD-10-PCS; 2021-03-15)
DX: I49.5 Sick sinus syndrome (principal); J96.90 Respiratory failure, unspecified, unspecified whether with hypoxia or hypercapnia; E43 Unspecified severe protein-calorie malnutrition; J18.9 Pneumonia, unspecified organism; I21.4 Non-ST elevation (NSTEMI) myocardial infarction; C79.51 Secondary malignant neoplasm of bone; I48.92 Unspecified atrial flutter; I48.91 Unspecified atrial fibrillation; C61 Malignant neoplasm of prostate; D64.9 Anemia, unspecified; E04.1 Nontoxic single thyroid nodule; E11.9 Type 2 diabetes mellitus without complications; E78.5 Hyperlipidemia, unspecified; E83.42 Hypomagnesemia; E87.6 Hypokalemia; F03.90 Unspecified dementia, unspecified severity, without behavioral disturbance, psychotic disturbance, mood disturbance, and anxiety; G89.29 Other chronic pain; I10 Essential (primary) hypertension; I25.10 Atherosclerotic heart disease of native coronary artery without angina pectoris; I48.0 Paroxysmal atrial fibrillation; I25.2 Old myocardial infarction; K21.9 Gastro-esophageal reflux disease without esophagitis; M17.11 Unilateral primary osteoarthritis, right knee; Z20.822 Contact with and (suspected) exposure to COVID-19; M47.816 Spondylosis without myelopathy or radiculopathy, lumbar region; M48.061 Spinal stenosis, lumbar region without neurogenic claudication; Z79.01 Long term (current) use of anticoagulants; Z79.02 Long term (current) use of antithrombotics/antiplatelets; Z79.82 Long term (current) use of aspirin; Z85.46 Personal history of malignant neoplasm of prostate; Z86.16 Personal history of COVID-19; Z95.0 Presence of cardiac pacemaker; Z96.643 Presence of artificial hip joint, bilateral; Z96.652 Presence of left artificial knee joint; E11.42 Type 2 diabetes mellitus with diabetic polyneuropathy; Z79.4 Long term (current) use of insulin
CPT/HCPCS: 33208; 36415; 71045; 71275; 72131; 73560; 73600; 73700; 76536; 80048; 80053; 80061; 80202; 81001; 83036; 83520; 83690; 83735; 83880; 83930; 84132; 84145; 84439; 84443; 84480; 84484; 84550; 85007; 85025; 85379; 85520; 86140; 86376; 87040; 87426; 87449; 87641; 87804; 93005; 93306; 93458; 93971; 96374; 99152; 99153; C1785; C1894; J0282; J0295; J0690; J0878; J1030; J1160; J1644; J2250; J2270; J2543; J3010; J3370; J3475; J3480; J3490; J7030; J7040; J7060; J7512; Q9967; U0003; U0005; 97110-GP; 97530-GO; 97530-GP; 97535-GO; 99285-25; G0378

== ENCOUNTER → 2021-09-04 | Outpatient (CLI) | payer MEDICARE, OTHER ==
[~2021-09-04] MED LIST: ABIR250T PO; AMIO200T53 PO; AMOX1TAB61 PO; APIX5TAB PO; ATOR40TA59 PO; CALC650T7 PO; CHOL10004 PO; CLOP75TA PO; CYAN100072 PO; FOLI0.4T5 PO; GADOTERATE 7.5 MMOL/15ML VIAL. IVP ONE; MEGE40TA3 PO; MEMA10TA PO; METO25TA4 PO; NITROGLYCERIN 0.4 MG/HR TD; OMEP20CA16 PO; PRED2.5T PO; TRAM50TA PO
--- NOTE | 2021-09-04 15:05 | NUR ---
pt A&O x4. tolerated MRI well. [employer] rep here to set pt's PM rate at 90 for the length of the MRI and it will automatically return to his regular settings when he is out of the MRI field. beginning VS b/p 147/89-hr 91, SPO2 100% RA. ending VS -b/p 129/79, HR 90, SPO2 100%.
--- NOTE | 2021-09-04 16:35 | RAD ---
EXAMINATION: Magnetic resonance imaging (MRI) of the lumbar spine with and without contrast 09/04/2021 1:38 PM HISTORY: Low back pain. TECHNIQUE: Multiplanar multi-weighted MRI of the lumbar spine was performed with and without intraven ous contrast using the standard lumbar spine protocol. Contrast information: Gadolinium based contrast. COMPARISON: CT lumbar spine 03/12/2021. FINDINGS: There is 2 mm retrolisthesis of L2 on L3. Osseous hemangioma identified at L1. Partial noninstrument osseous fusion at L5-S1. Conus medullaris terminates at T12-L1. Distal spinal cord signal intensity i s normal in all sequences. 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 There is S-shaped scoliosis of the thoracolumbar spine, stable from 03/12/2021. Sclerotic de nsity at T11 measures 0.9 cm suggestive of a bone island. Abdominal aorta is normal in caliber. Infer ior pole left renal cyst measures 1.3 cm. Visualized sacrum is intact. No suspicious enhancement iden tified. Susceptibility artifact identified within the posterior lumbar subcutaneous soft tissues. T10-T11: There is a sequential disc bulge. Ligamentum flavum infolding. Moderate spinal canal stenosi s with deformity of the conus. Limited evaluation for cord signal alteration given proximity to the e dge of the radiograph. T11-T12: Mild circumferential disc bulge. There is ligamentum flavum infolding. Moderate spinal canal stenosis with mild deformity of the conus. T12-L1: There is a circumferential disc bulge. Moderate facet arthropathy. Moderate bilateral neurofo raminal stenosis. Moderate spinal canal stenosis without deformity of the conus. L1-L2: There is a circumferential disc bulge. Mild facet arthropathy. Mild right neuroforaminal steno sis. Mild spinal canal stenosis. Mild right lateral recess stenosis. L2-L3: There is a circumferential disc bulge. Moderate facet arthropathy ligamentum flavum infolding. Moderate to severe bilateral neuroforaminal stenosis. Moderate spinal canal stenosis. Bilateral late ral recess stenosis. L3-L4: There is a circumferential disc bulge. Moderate to severe facet arthropathy ligamentum flavum infolding. Severe right and moderate to severe left neuroforaminal stenosis. Severe spinal canal sten osis. Bilateral lateral recess stenosis. L4-L5: There is a circumferential disc bulge. Severe facet arthropathy ligamentum flavum infolding. S evere left and moderate right neural foraminal stenosis. Moderate to severe spinal canal stenosis. Ri ght lateral recess stenosis. L5-S1: No significant disc herniation. Moderate facet arthropathy. No neuroforaminal or spinal canal stenosis. IMPRESSION: Advanced degenerative changes of the lumbar spine as described in detail above. Electronically signed by: Shayla Hoover MD (09/04/2021 4:33 PM) [id number]
== END ==
LOC: MRI 13:36
PROVIDERS: ATTEND Internal Medicine Medical Oncology
DX: M47.816 Spondylosis without myelopathy or radiculopathy, lumbar region (principal); M48.8X7 Other specified spondylopathies, lumbosacral region; N28.1 Cyst of kidney, acquired; M48.05 Spinal stenosis, thoracolumbar region; M48.8X5 Other specified spondylopathies, thoracolumbar region; M51.25 Other intervertebral disc displacement, thoracolumbar region; D18.09 Hemangioma of other sites; M43.16 Spondylolisthesis, lumbar region; M43.27 Fusion of spine, lumbosacral region
CPT/HCPCS: 72158; A9575